=== PATIENT | female | born 1955 | race Caucasian/White ===

== ENCOUNTER → 2016-12-10 | Outpatient (CLI) | payer OTHER ==
--- NOTE | 2016-12-12 16:03 | SLEEPCENT ---
DATE OF PROCEDURE: 12/10/2016 REFERRING PHYSICIAN: Corey Brown MD Nocturnal polysomnography was performed for the titration of pressure therapy in this patient with a clinical diagnosis of obstructive sleep apnea syndrome confirmed by home testing which revealed a respiratory event index of 27. For testing, the patient was fit with a ResMed Quattro full face mask of extra-small size. 4 cm of water pressure were applied to the circuit and the lights were extinguished. 7 hours and 46 minutes of data were reviewed. There were 285 minutes of sleep identified. Sleep latency was prolonged at 58 minutes. Rapid eye movement (REM) sleep was prolonged at 164 minutes. Sleep architecture improved late in the study. There were two REM periods appreciated. Overall sleep efficiency was 63%. EKG showed a sinus rhythm with an average heart rate of 58 beats per minute. EEG showed normal waveforms for awake and sleep. Respiratory events were fully palliated with CPAP at a pressure of +7. There was, however, some persistent limb activity and limb movement arousal index was 10.9. IMPRESSION: Obstructive sleep apnea syndrome (G47.33). Periodic limb movement disorder (G47.61). Limb movement arousal index 10.9. RECOMMENDATION: Nightly use of pressure therapy at 7 cm of water should be sufficient to address the patient's respiratory events. Interventions to reduce the frequency of arousals from limb activity may also be needed.
== END ==
LOC: M SLEEP 19:54
PROVIDERS: ATTEND Nurse Practitioner Adult Health
DX: G47.33 Obstructive sleep apnea (adult) (pediatric) (principal); G47.61 Periodic limb movement disorder

== ENCOUNTER → 2016-12-11 | Outpatient (CLI) | payer OTHER ==
--- NOTE | 2016-12-17 13:24 | RADONC ---
RADIATION ONCOLOGY FOLLOWUP NOTE DATE: 12/11/2016 CHART NUMBER: [id number] DIAGNOSIS: Left breast cancer. STAGE: IA, [id number]. ECOG PERFORMANCE STATUS: 0 FOLLOWUP NOTE: Ms. Castellanos is a very pleasant 61-year-old white female with the diagnosis of a stage IA A, [id number] well-differentiated invasive ductal carcinoma of the left breast who is presenting to us today for routine followup visit 8 months post completion of external beam radiation therapy. The patient presents today reporting that she is doing quite well with no complaints at this time related to her radiation therapy or disease. She has no breast or bone pain. REVIEW OF SYSTEMS: The patient's review of systems is noncontributory. She denies nausea, vomiting, fevers, chills, night sweats, diplopia, headaches, anxiety or depression, anorexia, weight loss, visual disturbances, chest pain, urinary or bowel difficulties, bone pain, or neurological problems. PHYSICAL EXAMINATION: The patient is a well-developed, well-nourished white female in no acute distress. HEENT exam is normocephalic, atraumatic. Extraocular movements are intact. There is no palpable cervical, supraclavicular, infraclavicular, axillary, or inguinal lymphadenopathy present. Lungs are clear to auscultation and percussion. Heart has a regular rate and rhythm. Abdomen is benign with no hepatosplenomegaly, masses, or tenderness. Breast examination reveals no masses or discharge bilaterally. Skeletal examination reveals no tenderness to pressure or percussion of the bony skeleton. Extremities reveal no clubbing, cyanosis, or edema. Neurologic exam is grossly intact, as is the remainder of the physical examination. ASSESSMENT: The patient is clinically KARINA at this time and will be seen by us again in 6 months for further followup. She will also continue be followed by her other physicians as well. cc: Corey Brown MD *Dr. Chang *Marta Daniels MD *Sol Vinson NP *Jarod Zuleta MD
== END ==
LOC: M ONCR 15:04
PROVIDERS: ATTEND Radiology Radiation Oncology
DX: C50.412 Malignant neoplasm of upper-outer quadrant of left female breast (principal)

== ENCOUNTER → 2016-12-24 | Outpatient (CLI) | payer OTHER | LOC: M WUC 10:51 | PROVIDERS: ATTEND Family Medicine | DX: D50.9 Iron deficiency anemia, unspecified (principal); E78.5 Hyperlipidemia, unspecified; E11.9 Type 2 diabetes mellitus without complications ==

== ENCOUNTER → 2016-12-24 | Outpatient (REF) | payer OTHER ==
[2016-12-24 14:41] LABS: BASO % 0.4 % (0.0-1.0); EOS # 0.2 K/mm3 (0.0-0.50); EOS % 2.1 % (0.0-3.0); LARGE UNSTAINED CELL # 0.2 K/mm3 (0.0-0.4); LARGE UNSTAINED CELL % 1.9 % (0.0-4.0); LYMPH # 1.4 K/mm3 (1.5-4.5); MEAN CORPUSCULAR HEMOGLOBIN 30.1 pg (27.0-33.0); MEAN CORPUSCULAR HGB CONC 33.7 g/dl (32.0-36.5); MEAN CORPUSCULAR VOLUME 89.5 fl (80.0-96.0); MONO # 0.6 K/mm3 (0.0-0.8); MONO % 5.8 % (0.0-5.0); NEUTROPHILS # 7.7 K/mm3 (1.8-7.7); NEUTROPHILS % 77.8 % (36.0-66.0); PLATELET COUNT, AUTOMATED 324 k/mm3 (150-450); RED CELL DISTRIBUTION WIDTH 12.6 % (11.5-14.5); WHITE BLOOD COUNT 9.9 K/mm3 (4.0-10.0)
[2016-12-24 14:52] LABS: ALBUMIN 3.5 GM/DL (3.2-5.2); ALBUMIN/GLOBULIN RATIO 1.06 (1.00-1.93); ALKALINE PHOSPHATASE 51 U/L (45-117); ALT/SGPT 23 U/L (12-78); ANION GAP 8 MEQ/L (8-16); AST/SGOT 15 U/L (15-37); BILIRUBIN,TOTAL 0.7 MG/DL (0.2-1.0); BLOOD UREA NITROGEN 15 MG/DL (7-18); CALCIUM LEVEL 8.9 MG/DL (8.8-10.2); CARBON DIOXIDE LEVEL 33 MEQ/L (21-32); CHLORIDE LEVEL 100 MEQ/L (98-107); CHOLESTEROL LEVEL 139 MG/DL (<200); CREATININE FOR GFR 0.74 MG/DL (0.55-1.02); FERRITIN 21 NG/ML (8-252); GLOMERULAR FILTRATION RATE > 60.0 (>45); GLUCOSE, FASTING 112 MG/DL (80-110); PERCENT SATURATION 23.2 % (13.2-37.4); POTASSIUM SERUM 4.2 MEQ/L (3.5-5.1); SODIUM LEVEL 141 MEQ/L (136-145); TOTAL IRON BINDING CAPACITY 488 UG/DL (250-450); TOTAL PROTEIN 6.8 GM/DL (6.4-8.2); TRIGLYCERIDES LEVEL 347 MG/DL (<150)
== END ==
LOC: M SFHCPLAZ 10:31
PROVIDERS: ATTEND Family Medicine
DX: D50.9 Iron deficiency anemia, unspecified (principal); E78.5 Hyperlipidemia, unspecified; E11.9 Type 2 diabetes mellitus without complications

== ENCOUNTER → 2017-03-03 | Outpatient (REF) | payer OTHER ==
[2017-03-03 19:19] LABS: FREE T4 1.26 NG/DL (0.76-1.46); PERCENT SATURATION 17.3 % (13.2-37.4)
[2017-03-03 20:23] LABS: BASO % 0.6 % (0.0-1.0); EOS # 0.2 K/mm3 (0.0-0.50); EOS % 2.2 % (0.0-3.0); LARGE UNSTAINED CELL # 0.2 K/mm3 (0.0-0.4); LARGE UNSTAINED CELL % 2.5 % (0.0-4.0); LYMPH # 1.6 K/mm3 (1.5-4.5); LYMPH % 16.9 % (24.0-44.0); MEAN CORPUSCULAR HEMOGLOBIN 30.1 pg (27.0-33.0); MEAN CORPUSCULAR HGB CONC 33.8 g/dl (32.0-36.5); MEAN CORPUSCULAR VOLUME 89.1 fl (80.0-96.0); MONO # 0.6 K/mm3 (0.0-0.8); NEUTROPHILS # 5.9 K/mm3 (1.8-7.7); NEUTROPHILS % 70.8 % (36.0-66.0); PLATELET COUNT, AUTOMATED 354 k/mm3 (150-450); RED CELL DISTRIBUTION WIDTH 12.4 % (11.5-14.5); WHITE BLOOD COUNT 8.3 K/mm3 (4.0-10.0)
== END ==
LOC: M SFHCPLAZ 15:34
PROVIDERS: ATTEND Family Medicine
DX: R53.83 Other fatigue (principal); D50.9 Iron deficiency anemia, unspecified; E55.9 Vitamin D deficiency, unspecified

== ENCOUNTER → 2017-05-13 | Outpatient (REF) | payer OTHER ==
[2017-05-13 13:39] LABS: BASO % 0.5 % (0.0-1.0); EOS # 0.2 10^3/uL (0.0-0.50); EOS % 2.5 % (0.0-3.0); IMMATURE GRANULOCYTE % 0.6 % (0-0); LYMPH # 1.5 10^3/uL (1.5-4.5); LYMPH % 17.6 % (24.0-44.0); MEAN CORPUSCULAR HEMOGLOBIN 29.6 pg (27.0-33.0); MEAN CORPUSCULAR HGB CONC 32.9 g/dl (32.0-36.5); MEAN CORPUSCULAR VOLUME 89.8 fl (80.0-96.0); MONO # 0.7 10^3/uL (0.0-0.8); MONO % 8.8 % (0.0-5.0); NEUTROPHILS # 5.8 10^3/uL (1.8-7.7); PLATELET COUNT, AUTOMATED 295 10^3/uL (150-450); RED CELL DISTRIBUTION WIDTH 12.6 % (11.5-14.5); WHITE BLOOD COUNT 8.3 10^3/uL (4.0-10.0)
[2017-05-13 14:01] LABS: ALBUMIN 3.3 GM/DL (3.2-5.2); ALBUMIN/GLOBULIN RATIO 0.97 (1.00-1.93); ALKALINE PHOSPHATASE 57 U/L (45-117); ALT/SGPT 21 U/L (12-78); ANION GAP 9 MEQ/L (8-16); AST/SGOT 13 U/L (15-37); BILIRUBIN,TOTAL 0.6 MG/DL (0.2-1.0); BLOOD UREA NITROGEN 13 MG/DL (7-18); CALCIUM LEVEL 8.6 MG/DL (8.8-10.2); CARBON DIOXIDE LEVEL 32 MEQ/L (21-32); CHLORIDE LEVEL 101 MEQ/L (98-107); CREATININE FOR GFR 0.61 MG/DL (0.55-1.02); FERRITIN 21 NG/ML (8-252); GLOMERULAR FILTRATION RATE > 60.0 (>45); GLUCOSE, FASTING 93 MG/DL (80-110); POTASSIUM SERUM 3.9 MEQ/L (3.5-5.1); SODIUM LEVEL 142 MEQ/L (136-145); TOTAL PROTEIN 6.7 GM/DL (6.4-8.2)
== END ==
LOC: M SFHCPLAZ 10:09
PROVIDERS: ATTEND Family Medicine
DX: D50.9 Iron deficiency anemia, unspecified (principal); E55.9 Vitamin D deficiency, unspecified; E11.9 Type 2 diabetes mellitus without complications

== ENCOUNTER → 2017-06-03 | Outpatient (REF) | payer OTHER | LOC: M LAB REF 16:59 | PROVIDERS: ATTEND Family Medicine | DX: D23.5 Other benign neoplasm of skin of trunk (principal) ==

== ENCOUNTER → 2017-08-20 | Outpatient (REF) | payer OTHER ==
[2017-08-20 15:29] LABS: HEMATOCRIT 41.6 % (36.0-47.0); MEAN CORPUSCULAR HEMOGLOBIN 29.9 pg (27.0-33.0); MEAN CORPUSCULAR HGB CONC 33.7 g/dl (32.0-36.5); MEAN CORPUSCULAR VOLUME 88.9 fl (80.0-96.0); PLATELET COUNT, AUTOMATED 371 10^3/uL (150-450); RED BLOOD COUNT 4.68 10^6/uL (4.00-5.40); RED CELL DISTRIBUTION WIDTH 12.2 % (11.5-14.5); WHITE BLOOD COUNT 13.6 10^3/uL (4.0-10.0)
[2017-08-20 15:59] LABS: FERRITIN 55 NG/ML (8-252); IRON (FE) 55 UG/DL (50-170); PERCENT SATURATION 13.5 % (13.2-45.0); TOTAL IRON BINDING CAPACITY 407 UG/DL (250-450)
== END ==
LOC: M SFHCPLAZ 14:21
DX: R31.9 Hematuria, unspecified (principal)

== ENCOUNTER → 2017-12-10 | Outpatient (CLI) | payer OTHER | LOC: M ONCR 14:11 | DX: C50.412 Malignant neoplasm of upper-outer quadrant of left female breast (principal) | CPT/HCPCS: G0463 ==

== ENCOUNTER → 2017-12-15 | Outpatient (REF) | payer OTHER ==
[2017-12-15 13:40] LABS: ALBUMIN 3.2 GM/DL (3.2-5.2); ALBUMIN/GLOBULIN RATIO 0.94 (1.00-1.93); ALKALINE PHOSPHATASE 59 U/L (45-117); ALT/SGPT 18 U/L (12-78); ANION GAP 9 MEQ/L (8-16); AST/SGOT 14 U/L (7-37); BILIRUBIN,TOTAL 0.4 MG/DL (0.2-1.0); BLOOD UREA NITROGEN 15 MG/DL (7-18); C REACTIVE PROTEIN QUANTITATIV < 0.30 MG/DL (0.00-0.30); CALCIUM LEVEL 8.1 MG/DL (8.8-10.2); CARBON DIOXIDE LEVEL 29 MEQ/L (21-32); CHLORIDE LEVEL 102 MEQ/L (98-107); CHOLESTEROL LEVEL 114 MG/DL (<200); CHOLESTEROL RISK RATIO 3.677 (<5); CPK CREATINE PHOSPHOKINASE 65 U/L (26-192); CREATININE FOR GFR 0.62 MG/DL (0.55-1.30); GLOMERULAR FILTRATION RATE > 60.0 (>45); GLUCOSE, FASTING 97 MG/DL (70-100); HDL CHOLESTEROL 31 MG/DL (>40); LDL CHOLESTEROL 22.8 MG/DL (<100); MAGNESIUM LEVEL 1.9 MG/DL (1.8-2.4); NON-HDL-C 83 MG/DL; POTASSIUM SERUM 3.6 MEQ/L (3.5-5.1); SODIUM LEVEL 140 MEQ/L (136-145); TOTAL PROTEIN 6.6 GM/DL (6.4-8.2); TRIGLYCERIDES LEVEL 301 MG/DL (<150)
[2017-12-15 13:44] LABS: TOTAL 25(OH) VITAMIN D 71.2 NG/ML (30.0-100.0)
[2017-12-15 13:45] LABS: ESTIMATED AVERAGE GLUCOSE 134 MG/DL (60-110); HEMOGLOBIN A1c 6.3 %; PTH INTACT 68.7 PG/ML (18.5-88.0); VITAMIN B12 LEVEL 1391 PG/ML (247-911)
[2017-12-18 00:07] LABS: BORDETELLA PARAPERTUSSIS PCR Negative (Negative); BORDETELLA PERTUSSIS BY PCR Negative (Negative); INSULIN LEVEL 27.5 uIU/mL (2.6-24.9)
== END ==
LOC: M SFHCPLAZ 10:04
DX: E78.5 Hyperlipidemia, unspecified (principal); E11.9 Type 2 diabetes mellitus without complications; I10 Essential (primary) hypertension; R05 Cough; E55.9 Vitamin D deficiency, unspecified; D50.9 Iron deficiency anemia, unspecified

== ENCOUNTER → 2018-01-13 | Outpatient (REF) | payer OTHER | LOC: M SFHCPLAZ 17:00 | DX: N30.01 Acute cystitis with hematuria (principal) | CPT/HCPCS: 87086 ==

== ENCOUNTER → 2018-04-30 | Outpatient (REF) | payer MEDICARE, OTHER, SELFPAY ==
[2018-04-30 15:12] LABS: BASO % 0.5 % (0.0-1.0); EOS # 0.2 10^3/uL (0.0-0.50); EOS % 2.7 % (0.0-3.0); HEMATOCRIT 42.6 % (36.0-47.0); HEMOGLOBIN 13.9 g/dl (12.0-15.5); IMMATURE GRANULOCYTE % 0.6 % (0-3.0); LYMPH # 1.5 10^3/uL (1.5-4.5); LYMPH % 17.3 % (24.0-44.0); MEAN CORPUSCULAR HEMOGLOBIN 29.4 pg (27.0-33.0); MEAN CORPUSCULAR HGB CONC 32.6 g/dl (32.0-36.5); MEAN CORPUSCULAR VOLUME 90.3 fl (80.0-96.0); MONO # 0.8 10^3/uL (0.0-0.8); MONO % 9.4 % (0.0-5.0); NEUTROPHILS # 5.9 10^3/uL (1.8-7.7); NEUTROPHILS % 69.5 % (36.0-66.0); PLATELET COUNT, AUTOMATED 312 10^3/uL (150-450); RED BLOOD COUNT 4.72 10^6/uL (4.00-5.40); RED CELL DISTRIBUTION WIDTH 12.4 % (11.5-14.5); RETIC HEMOGLOBIN EQUIVALENT 34.7 pg (24-36); RETICULOCYTE # 99.1 10^9/L (17-77); RETICULOCYTE % 2.1 % (0.5-1.5); WHITE BLOOD COUNT 8.5 10^3/uL (4.0-10.0)
[2018-04-30 15:26] LABS: ALBUMIN 3.5 GM/DL (3.2-5.2); ALBUMIN/GLOBULIN RATIO 1.09 (1.00-1.93); ALKALINE PHOSPHATASE 50 U/L (45-117); ALT/SGPT 20 U/L (12-78); ANION GAP 10 MEQ/L (8-16); AST/SGOT 14 U/L (7-37); BILIRUBIN,TOTAL 0.5 MG/DL (0.2-1.0); BLOOD UREA NITROGEN 17 MG/DL (7-18); CALCIUM LEVEL 8.8 MG/DL (8.8-10.2); CARBON DIOXIDE LEVEL 28 MEQ/L (21-32); CHLORIDE LEVEL 102 MEQ/L (98-107); CREATININE FOR GFR 0.74 MG/DL (0.55-1.30); GLOMERULAR FILTRATION RATE > 60.0 (>45); GLUCOSE, FASTING 112 MG/DL (70-100); POTASSIUM SERUM 3.9 MEQ/L (3.5-5.1); SODIUM LEVEL 140 MEQ/L (136-145); TOTAL PROTEIN 6.7 GM/DL (6.4-8.2)
[2018-04-30 15:43] LABS: ESTIMATED AVERAGE GLUCOSE 131 MG/DL (60-110); HEMOGLOBIN A1c 6.2 %
[2018-04-30 15:58] LABS: PTH INTACT 39.5 PG/ML (18.5-88.0); TOTAL 25(OH) VITAMIN D 90.8 NG/ML (30.0-100.0)
[2018-05-01 14:14] LABS: INSULIN LEVEL 25.8 uIU/mL (2.6-24.9)
== END ==
LOC: M SFHCPLAZ 10:26
DX: D50.9 Iron deficiency anemia, unspecified (principal); E55.9 Vitamin D deficiency, unspecified; E11.9 Type 2 diabetes mellitus without complications
CPT/HCPCS: 83525

== ENCOUNTER → 2018-12-24 | Outpatient (REF) | payer MEDICARE ==
[2018-12-24 13:27] LABS: BASO # 0.1 10^3/uL (0.0-0.2); BASO % 0.5 % (0.0-1.0); EOS # 0.2 10^3/uL (0.0-0.50); EOS % 2.6 % (0.0-3.0); HEMATOCRIT 41.6 % (36.0-47.0); HEMOGLOBIN 13.3 g/dl (12.0-15.5); LYMPH # 1.3 10^3/uL (1.5-4.5); LYMPH % 13.9 % (24.0-44.0); MEAN CORPUSCULAR HEMOGLOBIN 29.1 pg (27.0-33.0); MONO # 0.7 10^3/uL (0.0-0.8); MONO % 7.9 % (0.0-5.0); NEUTROPHILS # 6.8 10^3/uL (1.8-7.7); NEUTROPHILS % 74.8 % (36.0-66.0); PLATELET COUNT, AUTOMATED 336 10^3/uL (150-450); RED BLOOD COUNT 4.57 10^6/uL (4.00-5.40); WHITE BLOOD COUNT 9.1 10^3/uL (4.0-10.0)
[2018-12-24 14:46] LABS: HEMOGLOBIN A1c 6.4 %
== END ==
LOC: M SFHCPLAZ 09:43
PROVIDERS: ATTEND Family Medicine
DX: D50.9 Iron deficiency anemia, unspecified (principal); E11.9 Type 2 diabetes mellitus without complications

== ENCOUNTER → 2019-05-04 | Outpatient (REF) | payer MEDICARE ==
[2019-05-04 12:46] LABS: ALBUMIN 3.2 GM/DL (3.2-5.2); ALT/SGPT 17 U/L (12-78); BILIRUBIN,TOTAL 0.4 MG/DL (0.2-1.0); BLOOD UREA NITROGEN 14 MG/DL (7-18); CALCIUM LEVEL 8.8 MG/DL (8.8-10.2); CARBON DIOXIDE LEVEL 30 MEQ/L (21-32); CHLORIDE LEVEL 101 MEQ/L (98-107); CREATININE FOR GFR 0.55 MG/DL (0.55-1.30); GLOMERULAR FILTRATION RATE > 60.0 (>45); GLUCOSE, FASTING 95 MG/DL (70-100); MAGNESIUM LEVEL 1.7 MG/DL (1.8-2.4); NT-PRO BNP 47 PG/ML (<125); POTASSIUM SERUM 4.2 MEQ/L (3.5-5.1); SODIUM LEVEL 139 MEQ/L (136-145); TOTAL PROTEIN 6.4 GM/DL (6.4-8.2)
== END ==
LOC: M SFHCPLAZ 10:23
PROVIDERS: ATTEND Family Medicine
DX: I10 Essential (primary) hypertension (principal)

== ENCOUNTER → 2019-06-22 | Outpatient (REF) | payer MEDICARE ==
[2019-06-22 12:39] LABS: BASO % 0.3 % (0.0-1.0); EOS # 0.3 10^3/uL (0.0-0.5); HEMATOCRIT 40.8 % (36.0-47.0); HEMOGLOBIN 12.9 g/dl (12.0-15.5); LYMPH # 1.6 10^3/uL (1.5-5.0); LYMPH % 17.2 % (24.0-44.0); MEAN CORPUSCULAR HEMOGLOBIN 28.9 pg (27.0-33.0); MEAN CORPUSCULAR HGB CONC 31.6 g/dl (32.0-36.5); MEAN CORPUSCULAR VOLUME 91.3 fl (80.0-96.0); MONO # 0.9 10^3/uL (0.0-0.8); MONO % 9.7 % (0.0-5.0); NEUTROPHILS # 6.3 10^3/uL (1.5-8.5); NEUTROPHILS % 69.5 % (36.0-66.0); PLATELET COUNT, AUTOMATED 320 10^3/uL (150-450); RED BLOOD COUNT 4.47 10^6/uL (4.00-5.40)
[2019-06-22 12:49] LABS: ALBUMIN 3.4 GM/DL (3.2-5.2); ALT/SGPT 17 U/L (12-78); BILIRUBIN,TOTAL 0.5 MG/DL (0.2-1.0); BLOOD UREA NITROGEN 16 MG/DL (7-18); CARBON DIOXIDE LEVEL 31 MEQ/L (21-32); CHLORIDE LEVEL 100 MEQ/L (98-107); CHOLESTEROL LEVEL 130 MG/DL (<200); CHOLESTEROL RISK RATIO 2.954 (<5); CPK CREATINE PHOSPHOKINASE 85 U/L (26-192); CREATININE FOR GFR 0.65 MG/DL (0.55-1.30); FREE T4 1.19 NG/DL (0.76-1.46); GLOMERULAR FILTRATION RATE > 60.0 (>45); GLUCOSE, FASTING 94 MG/DL (70-100); HDL CHOLESTEROL 44 MG/DL (>40); LDL CHOLESTEROL 32 MG/DL (<100); NON-HDL-C 86 MG/DL; POTASSIUM SERUM 4.1 MEQ/L (3.5-5.1); SODIUM LEVEL 138 MEQ/L (136-145); TOTAL PROTEIN 6.8 GM/DL (6.4-8.2); TRIGLYCERIDES LEVEL 272 MG/DL (<150)
[2019-06-22 12:51] LABS: PTH INTACT 57.8 PG/ML (18.5-88.0); TOTAL 25(OH) VITAMIN D 72.7 NG/ML (30.0-100.0)
[2019-06-22 13:06] LABS: HEMOGLOBIN A1c 6.4 %
== END ==
LOC: M SFHCPLAZ 09:45
PROVIDERS: ATTEND Family Medicine
DX: E11.9 Type 2 diabetes mellitus without complications (principal); D50.9 Iron deficiency anemia, unspecified; E78.5 Hyperlipidemia, unspecified; E55.9 Vitamin D deficiency, unspecified

== ENCOUNTER → 2020-02-28 | Outpatient (CLI) | payer MEDICARE ==
[2020-02-28 11:53] LABS: BASO % 0.4 % (0.0-1.0); EOS # 0.3 10^3/uL (0.0-0.5); EOS % 3.4 % (0.0-3.0); HEMOGLOBIN 12.4 g/dl (12.0-15.5); LYMPH # 1.7 10^3/uL (1.5-5.0); LYMPH % 17.7 % (24.0-44.0); MEAN CORPUSCULAR HEMOGLOBIN 28.2 pg (27.0-33.0); MEAN CORPUSCULAR HGB CONC 31.8 g/dl (32.0-36.5); MEAN CORPUSCULAR VOLUME 88.6 fl (80.0-96.0); MONO # 0.9 10^3/uL (0.0-0.8); MONO % 9.7 % (0.0-5.0); NEUTROPHILS # 6.4 10^3/uL (1.5-8.5); NEUTROPHILS % 68.4 % (36.0-66.0); PLATELET COUNT, AUTOMATED 339 10^3/uL (150-450); WHITE BLOOD COUNT 9.3 10^3/uL (4.0-10.0)
[2020-02-28 12:38] LABS: ALBUMIN 3.2 GM/DL (3.2-5.2); ALT/SGPT 16 U/L (12-78); BILIRUBIN,TOTAL 0.3 MG/DL (0.2-1.0); BLOOD UREA NITROGEN 18 MG/DL (7-18); C REACTIVE PROTEIN QUANTITATIV < 0.30 MG/DL (0.00-0.30); CALCIUM LEVEL 8.4 MG/DL (8.8-10.2); CARBON DIOXIDE LEVEL 29 MEQ/L (21-32); CHLORIDE LEVEL 100 MEQ/L (98-107); CHOLESTEROL LEVEL 129 MG/DL (<200); CHOLESTEROL RISK RATIO 3.486 (<5); CPK CREATINE PHOSPHOKINASE 82 U/L (26-192); CREATININE FOR GFR 0.59 MG/DL (0.55-1.30); FREE T4 1.14 NG/DL (0.76-1.46); GLOMERULAR FILTRATION RATE > 60.0 (>45); GLUCOSE, FASTING 98 MG/DL (70-100); HDL CHOLESTEROL 37 MG/DL (>40); LDL CHOLESTEROL 32 MG/DL (<100); NON-HDL-C 92 MG/DL; POTASSIUM SERUM 3.8 MEQ/L (3.5-5.1); SODIUM LEVEL 139 MEQ/L (136-145); TOTAL PROTEIN 6.7 GM/DL (6.4-8.2); TRIGLYCERIDES LEVEL 298 MG/DL (<150)
[2020-02-28 13:10] LABS: VITAMIN B12 LEVEL 783 PG/ML (247-911)
[2020-02-28 16:13] LABS: HEMOGLOBIN A1c 5.9 %
== END ==
LOC: M WUC 09:44
PROVIDERS: ATTEND Family Medicine
DX: E78.5 Hyperlipidemia, unspecified (principal); D50.9 Iron deficiency anemia, unspecified; I10 Essential (primary) hypertension; E11.9 Type 2 diabetes mellitus without complications

== ENCOUNTER → 2020-07-17 | Outpatient (CLI) | payer MEDICARE ==
[2020-07-17 17:37] LABS: BASO % 0.4 % (0.0-1.0); EOS # 0.4 10^3/uL (0.0-0.5); EOS % 3.2 % (0.0-3.0); HEMATOCRIT 40.9 % (36.0-47.0); HEMOGLOBIN 12.5 g/dl (12.0-15.5); LYMPH # 1.3 10^3/uL (1.5-5.0); LYMPH % 12.1 % (24.0-44.0); MEAN CORPUSCULAR HEMOGLOBIN 27.7 pg (27.0-33.0); MEAN CORPUSCULAR HGB CONC 30.6 g/dl (32.0-36.5); MEAN CORPUSCULAR VOLUME 90.5 fl (80.0-96.0); NEUTROPHILS # 8.2 10^3/uL (1.5-8.5); NEUTROPHILS % 74.6 % (36.0-66.0); PLATELET COUNT, AUTOMATED 339 10^3/uL (150-450); RED BLOOD COUNT 4.52 10^6/uL (4.00-5.40)
[2020-07-17 17:39] LABS: AMORPHOUS SEDIMENT SMALL (NEGATIVE); APPEARANCE, URINE TURBID (CLEAR); BACTERIA, URINE AUTO 2+ (NEGATIVE); BILIRUBIN, URINE AUTO NEGATIVE (NEGATIVE); BLOOD, URINE BLOOD NEGATIVE (NEGATIVE); COLOR, URINE YELLOW (YELLOW); GLUCOSE, URINE (UA) AUTO NEGATIVE (NEGATIVE); KETONE, URINE AUTO NEGATIVE (NEGATIVE); LEUKOCYTE ESTERASE, URINE AUTO TRACE (NEGATIVE); NITRITE, URINE AUTO NEGATIVE (NEGATIVE); PROTEIN, URINE AUTO NEGATIVE (NEGATIVE); RBC, URINE AUTO 0 /HPF (0-3); SPECIFIC GRAVITY URINE AUTO 1.028 (1.002-1.035); SQUAMOUS EPITHELIAL CELL UR AU 4 /HPF (0-6); UROBILINOGEN, URINE AUTO 0.2 mg/dL (0.0-2.0); WBC, URINE AUTO 6 /HPF (0-3)
[2020-07-17 17:43] LABS: ALBUMIN 3.3 GM/DL (3.2-5.2); ALT/SGPT 14 U/L (12-78); BILIRUBIN,TOTAL 0.3 MG/DL (0.2-1.0); BLOOD UREA NITROGEN 19 MG/DL (7-18); CALCIUM LEVEL 8.8 MG/DL (8.8-10.2); CARBON DIOXIDE LEVEL 31 MEQ/L (21-32); CHLORIDE LEVEL 103 MEQ/L (98-107); CREATININE FOR GFR 0.64 MG/DL (0.55-1.30); GLOMERULAR FILTRATION RATE > 60.0 (>45); GLUCOSE, FASTING 101 MG/DL (70-100); POTASSIUM SERUM 4.1 MEQ/L (3.5-5.1); SODIUM LEVEL 139 MEQ/L (136-145); TOTAL PROTEIN 6.7 GM/DL (6.4-8.2)
[2020-07-17 17:50] LABS: TOTAL 25(OH) VITAMIN D 66.3 NG/ML (30.0-100.0)
[2020-07-17 17:51] LABS: PTH INTACT 59.6 PG/ML (18.5-88.0)
[2020-07-17 18:26] LABS: MALB URINE SIEMENS 20.6 MG/L; MAU/CREAT RATIO 9.8 MCG/MG (0.0-30.0)
== END ==
LOC: M WUC 10:26
PROVIDERS: ATTEND Family Medicine
DX: E78.5 Hyperlipidemia, unspecified (principal); E11.9 Type 2 diabetes mellitus without complications; D50.9 Iron deficiency anemia, unspecified; I10 Essential (primary) hypertension; E55.9 Vitamin D deficiency, unspecified

== ENCOUNTER → 2021-03-15 | Outpatient (CLI) | payer MEDICARE ==
[2021-03-15 16:22] LABS: C REACTIVE PROTEIN QUANTITATIV 0.55 MG/DL (0.00-0.30); CHOLESTEROL RISK RATIO 3.526 (<5)
[2021-03-15 16:32] LABS: BASO % 0.4 % (0.0-1.0); EOS # 0.3 10^3/uL (0.0-0.5); EOS % 2.4 % (0.0-3.0); HEMATOCRIT 40.5 % (36.0-47.0); HEMOGLOBIN 12.7 g/dl (12.0-15.5); LYMPH # 1.7 10^3/uL (1.5-5.0); LYMPH % 16.1 % (24.0-44.0); MEAN CORPUSCULAR HEMOGLOBIN 28.6 pg (27.0-33.0); MEAN CORPUSCULAR HGB CONC 31.4 g/dl (32.0-36.5); MEAN CORPUSCULAR VOLUME 91.2 fl (80.0-96.0); MONO # 0.9 10^3/uL (0.0-0.8); MONO % 7.8 % (2.0-8.0); NEUTROPHILS # 7.9 10^3/uL (1.5-8.5); NEUTROPHILS % 72.8 % (36.0-66.0); PLATELET COUNT, AUTOMATED 323 10^3/uL (150-450); RED BLOOD COUNT 4.44 10^6/uL (4.00-5.40); WHITE BLOOD COUNT 10.8 10^3/uL (4.0-10.0)
[2021-03-15 18:44] LABS: ERYTHROCYTE SEDIMENTATION RATE 12 mm/hr (0-30)
== END ==
LOC: M WUC 10:35
PROVIDERS: ATTEND Family Medicine
DX: M79.10 Myalgia, unspecified site (principal)

== ENCOUNTER → 2021-04-25 | Outpatient (CLI) | payer MEDICARE ==
[~2021-04-25] MED LIST: ISOVUE-370 76% 100ML VIAL As Ordered ONE
[2021-04-25 15:58] LABS: BASO # 0.1 10^3/uL (0.0-0.2); BASO % 0.5 % (0.0-1.0); EOS # 0.3 10^3/uL (0.0-0.5); EOS % 2.5 % (0.0-3.0); HEMATOCRIT 38.4 % (36.0-47.0); HEMOGLOBIN 12.5 g/dl (12.0-15.5); LYMPH # 1.8 10^3/uL (1.5-5.0); MEAN CORPUSCULAR HEMOGLOBIN 28.2 pg (27.0-33.0); MEAN CORPUSCULAR HGB CONC 32.6 g/dl (32.0-36.5); MEAN CORPUSCULAR VOLUME 86.5 fl (80.0-96.0); MONO # 0.9 10^3/uL (0.0-0.8); MONO % 9.4 % (2.0-8.0); NEUTROPHILS # 6.8 10^3/uL (1.5-8.5); PLATELET COUNT, AUTOMATED 351 10^3/uL (150-450); RED BLOOD COUNT 4.44 10^6/uL (4.00-5.40); WHITE BLOOD COUNT 9.9 10^3/uL (4.0-10.0)
[2021-04-25 16:28] LABS: ALT/SGPT 20 U/L (12-78); BILIRUBIN,TOTAL 0.3 MG/DL (0.2-1.0); BLOOD UREA NITROGEN 14 MG/DL (7-18); CALCIUM LEVEL 8.6 MG/DL (8.8-10.2); CARBON DIOXIDE LEVEL 28 MEQ/L (21-32); CHLORIDE LEVEL 104 MEQ/L (98-107); CREATININE FOR GFR 0.71 MG/DL (0.55-1.30); FERRITIN 15 NG/ML (8-252); GLOMERULAR FILTRATION RATE > 60.0 (>45); GLUCOSE, FASTING 122 MG/DL (70-100); POTASSIUM SERUM 3.8 MEQ/L (3.5-5.1); SODIUM LEVEL 139 MEQ/L (136-145); TOTAL PROTEIN 6.8 GM/DL (6.4-8.2)
[2021-04-25 16:47] LABS: APPEARANCE, URINE CLEAR (CLEAR); BACTERIA, URINE AUTO NEGATIVE (NEGATIVE); BILIRUBIN, URINE AUTO NEGATIVE (NEGATIVE); BLOOD, URINE BLOOD NEGATIVE (NEGATIVE); COLOR, URINE YELLOW (YELLOW); GLUCOSE, URINE (UA) AUTO NEGATIVE (NEGATIVE); KETONE, URINE AUTO NEGATIVE (NEGATIVE); LEUKOCYTE ESTERASE, URINE AUTO 1+ (NEGATIVE); NITRITE, URINE AUTO NEGATIVE (NEGATIVE); PROTEIN, URINE AUTO NEGATIVE (NEGATIVE); RBC, URINE AUTO 0 /HPF (0-3); SPECIFIC GRAVITY URINE AUTO 1.019 (1.002-1.035); SQUAMOUS EPITHELIAL CELL UR AU 1 /HPF (0-6); UROBILINOGEN, URINE AUTO 0.2 mg/dL (0.0-2.0); WBC, URINE AUTO 13 /HPF (0-3)
--- NOTE | 2021-04-25 18:36 | REPVR ---
PROCEDURE INFORMATION: Exam: CT Abdomen And Pelvis Without And With Contrast Exam date and time: 04/25/2021 5:23 PM Age: 66 years old Clinical indication: Other: Hematuria TECHNIQUE: Imaging protocol: Computed tomography of the abdomen and pelvis without and with contrast. Radiation optimization: All CT scans at this facility use at least one of these dose optimization techniques: automated exposure control; mA and/or kV adjustment per patient size (includes targeted exams where dose is matched to clinical indication); or iterative reconstruction. Contrast material: ISOVUE 370; Contrast volume: 100 ml; Contrast route: INTRAVENOUS (IV); COMPARISON: CT ABD PELVIS WITH CONTRAST 07/13/2014 2:02 PM FINDINGS: Lungs: The lung bases are unremarkable. Liver: There are no focal liver lesions other than 2 adjacent probable cysts the larger of the 2 measures 9 mm unchanged in appearance in comparison to the 07/13/2014 CT. Gallbladder and bile ducts: The gallbladder is unremarkable. Pancreas: The pancreas is normal. Spleen: The spleen is unremarkable. Adrenal glands: The adrenal glands are unremarkable. Kidneys and ureters: No renal calculi or hydronephrosis. No renal mass. Two probable left renal cortical cysts larger measuring 1.5 cm. These were also present on the 07/13/2014 CT. No follow-up required. Stomach and bowel: There is no evidence of intestinal obstruction. There are diverticula in the sigmoid colon with some stranding in the adjacent soft tissues series 301, images 111-116. There is no adjacent abscess or evidence of localized perforation. There is also soft tissue stranding surrounding the distal descending colon series 402 images 44-46. Appendix: No evidence of appendicitis. Intraperitoneal space: Unremarkable. No free air. No significant fluid collection. Vasculature: There is no evidence of an infrarenal abdominal aortic aneurysm. There is mild atherosclerotic calcification. Lymph nodes: Unremarkable. No enlarged lymph nodes. Urinary bladder: The urinary bladder is decompressed and therefore not well assessed. It appears to contain an air bubble likely due to recent instrumentation. No obvious mass on the delayed images. Reproductive: Unremarkable as visualized. Bones/joints: Skeletal degeneration with a grade 1 anterior spondylolisthesis of L4 on L5 with likely spinal canal stenosis which may affect the L4 and L5 nerve roots. This was also present on the prior CT but degeneration has progressed. Soft tissues: There is a fat-containing umbilical hernia. There surgical clips along the peritoneal margin anteriorly and in both inguinal regions. There appears to be a fat containing left inguinal hernia. IMPRESSION: Probable acute sigmoid and descending colonic diverticulitis without evidence of perforation or abscess. COMMENTS: Consistent with the [employer]'s Incidental Findings Committee white paper (J Am Leona Radiol 2018): Any incidental renal lesion less than 1 cm or classified as too small to characterize, or any incidental cystic renal lesion characterized as simple-appearing, is likely benign. No follow-up imaging is recommended for these lesions per consensus recommendations based on imaging criteria. Electronically signed by: Dilcia Hendrix On 04/25/2021 18:35:32 PM
== END ==
LOC: M RAD 14:57
PROVIDERS: ATTEND Family Medicine
DX: R31.9 Hematuria, unspecified (principal); D50.9 Iron deficiency anemia, unspecified
CPT/HCPCS: 36415; 74178; 80053; 81001; 82728; 85025; 87086; Q9967

== ENCOUNTER → 2021-04-25 | Outpatient (REF) | payer MEDICARE ==
[~2021-04-25] MED LIST changes: +AMBI5TAB PO; +ASPI81TA26 PO; +BIOT2500 PO; +BUSP10TA PO; +CARV3.12 PO; +CLAR10CA3 PO; +CYAN500T14 PO; +D31000TA2 PO; +DICL20GE TOP; -ISOVUE-370 76% 100ML VIAL As Ordered ONE; +LASI20TA3 PO; +LIPI20TA PO; +MAGN400C2 PO; +METF-838 PO; +MIDN1CHW PO; +OCUV1CAP4 PO; +OMEP40CA4 PO; +PROBCAP14 PO; +TAMO20TA8 PO; +TELM1TAB33 PO; +TRIA37.53 PO; +TUMS500C PO; +VITA-36 PO
[2021-04-25 12:17] LABS: APPEARANCE, URINE CLEAR (CLEAR); BACTERIA, URINE AUTO NEGATIVE (NEGATIVE); BILIRUBIN, URINE AUTO NEGATIVE (NEGATIVE); BLOOD, URINE BLOOD 3+ (NEGATIVE); COLOR, URINE STRAW (YELLOW); GLUCOSE, URINE (UA) AUTO NEGATIVE (NEGATIVE); KETONE, URINE AUTO NEGATIVE (NEGATIVE); LEUKOCYTE ESTERASE, URINE AUTO 1+ (NEGATIVE); NITRITE, URINE AUTO NEGATIVE (NEGATIVE); PROTEIN, URINE AUTO NEGATIVE (NEGATIVE); RBC, URINE AUTO 0 /HPF (0-3); SPECIFIC GRAVITY URINE AUTO 1.003 (1.002-1.035); SQUAMOUS EPITHELIAL CELL UR AU 0 /HPF (0-6); UROBILINOGEN, URINE AUTO 0.2 mg/dL (0.0-2.0); WBC, URINE AUTO 2 /HPF (0-3)
== END ==
LOC: M SFHCPLAZ 04-24 09:58
PROVIDERS: ATTEND Family Medicine
DX: R31.0 Gross hematuria (principal)

== ENCOUNTER → 2021-05-25 | Outpatient (CLI) | payer MEDICARE | LOC: M LABSMTC 09:47 | PROVIDERS: ATTEND Anesthesiology | DX: Z01.812 Encounter for preprocedural laboratory examination (principal); Z20.822 Contact with and (suspected) exposure to COVID-19 ==

== ENCOUNTER 2021-05-30 12:43 | Day surgery (SDC) | payer MEDICARE ==
[~2021-05-30] VITALS: Ht 154.9 cm; Wt 80.0 kg
[~2021-05-30 12:43] MED LIST changes: -CLAR10CA3 PO; +NS 1,000 ML IV ONE
--- OUTSIDE RECORDS SUMMARY | 2021-05-30 12:50 | CCD ---
Author Author [facility] Organization [facility] Address Unknown Phone Unavailable Care Team Providers Care Sanitarian Name Role Phone Corey Brown Unavailable PROBLEMS Type Condition ICD9-CM Code MLL59-LO Code Onset Dates Condition S tatus W/U Status Risk SNOMED Code Notes Problem Anxiety disorder F41.9 Active confirmed 197 643569 Problem Vitamin D deficiency E55.9 Active confirmed 20186227 Problem Peptic ulcer disease K27.9 Active confirmed 59435082 Problem Primary invasive malignant neoplasm of female breast C50.919 Active confirmed 859014478 Problem 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 Active confirmed 5582900 Problem Aphthous ulcer K12.0 Active confirmed 95418 7000 Problem Fe deficiency anemia D50.9 Active confirmed 20645737 Problem Venous insufficiency I87.2 Active confirmed 44692339 Problem Osteopenia M85.80 Active confirmed 751223410 Problem Hyperlipidemia E78.5 Active confirmed 87460 004 Problem Allergic rhinitis J30.9 Active confirmed 61 416916 Problem Insomnia G47.00 Active confirmed 276737377 Problem Sensorineural hearing loss (SNHL) of both ears H90 .3 Active confirmed 023467904 Problem THA (obstructive sleep apnea) G47.33 Active confirm ed 53957163 Problem Impingement syndrome of right shoulder M75.41 A ctive confirmed 259808273 Problem Acute cystitis with hematuria N30.01 Active confirm ed 66597921 Problem Constipation, chronic K59.09 Active confirmed 587159179 Problem Palpitations R00.2 Active confirmed 0839956 2 Problem Hypertension I10 Active confirmed 0611002 3 Problem Breast cancer screening Z12.39 Active confirmed 321138650 Problem Eczema of both external ears H60.543 Active confirm ed 78054671 Problem T2DM (type 2 diabetes mellitus) E11.9 Active confi rmed 49212470 Problem Primary osteoarthritis of both knees M17.0 Act rafy confirmed 408659323 Problem FH: colon cancer Z80.0 Active confirmed 312 749744 Problem JAYANT (generalized anxiety disorder) F41.1 Activ e confirmed 90397095 Problem Rosacea L71.9 Active confirmed 362031787 ALLERGIES Allergen (clinical drug ingredient) Drug/Non Drug Allergy do cumented on EMR Reaction Allergy Type Onset Date Status Compazine convulsion Drug Allergy Active Penicillin (For Allergies Use Only) patient unsure Drug Al lergy Active ENCOUNTERS from 1953 to 2021-04-26 Encounter Location Date Provider Diagnosis [place] [id number] [facility] [phone] [place] [address] 08 Apr, 2021 Corey Brown IMMUNIZATIONS Vaccine Route Administration Date Status Zoster 50mcg/0.5mL Shingrix IM Intramuscular January 25, 2019 Adm inistered Zoster 0.65mL Zostavax IM Intramuscular Jul 06, 2013 Administ ered Pneumococcal 0.5mL Prevnar 13 IM Intramuscular Jul 09, 2016 A dministered Influenza 6mo & up Fluzone IM Intramuscular Jun 20, 2016 Admi nistered Influenza 6mo & up Fluzone IM Intramuscular May 30, 2014 Admi nistered Influenza 6mo & up Fluzone IM Intramuscular Jul 06, 2013 Admi nistered Influenza 18 yrs & older Flublok IM Intramuscular Jun 09, 2018 Administered Influenza 6mo & up Fluzone IM Intramuscular Jun 26, 2012 Admi nistered COVID-19 dose #1 given elsewhere Unspecified IM Intramuscular Ja n 2020 Administered Influenza 6mo & up Fluzone IM Intramuscular Jul 26, 2011 Admi nistered COVID-19 dose #2 given elsewhere Unspecified IM Intramuscular Fe b 2020 Administered Influenza 6mo & up Fluzone IM Intramuscular Jul 02, 2010 Admi nistered SOCIAL HISTORY Tobacco Use: Social History Observation Description Date Details (start date - stop date) Former Smoker Sex Assigned At : Social History Observation Description Sex Assigned At Unknown Language: Question Answer Notes Languages spoken: Estonian Yarsani: Question Answer Notes Yarsani 21 [employer] Sexual Hx: Question Answer Notes Had sex in the last 12 months (vaginal, oral, or anal)? Yes Have you ever had an STD? No with Men only Use protection? No Alcohol Screening: Question Answer Notes Did you have a drink containing alcohol in the past year? Ye s Points 1 Interpretation Negative How often did you have six or more drinks on one occas ion in the past year? Never (0 points) How many drinks did you have on a typica l day when you were drinking in the past year? 1 or 2 (0 points) How often did you have a drink containing alcohol in t he past year? Monthly or less (1 point) BMI Care Goal Follow-Up Question Answer Notes Above Normal BMI Follow-Up Giving encouragement to exercise Tobacco Use: Question Answer Notes Are you a: former smoker How long has it been since you last smoked? > 10 years REASON FOR REFERRAL No Information VITAL SIGNS No information MEDICATIONS Medication SIG (Take, Route, Frequency, Duration) Notes Start Da te End Date Status Aspirin 81 81 MG 1 tablet Orally Once a day Active Furosemide 20 MG 1 tablet Orally every morning prn edema for 90 day(s ) Active OneTouch Verio - as directed In Vitro AC bid for 90 day(s) Active busPIRone HCl 10 mg 1 tablet Orally Twice a day for 90 day(s) Active Loratadine 10 MG 1 tablet Orally Once a day for 90 day(s) Active Calcium 1000 mcg 1 tablet with food Orally Once a day for 90 day(s) Active Lancets - as directed intradermally bid DX: E11.8 for 90 day(s) December, Active Dyazide 37.5-25 MG 1 tablet by mouth Once a day for 90 day(s) Active Docusate Sodium 100 MG 1 capsule as needed Orally Once a day Active Carvedilol 3.125 MG 1 tab Orally bid for 90 Active Atorvastatin Calcium 40 MG 1 tablet Orally Once a day for 90 day(s) Active Chlorhexidine Gluconate 0.12 % 15 ml Mouth/Throat swis h and spit BId for 90 day(s) Nov, Active Carvedilol 3.125 MG 1 tab Orally bid for 90 day(s) Active Triamcinolone Acetonide 0.1 % 1 application thin layer Mouth/Throat before bedtime for 30 day(s) Mar, Active Desonide 0.05 % 1 application to affected ar ea Externally Twice a day x 7 days c flares for 30 day(s) Active Acidophilus 2038254088 1 cap(s) Orally daily Active Voltaren 1 % 4 gm Transdermal four times daily to B knees for 30 day( s) Active Lutein 6 MG 2 capsules Orally Once a day Active Benzonatate 200 MG 1 capsule Orally bid prn for 30 day(s) Aug, Active Zolpidem Tartrate 10 MG 1 tab Orally at bedtime prn insomnia for 30 day(s) Mar, Active ALPRAZolam 0.5 MG 1 tablet Orally bid prn anxiety for 30 day(s) Mar, Active Minocycline HCl 100 MG 1 capsule dissolve in 6 oz w ater, rinse x 5 mins Orally every 12 hrs Nov, Active Telmisartan 20 MG 1 tablet Orally before bedtime Active Tamoxifen Citrate 20 MG 1 tablet Orally Once a day for 90 day(s) Active Telmisartan 20 1 tablet Orally at bedtime for 90 day(s) Active Cyanocobalamin 1000 MCG 1 tablet Orally Once a day for 30 day(s) Active Triamterene-HCTZ 37.5-25 MG TAKE ONE CAPSULE BY MOUTH EVERY MORNING Orally Once a day for 90 day(s) Active Vitamin D3 Super Strength 5000 unit 1 tablet Orally Once a day Active Calcium 500 MG 2 tablet with meals Orally Twice a day for 90 da y(s) Sep, Active Tums Ultra 1000 1000 MG 1 tablet Orally Once a day for 90 day(s) December, Active metFORMIN HCl ER 750 MG 1 tab Orally AC BID for 90 day(s) Active busPIRone HCl 10 mg 1 tablet Orally Twice a day for 90 day(s) Active Omeprazole 40 MG 1 capsule Orally AC dinner for 90 day(s) Active predniSONE 20 MG 1 tablet Orally BID x 3 days c apthous ulcers f or 30 day(s) Active Amoxicillin-Pot Clavulanate 875-125 MG 1 tablet Orally every 12 hrs for 10 day(s) Apr, Active Culturelle - 1 cap Orally bid for 10 day(s) Apr, Active PROCEDURES No Information RESULTS No Results REASON FOR VISIT No Information MEDICAL (GENERAL) HISTORY Type Description Date Medical History hypertension-05/2014 low risk RST-Anteco l Medical History hyperlipidemia 2B Medical History T2DM NID Medical History vitamin D deficiency Medical History GERD/hiatal hernia, gatric u lcer, acute/chronic esophagitis by biopsy by 03/2012 EGD-Khadra/06/2014 UGI bleed c 2 blood loss anemia 2 probable gastric ulcer 2 ibuprofen/aspirin-07/2014 EGD small HH, moderate gastritis , - antral biopsy/03/2019 EGD antral polypoid -benign bx-Canales Medical History chronic MDD/JAYANT/chronic insomnia, sleep- onset Medical History leukocytosis, thrombocytosis-mild Medical History 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 Angel Medical History invasive ductal carcinoma, n uclear grade 2 detected by 11/2015 mammogram/3 core biopsies at [facility] Medical History KNY-woqtda-53/2016 HST SYEDA 27 c SaO2 to 71% Surgical History colonoscopy-hemorrhoids and extensive sigmoid diverticulosis- Khadra (03/2012 negative random colonic biopsies) 12/2006, 03/2012, 07/2014 Surgical History bilateral breast reduction a nd abdominoplasty-Dr. Aiden Granados- [place], [place] June 2011 Hospitalization History as above Goals Section No Information Health Concerns No Information MEDICAL EQUIPMENT No Information MENTAL STATUS No Information FUNCTIONAL STATUS No Information ASSESSMENTS No Information PLAN OF TREATMENT Medication Medication Name Sig Start Date Stop Date Amoxicillin-Pot Clavulanate 875-125 MG 1 tablet Orally every 12 hrs for 10 day(s) Apr, Culturelle - 1 cap Orally bid for 10 day(s) Apr, predniSONE 20 MG 1 tablet Orally BID x 3 days c apthous ulcers f or 30 day(s) Omeprazole 40 MG 1 capsule Orally AC dinner for 90 day(s) Telmisartan 20 1 tablet Orally at bedtime for 90 day(s) Dyazide 37.5-25 MG 1 tablet by mouth Once a day for 90 day(s) Zolpidem Tartrate 10 MG 1 tab Orally at bedtime prn insomnia for 30 day(s) Mar, Atorvastatin Calcium 40 MG 1 tablet Orally Once a day for 90 day (s) Vitamin D3 Super Strength 5000 unit 1 tablet Orally Once a day Carvedilol 3.125 MG 1 tab Orally bid for 90 day(s) ALPRAZolam 0.5 MG 1 tablet Orally bid prn anxiety for 30 day(s) Mar, busPIRone HCl 10 mg 1 tablet Orally Twice a day for 90 day(s) Calcium 1000 mcg 1 tablet with food Orally Once a day for 90 da y(s) metFORMIN HCl ER 750 MG 1 tab Orally AC BID for 90 day(s) Tamoxifen Citrate 20 MG 1 tablet Orally Once a day for 90 day(s) Minocycline HCl 100 MG 1 capsule dissolve in 6 oz w ater, rinse x 5 mins Orally every 12 hrs Nov, Docusate Sodium 100 MG 1 capsule as needed Orally Once a day OneTouch Verio - as directed In Vitro AC bid for 90 day(s) Desonide 0.05 % 1 application to affected ar ea Externally Twice a day x 7 days c flares for 30 day(s) Triamcinolone Acetonide 0.1 % 1 application thin layer Mouth/Throat before bedtime for 30 day(s) Mar, busPIRone HCl 10 mg 1 tablet Orally Twice a day for 90 day(s) Voltaren 1 % 4 gm Transdermal four times daily to B knees for 30 day(s) Furosemide 20 MG 1 tablet Orally every morning prn edema for 90 day(s) Loratadine 10 MG 1 tablet Orally Once a day for 90 day(s) Next Appt Details Provider Name:Corey Brown, 2021-08-02 0 2:30:00 PM, [address] [facility], , [place], [address], Insurance Providers Payer Name Payer Address Payer Phone Insured Name Patient Relati onship to Insured Coverage Start Date Coverage End Date MEDICARE BLUE PPO [facility] [id number] [address] NATALIE CASTELLANOS self
--- OUTSIDE RECORDS SUMMARY | 2021-05-30 12:50 | CCD ---
Author Author [facility] Organization [facility] Address Unknown Phone Unavailable Care Team Providers Care Elevator Service Technician Name Role Phone Corey Brown Unavailable PROBLEMS Type Condition ICD9-CM Code VXS41-AU Code Onset Dates Condition S tatus W/U Status Risk SNOMED Code Notes Problem Anxiety disorder F41.9 Active confirmed 197 918331 Problem Vitamin D deficiency E55.9 Active confirmed 26644659 Problem Peptic ulcer disease K27.9 Active confirmed 95843249 Problem Primary invasive malignant neoplasm of female breast C50.919 Active confirmed 922616991 Problem 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 Active confirmed 4096012 Problem Aphthous ulcer K12.0 Active confirmed 45183 7000 Problem Fe deficiency anemia D50.9 Active confirmed 82066941 Problem Venous insufficiency I87.2 Active confirmed 41892296 Problem Osteopenia M85.80 Active confirmed 482365018 Problem Hyperlipidemia E78.5 Active confirmed 30596 004 Problem Allergic rhinitis J30.9 Active confirmed 61 805329 Problem Insomnia G47.00 Active confirmed 101737182 Problem Sensorineural hearing loss (SNHL) of both ears H90 .3 Active confirmed 823098885 Problem THA (obstructive sleep apnea) G47.33 Active confirm ed 56646038 Problem Impingement syndrome of right shoulder M75.41 A ctive confirmed 093824491 Problem Acute cystitis with hematuria N30.01 Active confirm ed 71035955 Problem Constipation, chronic K59.09 Active confirmed 834374571 Problem Palpitations R00.2 Active confirmed 1594635 2 Problem Hypertension I10 Active confirmed 8345357 3 Problem Breast cancer screening Z12.39 Active confirmed 978118186 Problem Eczema of both external ears H60.543 Active confirm ed 61141797 Problem T2DM (type 2 diabetes mellitus) E11.9 Active confi rmed 71018037 Problem Primary osteoarthritis of both knees M17.0 Act rafy confirmed 285151716 Problem FH: colon cancer Z80.0 Active confirmed 312 981341 Problem JAYANT (generalized anxiety disorder) F41.1 Activ e confirmed 52667904 Problem Rosacea L71.9 Active confirmed 778899183 ALLERGIES Allergen (clinical drug ingredient) Drug/Non Drug Allergy do cumented on EMR Reaction Allergy Type Onset Date Status Compazine convulsion Drug Allergy Active Penicillin (For Allergies Use Only) patient unsure Drug Al lergy Active ENCOUNTERS from 1953 to 2021-04-25 Encounter Location Date Provider Diagnosis [place] [id number] [facility] [phone] [place] [address] 08 Apr, 2021 Corey Kevin Gross hematuria R31.0 IMMUNIZATIONS Vaccine Route Administration Date Status Zoster [...] Unknown Language: Question Answer Notes Languages spoken: Samoan Congregational: Question Answer Notes Congregational 21 Shinto Sexual Hx: Question Answer Notes Had sex [...] c flares for 30 day(s) Active Acidophilus 5082019871 1 cap(s) Orally daily Active Voltaren 1 [...] detected by 11/2015 mammogram/3 core biopsies at [facility] Medical History YJM-aiddai-68/2016 HST SYEDA 27 c SaO2 to 71% Surgical History colonoscopy-hemorrhoids and extensive sigmoid diverticulosis- Khadra (03/2012 negative random colonic biopsies) 12/2006, 03/2012, 07/2014 Surgical History bilateral breast reduction a nd abdominoplasty-Dr. Aiden Granados- [place], [place] June 2011 Hospitalization History as above Goals Section No Information Health Concerns No Information MEDICAL EQUIPMENT No Information MENTAL STATUS No Information FUNCTIONAL STATUS No Information ASSESSMENTS Encounter Date Diagnosis Assessment Notes Treatment Notes Treatm ent Clinical Notes Apr, Gross hematuria (ICD-10 - R31.0) PLAN OF TREATMENT Medication Medication Name Sig [...] Orally Once a day for 90 day(s) Treatment Notes Test Name Order Date Comprehensive Metabolic Profile (CMP) 2021-04-25 CBC with Differential 2021-04-25 URINE CULTURE 2021-04-25 UA URINALYSIS 2021-04-25 FERRITIN 2021-04-25 CT ABD & Pelvis w/o FOL by WIT 2021-04-25 Next Appt Details Provider Name:Corey Brown, 2021-08-02 0 2:30:00 PM, [address] [facility], , [place], [address], Insurance Providers Payer Name Payer Address Payer Phone Insured Name Patient Relati onship to Insured Coverage Start Date Coverage End Date MEDICARE BLUE PPO [address] [facility] [place] [id number] NATALIE CASTELLANOS self
--- OUTSIDE RECORDS SUMMARY | 2021-05-30 12:50 | CCD ---
Author Author [facility] Organization [facility] Address Unknown Phone Unavailable Care Team Providers Care Padded Products Finisher Name Role Phone Corey Brown Unavailable PROBLEMS Type Condition ICD9-CM Code COH37-UT Code Onset Dates Condition S tatus W/U Status Risk SNOMED Code Notes Problem Anxiety disorder F41.9 Active confirmed 197 640588 Problem Vitamin D deficiency E55.9 Active confirmed 44157211 Problem Peptic ulcer disease K27.9 Active confirmed 99893259 Problem Primary invasive malignant neoplasm of female breast C50.919 Active confirmed 291854856 Problem 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 Active confirmed 2854226 Problem Aphthous ulcer K12.0 Active confirmed 42453 7000 Problem Fe deficiency anemia D50.9 Active confirmed 26468482 Problem Venous insufficiency I87.2 Active confirmed 85020510 Problem Osteopenia M85.80 Active confirmed 313457995 Problem Hyperlipidemia E78.5 Active confirmed 60935 004 Problem Allergic rhinitis J30.9 Active confirmed 61 969822 Problem Insomnia G47.00 Active confirmed 055021368 Problem Sensorineural hearing loss (SNHL) of both ears H90 .3 Active confirmed 320792612 Problem THA (obstructive sleep apnea) G47.33 Active confirm ed 60304256 Problem Impingement syndrome of right shoulder M75.41 A ctive confirmed 328792192 Problem Acute cystitis with hematuria N30.01 Active confirm ed 10995736 Problem Constipation, chronic K59.09 Active confirmed 026355224 Problem Palpitations R00.2 Active confirmed 0916974 2 Problem Hypertension I10 Active confirmed 7112736 3 Problem Breast cancer screening Z12.39 Active confirmed 632233195 Problem Eczema of both external ears H60.543 Active confirm ed 33681600 Problem T2DM (type 2 diabetes mellitus) E11.9 Active confi rmed 61526482 Problem Primary osteoarthritis of both knees M17.0 Act rafy confirmed 831828189 Problem FH: colon cancer Z80.0 Active confirmed 312 586187 Problem JAYANT (generalized anxiety disorder) F41.1 Activ e confirmed 78196079 Problem Rosacea L71.9 Active confirmed 572363847 ALLERGIES Allergen (clinical drug ingredient) Drug/Non Drug Allergy do cumented on EMR Reaction Allergy Type Onset Date Status Compazine convulsion Drug Allergy Active Penicillin (For Allergies Use Only) patient unsure Drug Al lergurwinder Active ENCOUNTERS from 1955 to 2021-03-27 Encounter Location Date Provider Diagnosis [place] [id number] [facility] [phone] [place] [address] Mar, Corey Brwon IMMUNIZATIONS Vaccine Route Administration Date Status Zoster [...] Unknown Language: Question Answer Notes Languages spoken: [place] Sabianism: Question Answer Notes Sabianism 21 Oriental Orthodox Sexual Hx: Question Answer Notes Had sex [...] Notes Start Da te End Date Status Lancets - as directed intradermally bid DX: [...] spit BId for 90 day(s) Nov, Active Cyanocobalamin 1000 MCG 1 tablet Orally Once a day for 30 day(s) Active Carvedilol 3.125 MG 1 tab Orally bid for 90 day(s) Active Triamcinolone Acetonide 0.1 % 1 application thin layer Mouth/Throat before bedtime for 30 day(s) Mar, Active Desonide 0.05 % 1 application to affected ar ea Externally Twice a day x 7 days c flares for 30 day(s) Active Acidophilus 5507170345 1 cap(s) Orally daily Active Voltaren 1 % 4 gm Transdermal four times daily to B knees for 30 day( s) Active Vitamin D3 Super Strength 5000 unit 1 tablet Orally Once a day Active Telmisartan 20 MG 1 tablet Orally before bedtime Active Lutein 6 MG 2 capsules Orally Once a day Active Calcium 1000 mcg 1 tablet with food Orally Once a day for 90 day(s) Active Minocycline HCl 100 MG 1 capsule dissolve in 6 oz w ater, rinse x 5 mins Orally every 12 hrs Nov, Active Telmisartan 20 1 tablet Orally at bedtime for 90 day(s) Active Tamoxifen Citrate 20 MG 1 tablet Orally Once a day for 90 day(s) Active busPIRone HCl 10 mg 1 tablet Orally Twice a day for 90 day(s) Active Loratadine 10 MG 1 tablet Orally Once a day for 90 day(s) Active Zolpidem Tartrate 10 MG 1 tab Orally at bedtime prn insomnia for 30 day(s) Mar, Active Tums Ultra 1000 1000 MG 1 tablet Orally Once a day for 90 day(s) December, Active Triamterene-HCTZ 37.5-25 MG TAKE ONE CAPSULE BY MOUTH EVERY MORNING Orally Once a day for 90 day(s) Active Furosemide 20 MG 1 tablet Orally every morning prn edema for 90 day(s ) Active OneTouch Verio - as directed In Vitro AC bid for 90 day(s) Active metFORMIN HCl ER 750 MG 1 tab Orally AC BID for 90 day(s) Active Aspirin 81 81 MG 1 tablet Orally Once a day Active Benzonatate 200 MG 1 capsule Orally bid prn for 30 day(s) Aug, Active Calcium 500 MG 2 tablet with meals Orally Twice a day for 90 da y(s) Sep, Active busPIRone HCl 10 mg 1 tablet Orally Twice a day for 90 day(s) Active ALPRAZolam 0.5 MG 1 tablet Orally bid prn anxiety for 30 day(s) Mar, Active predniSONE 20 MG 1 tablet Orally BID x 3 days c apthous ulcers f or 30 day(s) Active Omeprazole 40 MG 1 capsule Orally AC dinner for 90 day(s) Active PROCEDURES No Information RESULTS No Results [...] detected by 11/2015 mammogram/3 core biopsies at [facility] Medical History [id number]-53/2016 [facility] 27 c SaO2 to 71% Surgical History colonoscopy-hemorrhoids and extensive sigmoid diverticulosis- [facility] (03/2012 negative random colonic biopsies) 12/2006, 03/2012, 07/2014 Surgical History bilateral breast reduction a nd abdominoplasty-Dr. Aiden Granados- [place], [place] June 2011 Hospitalization History as above Goals Section No Information Health Concerns No Information MEDICAL EQUIPMENT No Information MENTAL STATUS No Information FUNCTIONAL STATUS No Information ASSESSMENTS No Information PLAN OF TREATMENT Medication Medication Name Sig Start Date Stop Date predniSONE 20 MG 1 tablet Orally BID x 3 days c apthous ulcers f or 30 day(s) Omeprazole 40 MG 1 capsule Orally AC dinner for 90 day(s) ALPRAZolam 0.5 MG 1 tablet Orally bid prn anxiety for 30 day(s) Mar, busPIRone HCl 10 mg 1 tablet Orally Twice a day for 90 day(s) busPIRone HCl 10 mg 1 tablet Orally Twice a day for 90 day(s) Vitamin D3 Super Strength 5000 unit 1 tablet Orally Once a day Minocycline HCl 100 MG 1 capsule dissolve in 6 oz w ater, rinse x 5 mins Orally every 12 hrs Nov, Carvedilol 3.125 MG 1 tab Orally bid for 90 day(s) OneTouch Verio - as directed In Vitro AC bid for 90 day(s) Calcium 1000 mcg 1 tablet with food Orally Once a day for 90 da y(s) metFORMIN HCl ER 750 MG 1 tab Orally AC BID for 90 day(s) Tamoxifen Citrate 20 MG 1 tablet Orally Once a day for 90 day(s) Docusate Sodium 100 MG 1 capsule as needed Orally Once a day Telmisartan 20 1 tablet Orally at bedtime for 90 day(s) Zolpidem Tartrate 10 MG 1 tab Orally at bedtime prn insomnia for 30 day(s) Mar, Desonide 0.05 % 1 application to affected ar ea Externally Twice a day x 7 days c flares for 30 day(s) Triamcinolone Acetonide 0.1 % 1 application thin layer Mouth/Throat before bedtime for 30 day(s) Mar, Voltaren 1 % 4 gm Transdermal four times daily to B knees for 30 day(s) Furosemide 20 MG 1 tablet Orally every morning prn edema for 90 day(s) Loratadine 10 MG 1 tablet Orally Once a day for 90 day(s) Dyazide 37.5-25 MG 1 tablet by mouth Once a day for 90 day(s) Atorvastatin Calcium 40 MG 1 tablet Orally Once a day for 90 day (s) Next Appt Details Provider Name:Corey Brown, 2021-08-02 0 2:30:00 PM, [address] [facility], , [place], [phone], Insurance Providers Payer Name Payer Address Payer Phone Insured Name Patient Relati onship to Insured Coverage Start Date Coverage End Date MEDICARE BLUE PPO [phone] [address] NATALIE CASTELLANOS self
--- OUTSIDE RECORDS SUMMARY | 2021-05-30 12:50 | CCD ---
Author Author [facility] Organization [facility] Address Unknown Phone Unavailable Care Team Providers Care As400 Programmer Name Role Phone Corey Brown Unavailable PROBLEMS Type Condition ICD9-CM Code SCY78-OO Code Onset Dates Condition S tatus W/U Status Risk SNOMED Code Notes Problem Anxiety disorder F41.9 Active confirmed 197 093441 Problem Vitamin D deficiency E55.9 Active confirmed 39878180 Problem Peptic ulcer disease K27.9 Active confirmed 87182560 Problem Primary invasive malignant neoplasm of female breast C50.919 Active confirmed 410711313 Problem 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 Active confirmed 6209212 Problem Aphthous ulcer K12.0 Active confirmed 21105 7000 Problem Fe deficiency anemia D50.9 Active confirmed 37478830 Problem Venous insufficiency I87.2 Active confirmed 38676417 Problem Osteopenia M85.80 Active confirmed 086157421 Problem Hyperlipidemia E78.5 Active confirmed 30262 004 Problem Allergic rhinitis J30.9 Active confirmed 61 144151 Problem Insomnia G47.00 Active confirmed 626122629 Problem Sensorineural hearing loss (SNHL) of both ears H90 .3 Active confirmed 099275853 Problem THA (obstructive sleep apnea) G47.33 Active confirm ed 02627556 Problem Impingement syndrome of right shoulder M75.41 A ctive confirmed 443346457 Problem Acute cystitis with hematuria N30.01 Active confirm ed 28800956 Problem Constipation, chronic K59.09 Active confirmed 928254909 Problem Palpitations R00.2 Active confirmed 8998491 2 Problem Hypertension I10 Active confirmed 4606254 3 Problem Breast cancer screening Z12.39 Active confirmed 460249403 Problem Eczema of both external ears H60.543 Active confirm ed 49640529 Problem T2DM (type 2 diabetes mellitus) E11.9 Active confi rmed 24318950 Problem Primary osteoarthritis of both knees M17.0 Act rafy confirmed 336327534 Problem FH: colon cancer Z80.0 Active confirmed 312 155732 Problem JAYANT (generalized anxiety disorder) F41.1 Activ e confirmed 31141082 Problem Rosacea L71.9 Active confirmed 971481147 ALLERGIES Allergen (clinical drug ingredient) Drug/Non Drug Allergy do cumented on EMR Reaction Allergy Type Onset Date Status Compazine convulsion Drug Allergy Active Penicillin (For Allergies Use Only) patient unsure Drug Al carlin Active ENCOUNTERS from 1955 to 2021-03-27 Encounter Location Date Provider Diagnosis [address] [phone] [place] [address] Mar, Corey Brown Osteopenia M85.80 ; Breast c ancer screening Z12.39 ; Palpitations R00.2 ; JAYANT (generalized anxiety disorder) F41.1 ; Hypertension I10 ; T2DM (type 2 diabetes mellitus) E11.9 ; Constipation, chronic K59.09 ; FH: colon cancer Z80.0 ; Aphthous ulcer K12.0 ; Fe deficiency anemia D50.9 ; THA (obstructive sleep apnea) G47.33 ; Anxiety disorder F41.9 ; Primary invasive malignant neoplasm of female breast C50.919 ; Peptic ulcer disease K27.9 ; Hyperlipidemia E78.5 ; Eczema of both external ears H60.543 ; Insomnia G47.00 ; Venous insufficiency I87.2 ; Vitamin D deficiency E55.9 ; Allergic rhinitis J30.9 ; Se nsorineural hearing loss (SNHL) of both ears H90.3 ; Primary osteoarthritis of both knees M17.0 and Rosacea L71.9 IMMUNIZATIONS Vaccine Route Administration Date Status Zoster [...] Language: Question Answer Notes Languages spoken: Estonian Latter Day: Question Answer Notes Latter Day 21 Sikh Sexual Hx: Question Answer Notes Had sex [...] REASON FOR REFERRAL No Information VITAL SIGNS Weight 178 lbs Mar, Weight-kg 80.74 kg Mar, Height 64 in Mar, BMI 30.55 kg/m2 Mar, Heart Rate 96 /min Mar, Respiratory Rate 20 /min Mar, Temperature 97.8 degrees Fahrenheit Mar, Oximetry 98% Mar, Blood pressure systolic 128 mm Hg Mar, Blood pressure diastolic 70 mm Hg Mar, MEDICATIONS Medication SIG (Take, Route, Frequency, Duration) [...] c flares for 30 day(s) Active Acidophilus 5031743796 1 cap(s) Orally daily Active Voltaren 1 [...] Information RESULTS No Results REASON FOR VISIT 6 month f/u MEDICAL (GENERAL) HISTORY Type Description Date Medical [...] detected by 11/2015 mammogram/3 core biopsies at [facility] Medical History ETJ-vakzgt-72/2016 HST SYEDA 27 c SaO2 to 71% Surgical History colonoscopy-hemorrhoids and extensive sigmoid diverticulosis- Khadra (03/2012 negative random colonic biopsies) 12/2006, 03/2012, 07/2014 Surgical History bilateral breast reduction a nd abdominoplasty-Dr. Aiden Granados- [place], [place] June 2011 Hospitalization History as above Goals Section No Information Health Concerns No Information MEDICAL EQUIPMENT No Information MENTAL STATUS No Information FUNCTIONAL STATUS No Information ASSESSMENTS Encounter Date Diagnosis Assessment Notes Treatment Notes Treatm ent Clinical Notes Mar, Osteopenia (ICD-10 - M85.80) 01/2023 repeat DXA avoid po bisphosphonates given h/o PUD 02/14/21 DXA ([facility]) -0.9.-1.2/1.8 06/2018 -0.7/-0.8/1 c 1/-3/1% change cw 12/2015; therefore, CCR 08/2016 started tamox 20 12/2015 BMD -0.8/-1.0/1.1 c 1.1/1.5/2.4% change c/w 05/2014; therefore, CCR 05/2014 BMD -0.9/-0.9/0.8 c -2.2/-4.9/1.3% change c/w 02/2009 BMD 0.3/0.1/0.7 c 3.5/-0.9/-2.2% change c/w 08/2002, therefore CCR Mar, Breast cancer screening (ICD-10 - Z12.39) 02/14/21 B C2 mammogram ([facility]) Mar, Palpitations (ICD-10 - R00.2) No recurrent symptoms with resolved stress re 's hip surgery 02/2020 Fa physician had recommended TTE, Holter given symptoms as "abnormal" EKG, but patient deferred having done Mar, JAYANT (generalized anxiety disorder) (ICD-10 - F41 .1) Stable on buspir 10 BID C: push buspir (never changed to escitalo) Mar, Hypertension (ICD-10 - I10) Stable on carve 3.125 BID, Dyazide 37.5/25 qAM, telmi 09/22/20 telmi 20 1/2 BID to 20 QHS for convenience 07/17/20 19/0.6, 4.1 04/2019 4.2, 1.7, 0.6 03/05/19 + telmi 10 BID 09/22/20 EKG NSR 88, diffuse RA similar to 02/27/2011 EKG Mar, T2DM (type 2 diabetes mellitus) (ICD-10 - E11.9) Contingency: push met XR 03/15/21 6.0 (28); ergo, met XR 1000 AC din to XR 750 BID 07/17/20 6.0 (101, 23) 12/2018 6.4; therefore, improve diet and medication compliance (missing ~2x qW) 04/2018 6.2 c EB-IR 7 (112, 26); therefore, improve diet/exercise and take met XR 1000 AC dinner 11/2017 6.3 c EB-IR (97, 28); therefore, metformin 500 AC dinner to 1000 XR AC dinner 01/2013 metformin 500 BID started 07/17/20 10 12/2011 SKIP/creatinine 6 Mar, Constipation, chronic (ICD-10 - K59.09) Stable on high fiber diet and doc 100 QD prn Contingency: PG Mar, FH: colon cancer (ICD-10 - Z80.0) 03/[address] colonography>repeat colon c W (who could get through her, she felt rushed c Parker) 03/2019 incomplete colon 2 tortuous; therefore, 04/03/19 CT colonography done c " circumferential prox sigmoid thickening seondary to incomplete distension, hypertrophy or neoplasm"-Parker stated it was "hypertrophy, nothing bad" Mar, Aphthous ulcer (ICD-10 - K12.0) recurrent c stress/URI-stable on min 100 BID 5D abortive Mar, Fe deficiency anemia (ICD-10 - D50.9) B12 as per Other 03/15/21 12.7, 91, alejandra 9, 07/17/20 12.5, 91, r33/2.1 12/2018 13.3, 91, r34/1.8 04/2018 13.9, 90, CHr 35 s supplement 08/2017 14.0, 89, 14%, 55 on 65; therefore, patient held 04/2017 13.3, 21; therefore, restarted FeSO4 325 QD 01/2016 13.4, 8%, 9; therefore, FeSO4 325 QD restarted and stopped vitamin D 1000 QD again 07/2015 14.3, 27%, 12 04/2015 14.3, 19%, 16 off Fe 09/15/2014 12.4, ferritin 18, normal FC, LDH 169, DARRIUS -, therefore decreased FeSO4 325/vit C to BID and held Carafate QID 08/08/14 9.2, ferritin 3, therefore increased to FeSO4 325 TID c vit C 250 TID to improve absorption, - H pylori Ab 07/13/[address] A/P c 07/12/14 9.1, 66, plt 476K, 3%, ferritin 3, retic count 3.1 (0.-1.5), CEA <0.5, CRP <0.3, HO stool + x 2; stopped aspirin 325 qd and iburprofen 600-800 qhs (has been using qhs since ~03/2014), increased Prilosec 40 BID, addedCarafate 1 gm AC/QHS as per PUD-favor source of bleeding peptic ulcer but checked CT A/P given patient s epigastric pain/dyspepsia/GERD/vomiting/anorexia 07/08/14 9.3, MCV 70, checked as "routine" BW, patient s symptoms 12/2011 14.2, MCV 91 08/2014 TTG - Mar, THA (obstructive sleep apnea) (ICD-10 - G47.33) Encouraged compliance c CPAP [address] Nicholas Mar, Anxiety disorder (ICD-10 - F41.9) 12/2015 attempt 12/25 given mild sedation x 1H p taking and Xanax 0.25/0.5 QD prn (félix before surgery) 04/2015 Buspar 10 BID started for solely anxiety symptoms citoprolam caused emotional blunting Mar, Primary invasive malignant n eoplasm of female breast (ICD-10 - C50.919) Patient remains KARINA 01/2020 B C1 mammo follows with [facility] Oncology-LV 01/22/18 ([facility]) 08/2016 started tamoxifen 20 QD 04/2016 stopped Arimidex p 1M 2 generalized myalgia/memory loss; changed to Aromasin which has not restarted 02/26/16 started XRT-Deblasio 12/2015 s/p lumpectomy (BCS)/SLB then XRT and referred for genetic testing 11/2015 detected by L abnormal mammogram then 3 core biopsies at [facility] Mar, Peptic ulcer disease (ICD-10 - K27.9) Stable on current regimen-favor lifelong PPI given recurrent episodes a/w blood loss anemia 05/2017 increased omeprazole 40 AC dinner 3x qW to QD given daily BENITO sx no aspirin/NSAID use given recurrent PUD 12/01/14 decreased to 40 qd 07/18/14 d/w Khadra, agrees with repeat EGD/colonoscopy Mar, Hyperlipidemia (ICD-10 - E78.5) 03/15/21 39/38/283, 80, 0.6 11/2017/301, 65, 0.3 on atorva 40 12/2016 34/36/347 on atorva 40 02/2017 1.7, 1.3 06/2016 1.1 05/2014 1.23 April 2011 TSH 1.0 Mar, Eczema of both external ears (ICD-10 - H60.543) Stable on desonide 0.5 ointment BID x 7D c flares Mar, Insomnia (ICD-10 - G47.00) Stable on when necessary zol 10 qhs Mar, Venous insufficiency (ICD-10 - I87.2) Stable on fur 20 QD prn edema Caution also on Dyazide Patient defers compression stockings Mar, Vitamin D deficiency (ICD-10 - E55.9) 2 servings dietary calcium daily 07/17/20 66, 8.8, 60 11/2017 71, 8.1, 69 on D3 5K; therefore, + Tums 1000 QD 01/2016 vitamin D 74, 8.6, PTH 59 on D3 5K Mar, Allergic rhinitis (ICD-10 - J30.9) Stable on june 10 Mar, Sensorineural hearing loss (SNHL) of both ears ( ICD-10 - H90.3) mild by 04/2017 [place] audiogram Mar, Primary osteoarthritis of both knees (ICD-10 - M 17.0) Stable on diclof top B knees prn Mar, Rosacea (ICD-10 - L71.9) Stable on doxy 100 QD x 10D c flares Mar, Other 03/15/21 931 on 1000 QOD 12/2018 866 on 1000 11/2017 1391; therefore, decreased 2000 to 1000 QD no documented h/o B12 deficiency-01/2014 B12 17410/21/2013 RBC folate 743 PLAN OF TREATMENT Medication Medication Name Sig [...] Once a day for 90 day (s) Treatment Notes Assessment Notes Clinical Notes Peptic ulcer disease Stable on current r egimen-favor lifelong PPI given recurrent episodes a/w blood loss siljen73/2017 increased omeprazole 40 AC dinner 3x qW to QD given daily BENITO sxno aspirin/NSAID use given recurrent PU 12/01/14 decreased to 40 qd07/18/14 d/w Khadra, agrees with repeat EGD/colonoscopy Osteopenia 01/2023 repeat DXAavo id po bisphosphonates given h/o PUD02/14/21 DXA ([facility]) -0.9.-1.2/1.8108/2017 -0.7/-0.8/1 c 1/-3/1% change cw 12/2015; therefore, CCR08/2016 started tamox BMD -0.8/-1.0/1.1 c 1.1/1.5/2.4% change c/w 05/2014; therefore, CCR05/2014 BMD -0.9/-0.9/0.8 c -2.2/-4.9/1.3% change c/w BMD 0.3/0.1/0.7 c 3.5/-0.9/-2.2% change c/w 08/2002, therefore CCR Primary invasive malignant neoplasm of female breast Patient remains NED01/2020 B C1 mammofollows with [facility] Oncology-LV 01/22/18 ([facility])08/2016 started tamoxifen 20 QD04/2016 stopped Arimidex p 1M 2 generalized myalgia/memory loss; changed to Aromasin which has not restarted02/26/16 started XRT- Deblasio12/2015 s/p lumpectomy (BCS)/SLB then XRT and referred for genetic testing11/2015 detected by L abnormal mammogram then 3 core biopsies at [facility] Breast cancer screening 02/14/21 B C2 zara mogram ([facility]) Eczema of both external ears Stable on d esonide 0.5 ointment BID x 7D c flares Palpitations No recurrent symptom s with resolved stress re 's hip surgery02/2020 Fa physician had recommended TTE, Holter given symptoms as "abnormal" EKG, but patient deferred having done Hyperlipidemia 03/15/21 39/38/283, 8 0, 0. 23/31/301, 65, 0.3 on atorva 405 34/36/347 on atorva 407/2016 1.7, 1.311/2016 1.110/2014 1.6September 2010 TSH 1.0 JAYANT (generalized anxiety disorder) Stabl e on buspir 10 BIDC: push buspir (never changed to escitalo) Venous insufficiency Stable on fur 20 QD prn edemaCaution also on DyazidePatient defers compression stockings Hypertension Stable on carve 3.12 5 BID, Dyazide 37.5/25 qAM, telmi09/22/20 telmi 20 1/2 BID to 20 QHS for ijikwmodgdl88/30/20 19/0.6, . 4.2, 1.7, 0.67/ + telmi 10 BID09/22/20 EKG NSR 88, diffuse RA similar to 02/27/2011 EKG Insomnia Stable on when neces sheridan zol 10 qhs T2DM (type 2 diabetes mellitus) Continge ncy: push met XR03/15/21 6.0 (28); ergo, met XR 1000 AC din to XR 750 BID07/17/20 6.0 (101, 23)12/2018 6.4; therefore, improve diet and medication compliance (missing ~2x qW)04/2018 6.2 c EB-IR 7 (112, 26); therefore, improve diet/exercise and take met XR 1000 AC dinner 11/2017 6.3 c EB-IR (97, 28); therefore, metformin 500 AC dinner to 1000 XR AC dinner01/2013 metformin 500 BID kormeto46/30/20 10 12/2011 SKIP/creatinine 6 Allergic rhinitis Stable on june 10 Constipation, chronic Stable on high fib er diet and doc 100 QD prnContingency: PG Vitamin D deficiency 2 servings dietary calcium daily07/17/20 66, 8.8, 604 71, 8.1, 69 on D3 5K; therefore, + Tums 1000 QD01/2016 vitamin D 74, 8.6, PTH 59 on D3 5K Sensorineural hearing loss (SNHL) of both ears mild by 04/2017 [place] audiogram Anxiety disorder 12/2015 attempt 12/25 given mild sedation x 1H p taking and Xanax 0.25/0.5 QD prn (félix before surgery)04/2015 Buspar 10 BID started for solely anxiety symptomscitoprolam caused emotional blunting Rosacea Stable on doxy 100 Q D x 10D c flares THA (obstructive sleep apnea) Encouraged compliance c CPAP 7follows with Dr. Nicholas Primary osteoarthritis of both knees Sta ble on diclof top B knees prn FH: colon cancer 03/[address]24 patient favor s repeat CT colonography>repeat colon c W (who could get through her, she felt rushed c Parker)03/2019 incomplete colon 2 tortuous; therefore, 04/03/19 CT colonography done c "circumferential prox sigmoid thickening seondary to incomplete distension, hypertrophy or neoplasm"- Parker stated it was "hypertrophy, nothing bad" Aphthous ulcer recurrent c stress/U RI-stable on min 100 BID 5D abortive Fe deficiency anemia B12 as per Other02/16 05/08 12.7, 91, alejandra 9,07/17/20 12.5, 91, r33/2. 13.3, 91, r34/1. 13.9, 90, CHr 35 s supplement08/2017 14.0, 89, 14%, 55 on 65; therefore, patient held04/2017 13.3, 21; therefore, restarted FeSO4 325 QD01/2016 13.4, 8%, 9; therefore, FeSO4 325 QD restarted and stopped vitamin D 1000 QD again07/2015 14.3, 27%, 129 14.3, 19%, 16 off Fe09/15/2014 12.4, ferritin 18, normal FC, LDH 169, DARRIUS -, therefore decreased FeSO4 325/vit C to BID and held Carafate QID110/09/13 9.2, ferritin 3, therefore increased to FeSO4 325 TID c vit C 250 TID to improve absorption, - H pylori Ab 07/13/[address] A/P 07/12/14 9.1, 66, plt 476K, 3%, ferritin 3, retic count 3.1 (0.-1.5), CEA <0.5, CRP <0.3, HO stool + x 2; stopped aspirin 325 qd and iburprofen 600-800 qhs (has been using qhs since ~03/2014), increased Prilosec 40 BID, addedCarafate 1 gm AC/QHS as per PUD-favor source of bleeding peptic ulcer but checked CT A/P given patient s epigastric pain/dyspepsia/GERD/vomiting/anore xia07/08/14 9.3, MCV 70, checked as "routine" BW, patient s symptoms12/2011 14.2, MCV 911/2014 TTG - Future Test Test Name Order Date HEMOGLOBIN A1c [id number] INSULIN LEVEL [id number] Comprehensive Metabolic Profile (CMP) [id number] CBC with Differential [id number] FERRITIN [id number] H PYLORI SERUM QUANT IgG MARIE [id number] VITAMIN D 25-HYDROXY [id number] PTH INTACT [id number] NT-PRO BNP [id number] LIPID PANEL (CARDIAC RISK) [id number] Next Appt Details 5M, BW 1W prior Reason: Provider Name:Corey Brown, 2021-08-02 0 2:30:00 PM, [address] [facility], , [place], [address], Insurance Providers Payer Name Payer Address Payer Phone Insured Name Patient Relati onship to Insured Coverage Start Date Coverage End Date MEDICARE BLUE PPO [address] [facility] BLUE [address] [facility] [id number] NATALIE CASTELLANOS self
--- OUTSIDE RECORDS SUMMARY | 2021-05-30 12:50 | CCD | Continuity of Care Document ---
Author Author Estela VERDIN Organization Unknown Address [address] [facility], [address] [place] [address] Phone [phone] Care Team Providers Care Farm Products Shipper Name Role Phone Corey Brown M.D. AUTM [phone] Problems Active Problems Provider Date Impacted cerumen Raffy Verdin II, PA-C Onset: 05/03/2013 Chronic rhinitis Raffy Verdin II PA-C Onset: 05/03/2013 Dysfunction of eustachian tube Raffy Verdin II, PA-C Onset: 05/03/2013 Acute otitis externa Jalen Durham MD Onset: 05/03/2013 Chronic otitis externa Raffy Verdin II, PA-C Onset: 07/22/20 14 Acute non-suppurative otitis media - serous Raffy Verdin II, PA-C Onset: 07/23/2016 Chronic serous otitis media Raffy Verdin II, PA-C Onset: 02/2017 Aphthous ulcer of mouth Raffy Verdin II, PA-C Onset: 017 Common cold Raffy Verdin II, PA-C Onset: 11/27/2017 Essential hypertension Jalen Durham MD Onset: 12/29/2018 Social History Type Date Description Comments Sex Unknown Tobacco Use Start: Unknown End: Unknown Quit ETOH Use 2 Per Month Recreational Drug Use Denies Drug Use Tobacco Use Start: Unknown Non Smoker Allergies, Adverse Reactions, Alerts Active Allergies Criticality Reaction | Severity Comments Date Compazine Unable to assess criticality 08/05/2012 Penicillin Unable to assess criticality 08/05/2012 Benzocaine Unable to assess criticality 11/27/2017 Medications Active Medications SIG Qnty Indications Ordering Provide r Date Ear Dry 95% Liquid use following water exposure 30ml H61.23 Jalen Durham MD 07/21/2019 Lipitor 40mg Tablets 1 by mouth every day Unknown Dyazide 37.5-25mg Capsules 1 po qd 90caps Unknown Vitamin D3 2000Unit Chewtabs Unknown Calcium 600 600mg Tablets 2 p o qd Unknown Vitamin B [address] 1 po qd 30caps Unknown Metformin HCL 500mg Tablets daily 60tabs Unknown Lutein-Zeaxanthin 20-0.8mg Capsule s 2 tabs daily Unknown Loratadine 10mg Tablets 1 by mouth every day Unknown Aspir-[address] clayton escobedo Unknown Tamoxifen Citrate 10mg Tablets daily Unknown Carvedilol 25mg Tablets 1 by mouth twice a day Unknown Furosemide 20mg Tablets Unknown Telmisartan 20mg Tablets Unknown Immunizations Description No Information Available Vital Signs Date Vital Result Comment 04/18/2021 1:42pm Height 61.50 inches 5'1.50" Weight 179.00 lb BMI (Body Mass Index) 33.3 kg/m2 [place] Body Weight 105 lb Weight 81.194 kg BSA (Body Surface Area) 1.81 m2 10/18/2020 1:25pm Height 61.50 inches 5'1.50" Weight 165.00 lb BMI (Body Mass Index) 30.7 kg/m2 M[place]ie Body Weight 105 lb Weight 74.844 kg BSA (Body Surface Area) 1.75 m2 Results Description No Information Available Procedures Date Code Description Status 04/18/2021 63182 Remove Impacted Cerumen Complete d Medical Devices Description No Information Available Encounters Description No Information Available Assessments Date Code Description Provider 04/18/2021 H61.23 Impacted cerumen, bilateral Andriy Verdin II, PA-C Plan of Treatment 04/18/2021 - Raffy Verdin II, PA-C* H61.23 Impacted cerumen, bilateral* Comments:* both of her canals were completely impacted. she was noticing a sense of fullness bilaterally, these were cleared without difficulty and she notes hearing returned to normal. Otherwise normal exam. She is doing well. * Follow up:* 6m Functional Status Description No Information Available Mental Status Description No Information Available Referrals Description No Information Available
--- OUTSIDE RECORDS SUMMARY | 2021-05-30 12:50 | CCD ---
Author Author [facility] Organization [facility] Address Unknown Phone Unavailable Care Team Providers Care Cook Roast Name Role Phone Corey Brown Unavailable PROBLEMS Type Condition ICD9-CM Code KNE21-SP Code Onset Dates Condition S tatus W/U Status Risk SNOMED Code Notes Problem Anxiety disorder F41.9 Active confirmed 197 120798 Problem Vitamin D deficiency E55.9 Active confirmed 46707968 Problem Peptic ulcer disease K27.9 Active confirmed 67771392 Problem Primary invasive malignant neoplasm of female breast C50.919 Active confirmed 772607923 Problem 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 Active confirmed 3702477 Problem Aphthous ulcer K12.0 Active confirmed 75049 7000 Problem Fe deficiency anemia D50.9 Active confirmed 98488761 Problem Venous insufficiency I87.2 Active confirmed 47754801 Problem Osteopenia M85.80 Active confirmed 808877598 Problem Hyperlipidemia E78.5 Active confirmed 49648 004 Problem Allergic rhinitis J30.9 Active confirmed 61 153431 Problem Insomnia G47.00 Active confirmed 936930760 Problem Sensorineural hearing loss (SNHL) of both ears H90 .3 Active confirmed 148294847 Problem THA (obstructive sleep apnea) G47.33 Active confirm ed 93064816 Problem Impingement syndrome of right shoulder M75.41 A ctive confirmed 729763098 Problem Acute cystitis with hematuria N30.01 Active confirm ed 93374726 Problem Constipation, chronic K59.09 Active confirmed 559709809 Problem Palpitations R00.2 Active confirmed 0496964 2 Problem Hypertension I10 Active confirmed 5649230 3 Problem Breast cancer screening Z12.39 Active confirmed 781815591 Problem Eczema of both external ears 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.543 Active confirm ed 69695379 Problem T2DM (type 2 diabetes mellitus) E11.9 Active confi rmed 01635310 Problem Primary osteoarthritis of both knees M17.0 Act rafy confirmed 722618880 Problem FH: colon cancer Z80.0 Active confirmed 312 654864 Problem JAYANT (generalized anxiety disorder) F41.1 Activ e confirmed 37777758 Problem Rosacea L71.9 Active confirmed 836882218 ALLERGIES Allergen (clinical drug ingredient) Drug/Non Drug Allergy do cumented on EMR Reaction Allergy Type Onset Date Status Compazine convulsion Drug Allergy Active Penicillin (For Allergies Use Only) patient unsure Drug Al lergurwinder Active ENCOUNTERS from 1955 to 2021-03-27 Encounter Location Date Provider Diagnosis [place] [address] [facility] [phone] [place] [address] 10 Mar, 2021 Corey Brown IMMUNIZATIONS Vaccine Route Administration [...] Unknown Language: Question Answer Notes Languages spoken: Haitian Protestant: Question Answer Notes Protestant 21 [employer] Sexual Hx: Question Answer Notes Had sex [...] c flares for 30 day(s) Active Acidophilus 4865082370 1 cap(s) Orally daily Active Voltaren 1 [...] detected by 11/2015 mammogram/3 core biopsies at [facility] Medical History JWO-hjmtam-16/2016 HST SYEDA 27 c SaO2 to 71% Surgical History colonoscopy-hemorrhoids and extensive sigmoid diverticulosis- Khadra (03/2012 negative random colonic biopsies) 12/2006, 03/2012, 07/2014 Surgical History bilateral breast reduction a nd abdominoplasty-Dr. Aiden Granados- [place], [place] June 2011 Hospitalization History as above [...] Name:Corey Brown, 2021-08-02 0 2:30:00 PM, [address] [facility], , [place], [address], Insurance Providers Payer Name Payer Address Payer Phone Insured Name Patient Relati onship to Insured Coverage Start Date Coverage End Date MEDICARE BLUE PPO [id number] [address] NATALIE CASTELLANOS self
--- OUTSIDE RECORDS SUMMARY | 2021-05-30 12:50 | CCD ---
Author Author [facility] Organization [facility] Address Unknown Phone Unavailable Care Team Providers Care Tool Supervisor Name Role Phone Corey Brown Unavailable PROBLEMS Type Condition ICD9-CM Code [id number] Code Onset Dates Condition S tatus W/U Status Risk SNOMED Code Notes Problem Anxiety disorder F41.9 Active confirmed 197 815495 Problem Vitamin D deficiency E55.9 Active confirmed 95516654 Problem Peptic ulcer disease K27.9 Active confirmed 48673891 Problem Primary invasive malignant neoplasm of female breast C50.919 Active confirmed 382809231 Problem 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 Active confirmed 4005258 Problem Aphthous ulcer K12.0 Active confirmed 31280 7000 Problem Fe deficiency anemia D50.9 Active confirmed 12500875 Problem Venous insufficiency I87.2 Active confirmed 46966991 Problem Osteopenia M85.80 Active confirmed 373707576 Problem Hyperlipidemia E78.5 Active confirmed 38807 004 Problem Allergic rhinitis J30.9 Active confirmed 61 793357 Problem Insomnia G47.00 Active confirmed 843894917 Problem Sensorineural hearing loss (SNHL) of both ears H90 .3 Active confirmed 934233311 Problem THA (obstructive sleep apnea) G47.33 Active confirm ed 74766720 Problem Impingement syndrome of right shoulder M75.41 A ctive confirmed 474180365 Problem Acute cystitis with hematuria N30.01 Active confirm ed 30537608 Problem Constipation, chronic K59.09 Active confirmed 243437784 Problem Palpitations R00.2 Active confirmed 4713536 2 Problem Hypertension I10 Active confirmed 3950941 3 Problem Breast cancer screening Z12.39 Active confirmed 271556217 Problem Eczema of both external ears H60.543 Active confirm ed 97710860 Problem T2DM (type 2 diabetes mellitus) E11.9 Active confi rmed 21184303 Problem Primary osteoarthritis of both knees M17.0 Act rafy confirmed 843146498 Problem FH: colon cancer Z80.0 Active confirmed 312 789005 Problem JAYANT (generalized anxiety disorder) F41.1 Activ e confirmed 19632893 Problem Rosacea L71.9 Active confirmed 266244556 ALLERGIES Allergen (clinical drug ingredient) Drug/Non Drug Allergy do cumented on EMR Reaction Allergy Type Onset Date Status Compazine convulsion Drug Allergy Active Penicillin (For Allergies Use Only) patient unsure Drug Al lergy Active ENCOUNTERS from 1955 to 2021-05-11 Encounter Location Date Provider Diagnosis [place] [id number] [facility] [phone] [place] [address] Apr, Corey Brown Fe deficiency anemia D50.9 a nd FH: colon cancer Z80.0 IMMUNIZATIONS Vaccine Route Administration Date Status Zoster [...] Unknown Language: Question Answer Notes Languages spoken: [place] Denominational: Question Answer Notes Denominational 21 Yazdanism Sexual Hx: Question Answer Notes Had sex [...] smoked? > 10 years REASON FOR REFERRAL from 1955 to 2021-05-11 Reason repeat colon Diagnosis 1 Fe deficiency anemia (D50.9) Diagnosis 2 Constipation, chronic (K59.0 9) Diagnosis 3 Fe deficiency anemia (D50.9) Referral Organization [facility] Referring Provider First Name Corey Referring Provider Last Name Kevin Referring Provider Specialty Family Medicine Referred Provider Unruly Gaviria Referred Provider Specialty Gastroenterology Referral Priority Routine General Notes Conchita Gregg 05/11/2021 12:57:26 PM > REferral faxed VITAL SIGNS No information MEDICATIONS Medication SIG [...] c flares for 30 day(s) Active Acidophilus 6719929134 1 cap(s) Orally daily Active Voltaren 1 [...] Information RESULTS No Results REASON FOR VISIT blood work MEDICAL (GENERAL) HISTORY Type Description Date Medical [...] detected by 11/2015 mammogram/3 core biopsies at [facility] Medical History CGM-fcvgvq-10/2016 [facility] 27 c SaO2 to 71% Surgical History colonoscopy-hemorrhoids and extensive sigmoid diverticulosis- Khadra (03/2012 negative random colonic biopsies) 12/2006, 03/2012, 07/2014 Surgical History bilateral breast reduction a nd abdominoplasty-Dr. Aiden Granados- [place], [place] June 2011 Hospitalization History as above Goals Section No Information Health Concerns No Information MEDICAL EQUIPMENT No Information MENTAL STATUS No Information FUNCTIONAL STATUS No Information ASSESSMENTS Encounter Date Diagnosis Assessment Notes Treatment Notes Treatm ent Clinical Notes Apr, Fe deficiency anemia (ICD-10 - D50.9) Apr, FH: colon cancer (ICD-10 - Z80.0) PLAN OF TREATMENT Medication Medication Name Sig [...] Orally Once a day for 90 day(s) Referrals Referral Date Details repeat Unruly florese in Next Appt Details Provider Name:Corey Brown, 2021-08-02 0 2:30:00 PM, [address] [facility], , [place], [address], Insurance Providers Payer Name Payer Address Payer Phone Insured Name Patient Relati onship to Insured Coverage Start Date Coverage End Date MEDICARE BLUE O [address] [address] NATALIE CASTELLANOS self
--- OUTSIDE RECORDS SUMMARY | 2021-05-30 12:50 | CCD ---
Author Author [facility] Organization [facility] Address Unknown Phone Unavailable Care Team Providers Care Shop Tech Name Role Phone Corey Brown Unavailable PROBLEMS Type Condition ICD9-CM Code [id number] Code Onset Dates Condition S tatus W/U Status Risk SNOMED Code Notes Problem Anxiety disorder F41.9 Active confirmed 197 552500 Problem Vitamin D deficiency E55.9 Active confirmed 81572346 Problem Peptic ulcer disease K27.9 Active confirmed 71678336 Problem Primary invasive malignant neoplasm of female breast C50.919 Active confirmed 227111904 Problem 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 Active confirmed 8315437 Problem Aphthous ulcer K12.0 Active confirmed 56783 7000 Problem Fe deficiency anemia D50.9 Active confirmed 17285219 Problem Venous insufficiency I87.2 Active confirmed 86016557 Problem Osteopenia M85.80 Active confirmed 160487444 Problem Hyperlipidemia E78.5 Active confirmed 01031 004 Problem Allergic rhinitis J30.9 Active confirmed 61 103219 Problem Insomnia G47.00 Active confirmed 629808118 Problem Sensorineural hearing loss (SNHL) of both ears H90 .3 Active confirmed 360176553 Problem THA (obstructive sleep apnea) G47.33 Active confirm ed 25972616 Problem Impingement syndrome of right shoulder M75.41 A ctive confirmed 371199265 Problem Acute cystitis with hematuria N30.01 Active confirm ed 44743736 Problem Constipation, chronic K59.09 Active confirmed 605150997 Problem Palpitations R00.2 Active confirmed 6150078 2 Problem Hypertension I10 Active confirmed 7235826 3 Problem Breast cancer screening Z12.39 Active confirmed 225951614 Problem Eczema of both external ears H60.543 Active confirm ed 74272058 Problem T2DM (type 2 diabetes mellitus) E11.9 Active confi rmed 01989964 Problem Primary osteoarthritis of both knees M17.0 Act rafy confirmed 363129712 Problem FH: colon cancer Z80.0 Active confirmed 312 886091 Problem JAYANT (generalized anxiety disorder) F41.1 Activ e confirmed 34939120 Problem Rosacea L71.9 Active confirmed 103596097 ALLERGIES Allergen (clinical drug ingredient) Drug/Non Drug Allergy do cumented on EMR Reaction Allergy Type Onset Date Status Compazine convulsion Drug Allergy Active Penicillin (For Allergies Use Only) patient unsure Drug Al lergy Active ENCOUNTERS from 1955 to 2021-05-23 Encounter Location Date Provider Diagnosis [place] [id number] [facility] [phone] [place] [address] 04 May, 2021 Corey Brown T2DM (type 2 diabetes [facility]) E11.9 IMMUNIZATIONS Vaccine Route Administration Date Status Zoster [...] Unknown Language: Question Answer Notes Languages spoken: [place] Islander Yarsani: Question Answer Notes Yarsani 21 Jehovah'S Witness Sexual Hx: Question Answer Notes Had sex [...] c flares for 30 day(s) Active Acidophilus 9564850118 1 cap(s) Orally daily Active Voltaren 1 [...] mins Orally every 12 hrs Nov, Active Triamterene-HCTZ 37.5-25 MG TAKE ONE CAPSULE BY MOUTH EVERY MORNING Orally Once a day for 90 day(s) Active Tamoxifen Citrate 20 MG 1 tablet Orally Once a day for 90 day(s) Active Telmisartan 20 1 tablet Orally at bedtime for 90 day(s) Active Cyanocobalamin 1000 MCG 1 tablet Orally Once a day for 30 day(s) Active Telmisartan 20 MG 1 tablet Orally before bedtime for 90 day(s) Active Vitamin D3 Super [...] Information RESULTS No Results REASON FOR VISIT metformin MEDICAL (GENERAL) HISTORY Type Description Date Medical [...] detected by 11/2015 mammogram/3 core biopsies at [facility] Medical History QDH-poqfdm-29/2016 H[facility] SYED[facility] 27 c SaO2 to 71% Surgical History colonoscopy-hemorrhoids and extensive sigmoid diverticulosis- Khadra (03/2012 negative random colonic biopsies) 12/2006, 03/2012, 07/2014 Surgical History bilateral breast reduction a nd abdominoplasty-Dr. Aiden Granados- [place], [place] June 2011 Hospitalization History as above Goals Section No Information Health Concerns No Information MEDICAL EQUIPMENT No Information MENTAL STATUS No Information FUNCTIONAL STATUS No Information ASSESSMENTS Encounter Date Diagnosis Assessment Notes Treatment Notes Treatm ent Clinical Notes May, T2DM (type 2 diabetes mellitus) (ICD-10 - E11.9) PLAN OF TREATMENT Medication Medication Name Sig Start Date Stop Date Atorvastatin Calcium 40 MG 1 tablet Orally Once a day for 90 day (s) Furosemide 20 MG 1 tablet Orally every morning prn edema for 90 day(s) Carvedilol 3.125 MG 1 tab Orally bid for 90 day(s) Dyazide 37.5-25 MG 1 tablet by mouth Once a day for 90 day(s) Vitamin D3 Super Strength 5000 unit 1 tablet Orally Once a day OneTouch Verio - as directed In Vitro AC bid for 90 day(s) Calcium 1000 mcg 1 tablet with food Orally Once a day for 90 da y(s) Voltaren 1 % 4 gm Transdermal four times daily to B knees for 30 day(s) Docusate Sodium 100 MG 1 capsule as needed Orally Once a day Triamcinolone Acetonide 0.1 % 1 application thin layer Mouth/Throat before bedtime for 30 day(s) Mar, Amoxicillin-Pot Clavulanate 875-125 MG 1 tablet Orally [...] bedtime prn insomnia for 30 day(s) Mar, ALPRAZolam 0.5 MG 1 tablet Orally bid prn anxiety for 30 day(s) Mar, busPIRone HCl 10 mg 1 tablet Orally Twice a day for 90 day(s) metFORMIN HCl ER 750 MG 1 tab Orally AC BID for 90 day(s) Tamoxifen Citrate 20 MG 1 tablet Orally Once a day for 90 day(s) Minocycline HCl 100 MG 1 capsule dissolve in 6 oz w ater, rinse x 5 mins Orally every 12 hrs Nov, Desonide 0.05 % 1 application to affected ar ea Externally Twice a day x 7 days c flares for 30 day(s) busPIRone HCl 10 mg 1 tablet Orally Twice a day for 90 day(s) Loratadine 10 MG 1 tablet Orally Once a day for 90 day(s) Telmisartan 20 MG 1 tablet Orally before bedtime for 90 day(s) Next Appt Details Provider Name:Corey Brown, 2021-08-02 0 2:30:00 PM, [address] [facility], , [place], [address], Insurance Providers Payer Name Payer Address Payer Phone Insured Name Patient Relati onship to Insured Coverage Start Date Coverage End Date MEDICARE BLUE PPO [address] [facility] [address] [place] [id number] NATALIE CASTELLANOS self
--- OUTSIDE RECORDS SUMMARY | 2021-05-30 12:50 | CCD | Continuity of Care Document ---
Author Author Estela GAVIRIA M.D. Organization Unknown Address [address] [place] [address] Phone [phone] Care Team Providers Care Public Service Director Name Role Phone Corey Brown MD [facility] [phone] Problems Active Problems Provider Date Diverticulitis Unruly Gaviria M.D. Onset: 05/22/20 21 Anemia Unruly Gaviria M.D. Onset: 07/21/20 14 Heartburn Unruly Gaviria M.D. Onset: 03/19/20 12 Hemorrhage of rectum and anus Unruly Gaviria M.D. Onset : 03/19/2012 Essential hypertension Unruly Gaviria M.D. Onset: 03/23 Social History Type Date Description Comments Sex Unknown ETOH Use Currently consumes alcohol Tobacco Use Start: Unknown Patient was a smoker, current st atus is unknown Allergies and adverse reactions Active Allergies Criticality Reaction | Severity Comments Date Compazine Unable to assess criticality 01/01/2012 Medications Active Medications SIG Qnty Indications Ordering Provide r Date Suprep Bowel Prep Kit 17.5-3.13-1.6GM/177ML Solution use as directed 354ml Unruly Gaviria M.D. 05/22/[address] 1 Cap By Mouth Twice A Day Before Breakfast And Dinner 180caps Unruly Gaviria M.D. 04/08/2012 Biotin 5000mcg Tablets Unknown Magnesium 300mg Capsules Unknown Loratadine 10mg Capsules Unknown Vitamin C 500mg Capsules Unknown Acidophilus Capsules Unknown Lutein 6mg Capsules Unknown Buspirone HCL 10mg Tablets Corey Brown MD Metformin HCL ER 500mg Tablets ER 24HR Corey Brown MD Carvedilol 3.125mg Tablets Corey Brown MD Atorvastatin Calcium 40mg Tablets Corey Brown MD Triamcinolone Acetonide Dental Paste 0.1% Paste Corey Brown MD Telmisartan 20mg Tablets Corey Brown MD Tamoxifen Citrate 20mg Tablets Corey Brown MD Ambien 10mg Tablets Unknown Lasix 40mg Tablets by mouth every day 30tabs Unknown Aspirin Low Dose 81mg Tablets Unknown Vitamin B-12 1000mcg Tablets Sub Unknown Vitamin D3 Super Strength 2000Unit Tablets Unknown Immunizations Description No Information Available Vital Signs Date Vital Result Comment 05/22/2021 1:36pm Height 61 inches 5'1" Weight 179.00 lb BP Systolic 121 mmHg BP Diastolic 83 mmHg Heart Rate 85 /min BMI (Body Mass Index) 33.8 kg/m2 Weight 81.194 kg Body Temperature 97.3 F 07/21/2014 3:30pm Height 61.5 inches 5'1.50" Weight 191.00 lb BP Systolic 132 mmHg BP Diastolic 90 mmHg Heart Rate 95 /min BMI (Body Mass Index) 35.5 kg/m2 Weight 86.638 kg Results Description No Information Available Procedures Date Code Description Status 05/22/2021 03522 Office/Outpatient New Low [facility] 30 -44 Minutes Completed Medical Devices Description No Information Available Encounters Type Date Location Provider Dx Diagnosis Office Visit 05/22/2021 1:15p Main Office Unruly Gaviria M.D. D 64.9 Anemia, unspecified Assessments Date Code Description Provider 05/22/2021 D64.9 Anemia Unruly cortez M.D. Plan of Treatment Future Appointment(s):* 05/28/2021 6:45 am - Pat-Remih at Main Office * 05/30/2021 12:00 pm - Unruly Gaviria M.D. at Main Office 05/22/2021 - Unruly Gaviria M.D.* D64.9 Anemia* Comments:* 66 yo wf who is referred for evaluation s/p diverticulitis. Last colonoscopy was incomplete in 2019, by [facility]. No weight loss. She had a gastric ulcer 2 yrs ago. Colonoscopy in 2011 was normal. She is here for anemia evaluation. Plan:1. C olonoscopy to cecum2. Informed consent. Functional Status Description No Information Available Mental Status Description No Information Available Referrals Description No Information Available
--- OUTSIDE RECORDS SUMMARY | 2021-05-30 12:50 | CCD ---
Author Author [facility] Organization [facility] Address Unknown Phone Unavailable Care Team Providers Care Mat Worker Name Role Phone Corey Brown Unavailable PROBLEMS Type Condition ICD9-CM Code WBS40-BU Code Onset Dates Condition S tatus W/U Status Risk SNOMED Code Notes Problem Vitamin D deficiency E55.9 Active confirmed 85161233 Problem Primary invasive malignant neoplasm of female breast C50.919 Active confirmed 493462526 Problem Anxiety disorder F41.9 Active confirmed 197 435113 Problem Aphthous ulcer K12.0 Active confirmed 94226 7000 Problem Sensorineural hearing loss (SNHL) of both ears H90 .3 Active confirmed 269456783 Problem Eczema of both external ears H60.543 Active confirm ed 60356155 Problem Peptic ulcer disease K27.9 Active confirmed 64136069 Problem Hyperlipidemia E78.5 Active confirmed 59523 004 Problem T2DM (type 2 diabetes mellitus) E11.9 Active confi rmed 56409478 Problem Insomnia G47.00 Active confirmed 832150654 Problem Osteopenia M85.80 Active confirmed 285736433 Problem THA (obstructive sleep apnea) G47.33 Active confirm ed 73148779 Problem Allergic rhinitis J30.9 Active confirmed 61 976311 Problem 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 Active confirmed 7269752 Problem Impingement syndrome of right shoulder M75.41 A ctive confirmed 432584235 Problem Acute cystitis with hematuria N30.01 Active confirm ed 24570777 Problem Rosacea L71.9 Active confirmed 134425566 Problem Venous insufficiency I87.2 Active confirmed 18193971 Problem Palpitations R00.2 Active confirmed 5756352 2 Problem Hypertension I10 Active confirmed 3820950 3 Problem Fe deficiency anemia D50.9 Active confirmed 99715811 Problem Constipation, chronic K59.09 Active confirmed 156873634 Problem Primary osteoarthritis of both knees M17.0 Act rafy confirmed 884323260 Problem FH: colon cancer Z80.0 Active confirmed 312 473796 Problem JAYANT (generalized anxiety disorder) F41.1 Activ e confirmed 62654716 ALLERGIES Allergen (clinical drug ingredient) Drug/Non Drug Allergy do cumented on EMR Reaction Allergy Type Onset Date Status Compazine convulsion Drug Allergy Active Penicillin (For Allergies Use Only) patient unsure Drug Al lergy Active ENCOUNTERS from 1955 to 2021-03-05 Encounter Location Date Provider Diagnosis [place] [id number] [facility] [phone] [place] [address] Feb, Corey Brown Myalgia M79.10 IMMUNIZATIONS Vaccine Route Administration Date Status Zoster [...] Unknown Language: Question Answer Notes Languages spoken: Cypriot Restorationist: Question Answer Notes Restorationist 21 Judaism Sexual Hx: Question Answer Notes Had sex [...] Notes Start Da te End Date Status Acidophilus 1085064593 1 cap(s) Orally daily Active busPIRone HCl 10 mg 1 tablet Orally Twice a day for 90 day(s) Active Vitamin D3 Super Strength 5000 unit 1 tablet Orally Once a day Active Desonide 0.05 % 1 application to affected ar ea Externally Twice a day x 7 days c flares for 30 day(s) Active Calcium 500 MG 2 tablet with meals Orally Twice a day for 90 da y(s) Sep, Active Tamoxifen Citrate 20 MG 1 tablet Orally Once a day for 90 day(s) Active Loratadine 10 MG 1 tablet Orally Once a day for 90 day(s) Active Loratadine 10 MG 1 tablet Orally Once a day for 90 Active Voltaren 1 % 4 gm Transdermal four times daily to B knees for 30 day( s) Active Furosemide 20 MG 1 tablet Orally every morning prn edema for 90 day(s ) Active Telmisartan 20 MG TAKE 1/2 TABLET BY MOUTH TWICE DAILY for 90 Active Carvedilol 3.125 MG 1 tab Orally bid for 90 Active Benzonatate 200 MG 1 capsule Orally bid prn for 30 day(s) Aug, Active OneTouch Verio - as directed In Vitro AC bid for 90 day(s) Active Docusate Sodium 100 MG 1 capsule as needed Orally Once a day Active Zolpidem Tartrate 10 MG 1 tab Orally at bedtime prn insomnia for 30 day(s) Active Furosemide 20 MG TAKE 1 TABLET BY MOUTH EVERY MORNING FOR EDEMA for 3 0 Active Omeprazole 40 MG 1 capsule Orally AC dinner for 90 day(s) Active Lutein 6 MG 2 capsules Orally Once a day Active Aspirin 81 81 MG 1 tablet Orally Once a day Active Dyazide 37.5-25 MG 1 tablet by mouth Once a day for 90 day(s) Active Chlorhexidine Gluconate 0.12 % 15 ml Mouth/Throat swis h and spit BId for 90 day(s) Nov, Active ALPRAZolam 0.5 MG 1 tablet Orally bid prn anxiety for 30 day(s) Active Atorvastatin Calcium 40 MG 1 tablet Orally Once a day for 90 day(s) Active metFORMIN HCl ER 500 MG 2 tablets Orally AC dinner for 90 day(s) Active Minocycline HCl 100 MG 1 capsule dissolve in 6 oz w ater, rinse x 5 mins Orally every 12 hrs for 5 day(s) Nov, Active Triamterene-HCTZ 37.5-25 MG TAKE ONE CAPSULE BY MOUTH EVERY MORNING Orally Once a day for 90 day(s) Active Triamcinolone Acetonide 0.1 % 1 application thin layer Mouth/Throat before bedtime for 30 day(s) Mar, Active Vitamin B-12 1000 MCG 1 tablet Orally Once a day Active Lancets - as directed intradermally bid DX: E11.8 for 90 day(s) December, Active Carvedilol 3.125 MG 1 tab Orally bid for 90 day(s) Active Tums Ultra 1000 1000 MG 1 tablet Orally Once a day for 90 day(s) December, Active predniSONE 20 MG 1 tablet Orally BID x 3 days c apthous ulcers f or 30 day(s) Active Telmisartan 20 1 tablet Orally at bedtime for 90 day(s) Active busPIRone HCl 10 mg 1 tablet Orally Twice a day for 90 day(s) Active PROCEDURES No Information RESULTS No Results REASON FOR VISIT blood work MEDICAL (GENERAL) HISTORY Type Description Date Medical History hypertension-05/2014 low risk RST-[facility] l Medical History hyperlipidemia 2B Medical History T2DM NID Medical History vitamin D deficiency Medical History insomnia Medical History GERD/hiatal hernia, gatric u lcer, acute/chronic esophagitis by biopsy by 03/2012 EGD-Khadra/06/2014 UGI bleed c 2 blood loss anemia 2 probable gastric ulcer 2 ibuprofen/aspirin-07/2014 EGD small HH, moderate gastritis , - antral biopsy/03/2019 EGD antral polypoid -benign bx-[facility] Medical History chronic MDD/JAYANT Medical History leukocytosis, thrombocytosis-mild Medical History cervical/lumbar [...] [facility] Medical History JLB-ftudau-39/2016 HST SYEDA 27 c SaO2 to 71% Surgical History colonoscopy-hemorrhoids and extensive sigmoid diverticulosis- Khadra (03/2012 negative random colonic biopsies) 12/2006, 03/2012, 07/2014 Surgical History bilateral breast reduction a nd abdominoplasty-Dr. Aiden Granados- [place], [place] June 2011 Hospitalization History as above Goals Section No Information Health Concerns No Information MEDICAL EQUIPMENT No Information MENTAL STATUS No Information FUNCTIONAL STATUS No Information ASSESSMENTS Encounter Date Diagnosis Assessment Notes Treatment Notes Treatm ent Clinical Notes Feb, Myalgia (ICD-10 - M79.10) PLAN OF TREATMENT Medication Medication Name Sig Start Date Stop Date Telmisartan 20 1 tablet Orally at bedtime for 90 day(s) busPIRone HCl 10 mg 1 tablet Orally Twice a day for 90 day(s) Carvedilol 3.125 MG 1 tab Orally bid for 90 day(s) predniSONE 20 MG 1 tablet Orally BID x 3 days c apthous ulcers f or 30 day(s) Furosemide 20 MG 1 tablet Orally every morning prn edema for 90 day(s) busPIRone HCl 10 mg 1 tablet Orally Twice a day for 90 day(s) Desonide 0.05 % 1 application to affected ar ea Externally Twice a day x 7 days c flares for 30 day(s) Calcium 500 MG 2 tablet with meals Orally Twice a day f or 90 day(s) Sep, Benzonatate 200 MG 1 capsule Orally bid prn for 30 day(s) Aug Docusate Sodium 100 MG 1 capsule as needed Orally Once a day Omeprazole 40 MG 1 capsule Orally AC dinner for 90 day(s) ALPRAZolam 0.5 MG 1 tablet Orally bid prn anxiety for 30 day(s) Tamoxifen Citrate 20 MG 1 tablet Orally Once a day for 90 day(s) Dyazide 37.5-25 MG 1 tablet by mouth Once a day for 90 day(s) Atorvastatin Calcium 40 MG 1 tablet Orally Once a day for 90 day (s) Loratadine 10 MG 1 tablet Orally Once a day for 90 day(s) Voltaren 1 % 4 gm Transdermal four times daily to B knees for 30 day(s) Vitamin D3 Super Strength 5000 unit 1 tablet Orally Once a day metFORMIN HCl ER 500 MG 2 tablets Orally AC dinner for 90 day(s) OneTouch Verio - as directed In Vitro AC bid for 90 day(s) Zolpidem Tartrate 10 MG 1 tab Orally at bedtime prn insomnia for 30 day(s) Minocycline HCl 100 MG 1 capsule dissolve in 6 oz w ater, rinse x 5 mins Orally every 12 hrs for 5 day(s) Nov, Chlorhexidine Gluconate 0.12 % 15 ml Mouth/Throat swis h and spit BId for 90 day(s) Nov, Treatment Notes Test Name Order Date VITAMIN B12 LEVEL 2021-03-05 C REACTIVE PROTEIN QUANTITATIV (At [facility]) 2021-03-05 CPK CREATINE PHOSPHOKINASE 2021-03-05 FERRITIN 2021-03-05 ERYTHROCYTE SEDIMENTATION RATE 2021-03-05 HEMOGLOBIN A1c 2021-03-05 LIPID PANEL (CARDIAC RISK) 2021-03-05 CBC with Differential 2021-03-05 INSULIN LEVEL 2021-03-05 Next Appt Details Provider Name:Corey Brown, 2021-03-26 0 4:00:00 PM, [address] [facility], , [place], [address], Insurance Providers Payer Name Payer Address Payer Phone Insured Name Patient Relati onship to Insured Coverage Start Date Coverage End Date MEDICARE BLUE PPO 306 [employer] [address] [address] NATALIE CASTELLANOS self
--- OUTSIDE RECORDS SUMMARY | 2021-05-30 12:50 | CCD | Continuity of Care Document ---
Author Author Estela VERDIN Organization Unknown Address [address] [facility], [address] [place] [address] Phone [phone] Care Team Providers Care Narrow Fabric Calenderer Name Role Phone Corey Brown M.D. AUTM [phone] Problems Active Problems Provider Date Impacted cerumen [...] lb BMI (Body Mass Index) 33.3 kg/m2 [place] Body Weight 105 lb Weight 81.194 kg BSA (Body Surface Area) 1.81 m2 10/18/2020 1:25pm Height 61.50 inches 5'1.50" Weight 165.00 lb BMI (Body Mass Index) 30.7 kg/m2 [place] Body Weight 105 lb Weight 74.844 kg BSA (Body Surface Area) 1.75 m2 Results Description No Information Available Procedures Date Code Description Status 10/18/2020 97092 Remove Impacted Cerumen Complete d Medical Devices Description No Information Available Encounters Description No Information Available Assessments Date Code Description Provider 04/18/2021 H61.23 Impacted cerumen, bilateral Andriy as Velvet FOLEY PA-C 10/18/2020 H61.23 Impacted cerumen, bilateral Andriy as Velvet FOLEY PA-C Plan of Treatment 04/18/2021 - Raffy Verdin II, PA-C* H61.23 Impacted cerumen, bilateral* Follow up:* 6m Functional Status Description No Information Available Mental Status Description No Information Available Referrals Description No Information Available
--- OUTSIDE RECORDS SUMMARY | 2021-05-30 12:50 | CCD ---
Author Author [facility] Organization [facility] Address Unknown Phone Unavailable Care Team Providers Care Bead Trimmer Name Role Phone Corey Brown Unavailable PROBLEMS Type Condition ICD9-CM Code [id number] Code Onset Dates Condition S tatus W/U Status Risk SNOMED Code Notes Problem Anxiety disorder F41.9 Active confirmed 197 091315 Problem Vitamin D deficiency E55.9 Active confirmed 72045493 Problem Peptic ulcer disease K27.9 Active confirmed 91500903 Problem Primary invasive malignant neoplasm of female breast C50.919 Active confirmed 031692676 Problem 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 Active confirmed 0175004 Problem Aphthous ulcer K12.0 Active confirmed 38147 7000 Problem Fe deficiency anemia D50.9 Active confirmed 55271313 Problem Venous insufficiency I87.2 Active confirmed 68747915 Problem Osteopenia M85.80 Active confirmed 369557317 Problem Hyperlipidemia E78.5 Active confirmed 05991 004 Problem Allergic rhinitis J30.9 Active confirmed 61 379247 Problem Insomnia G47.00 Active confirmed 882498004 Problem Sensorineural hearing loss (SNHL) of both ears H90 .3 Active confirmed 660677822 Problem THA (obstructive sleep apnea) G47.33 Active confirm ed 94503526 Problem Impingement syndrome of right shoulder M75.41 A ctive confirmed 091958901 Problem Acute cystitis with hematuria N30.01 Active confirm ed 43091538 Problem Constipation, chronic K59.09 Active confirmed 344276816 Problem Palpitations R00.2 Active confirmed 3889280 2 Problem Hypertension I10 Active confirmed 0867845 3 Problem Breast cancer screening Z12.39 Active confirmed 770318874 Problem Eczema of both external ears H60.543 Active confirm ed 35090083 Problem T2DM (type 2 diabetes mellitus) E11.9 Active confi rmed 48748963 Problem Primary osteoarthritis of both knees M17.0 Act rafy confirmed 617515210 Problem FH: colon cancer Z80.0 Active confirmed 312 685533 Problem JAYANT (generalized anxiety disorder) F41.1 Activ e confirmed 78294031 Problem Rosacea L71.9 Active confirmed 256557200 ALLERGIES Allergen (clinical drug ingredient) Drug/Non Drug Allergy do cumented on EMR Reaction Allergy Type Onset Date Status Compazine convulsion Drug Allergy Active Penicillin (For Allergies Use Only) patient unsure Drug Al lergy Active ENCOUNTERS from 1955 to 2021-04-25 Encounter Location Date Provider Diagnosis [place] [id number] [facility] [phone] [place] [address] 07 Apr, 2021 Corey Kevin Gross hematuria R31.0 [...] Question Answer Notes Languages spoken: [place] Islander Zoroastrianism: Question Answer Notes Zoroastrianism 21 Episcopal Sexual Hx: Question Answer Notes Had sex [...] c flares for 30 day(s) Active Acidophilus 8813751995 1 cap(s) Orally daily Active Voltaren 1 [...] Information RESULTS No Results REASON FOR VISIT urine culture MEDICAL (GENERAL) HISTORY Type Description Date Medical [...] detected by 11/2015 mammogram/[address] [facility] Medical History [id number] [facility] SYEDA 27 c SaO2 to 71% Surgical History colonoscopy-hemorrhoids and extensive sigmoid diverticulosis- Khadra (03/2012 negative random colonic biopsies) 12/2006, 03/2012, 07/2014 Surgical History bilateral breast reduction a nd abdominoplasty-Dr. 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 [employer] [id number] [id number] NAATLIE CASTELLANOS self
--- OUTSIDE RECORDS SUMMARY | 2021-05-30 12:50 | CCD ---
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 Unavailable [phone] Gordon IGLESIAS, Clarke Unavailable [phone] Yuridia IGLESIAS, FACS, Edward Shore Unavailable [phone] Jeremiah IGLESIAS, Marta Unavailable [phone] Kevin IGLESIAS, Corey PP [phone] Reason for Referral No Reason for Referral Recorded Problems Includes: Active, inactive, and resolved Problems All Visits Onset Date - Time Resolved Date - Time Provider Co ndition Status Posterior Vitreous Detachment Left Eye 04/20/2020 - 12:00AM Edward Berg MD, FACS Active Conjunctivitis Acute Atopic 03/17/2018 - 12:00AM 04/20/2020 - 8: 54AM Edward Shi MD, FACS Resolved Episcleritis Nodular 03/09/2018 - 12:00AM 04/20/2020 - 8:54AM Samy Berg MD, DEMI Resolved Epidermal Inclusion Cyst 03/09/2018 - 12:00AM Edward Shi MD, FACS Inactive Taking Medication For Diabetes Long-term Use of Oral H ypoglycemics 12/15/2017 - 12:00AM Edward Shi MD, FACS Active History of Nicotine Dependence 12/15/2017 - 12:00AM Edward Shi MD, FACS Active Retinopathy Hypertensive 12/15/2017 - 12:00AM Edward Shi MD, FACS Active Diabetes Mellitus Type 2 - Uncomplicated, Controlled 02/12/2016 - 12:00AM Edward Shi MD, FACS Active Essential Hypertension 02/12/2016 - 12:00AM Edward Farooq MD, FACS Active Retinopathy Hypertensive Both Eyes 02/12/2016 - 12:00AM Edward Shi MD, FACS Inactive Cataract Senile Nuclear 02/12/2016 - 12:00AM Edward Shi MD, FACS Active Dry Eye Syndrome 02/12/2016 - 12:00AM Edward lai MD, FACS Active Vitreous Disorders Degeneration 02/12/2016 - 12:00AM Edward Shi MD, FACS Active Plan of Treatment Future Appointments Date Time Location Provider 1 Year Follow-Up 06/26/2021 12:20PM Edward Shi MD [facility] Edward Shi MD, FACS Assessments Includes: Assessments for all patient encounters Findings Encounter Date Assessment of long-term use of oral hypoglycemics 1 Ye ar Follow-Up with Edward Shi MD, FACS 07/19/2020 Dry eye syndrome 1 Year Follow-Up with Edward campos MD, FACS 07/19/2020 Nuclear senile cataract 1 Year Follow-Up with Edward Arellano MD, FACS 07/19/2020 Type 2 diabetes mellitus - uncomplicated, controlled 1 Year Follow-Up with Edward Shi MD, FACS 07/19/2020 Posterior vitreous detachment in the left eye TRIAGE N ON URGENT with Edward Shi MD, FACS 04/20/2020 Assessment of long-term use of oral hypoglycemics 1 Ye ar Follow-Up with Edward Shi MD, FACS 12/17/2018 Essential hypertension 1 Year Follow-Up with Edward Berg MD, FACS 12/17/2018 Hypertensive retinopathy of both eyes 1 Year Follow-Up with Edward Shi MD, FACS 12/17/2018 Nuclear senile cataract 1 Year Follow-Up with Edward Arellano MD, FACS 12/17/2018 Type 2 diabetes mellitus - uncomplicated, controlled 1 Year Follow-Up with Edward Shi MD, FACS 12/17/2018 Acute atopic conjunctivitis 1 Week Follow-Up with Arash estes DO 03/17/2018 Nodular episcleritis 1 Week Follow-Up with Arash Gaviria DO 03/17/2018 Epidermal inclusion cyst TRIAGE NON URGENT with Edward Avendaño MD, FACS 03/09/2018 Nodular episcleritis TRIAGE NON URGENT with Edward lai MD, FACS 03/09/2018 Essential hypertension 9 Month Follow-Up with Edward Arellano MD, FACS 12/15/2017 History of nicotine dependence 9 Month Follow-Up with Edward Shi MD, FACS 12/15/2017 Hypertensive retinopathy 9 Month Follow-Up with Edward Avendaño MD, FACS 12/15/2017 Long-term use of oral hypoglycemics 9 Month Follow-Up with Edward Shi MD, FACS 12/15/2017 Nuclear senile cataract 9 Month Follow-Up with Edward Jeffrey MD, FACS 12/15/2017 Type 2 diabetes mellitus - uncomplicated, controlled 9 Month Follow-Up with Edward Shi MD, FACS 12/15/2017 Essential hypertension 1 Year Follow-Up with Edward Berg MD, FACS 02/24/2017 History of nicotine dependence 1 Year Follow-Up with Dayana Shi MD, FACS 02/24/2017 Hypertensive retinopathy of both eyes 1 Year Follow-Up with Edward Shi MD, FACS 02/24/2017 Long-term use of oral hypoglycemics 1 Year Follow-Up w jennifer Shi MD, FACS 02/24/2017 Nuclear senile cataract 1 Year Follow-Up with Edward Arellano MD, FACS 02/24/2017 Type 2 diabetes mellitus - uncomplicated, controlled 1 Year Follow-Up with Edward Shi MD, FACS 02/24/2017 Arcus senilis was observed both eyes NEW PATIENT WITH REFERRAL with Edward Shi MD, FACS 02/12/2016 Dry eye syndrome NEW PATIENT WITH REFERRAL with Edward Shi MD, FACS 02/12/2016 Essential hypertension NEW PATIENT WITH REFERRAL [facility] Edward Shi MD, FACS 02/12/2016 History of nicotine dependence NEW PATIENT WITH REFERR AL with Edward Berg MD, FACS 02/12/2016 Hypertensive retinopathy of both eyes NEW PATIENT WITH REFERRAL with Edward Shi MD, FACS 02/12/2016 Nuclear senile cataract NEW PATIENT WITH REFERRAL [facility] Edward Shi MD, FACS 02/12/2016 Type 2 diabetes mellitus - uncomplicated, controlled N EW PATIENT WITH REFERRAL with Edward Shi MD, FACS 02/12/2016 Vitreous degeneration NEW PATIENT WITH REFERRAL wi Edward Shi MD, FACS 02/12/2016 Age-related macular degeneration OCT RETINA Technical Component with Edward Sih MD, FACS 07/20/2014 Instructions Instructions not supported for this document typeNo Instructions Recorded Medical Equipment - Implanted Devices Includes: Current and historical DevicesNo Medical Equipment Recorded Medications Includes: Current and historical Medications Current Medications (continue as prescribed) Olopatadine HCl 0.2% Ophthalmic Solution 12/17/2018 Provider: Edward Shi MD, FACS Diagnosis: Acute atopic conjunc tivitis, left eye One drop twice a day in both eyes HM Loratadine 10MG Oral Tablet 02/24/2017 Provider: Diagnosis: Tamoxifen Citrate 20MG Oral Tablet 02/24/2017 Provi glenn: Diagnosis: Biotin 5000MCG Oral Tablet 02/24/2017 Provider: Diagnosis: Lutein 10MG Oral Tablet 02/24/2017 Provider: Diagnosis: Magnesium 500MG Oral Tablet 02/24/2017 Provider: Diagnosis: BusPIRone HCl 10 MG Tablet 02/12/2016 Provider: Diagnosis: MetFORMIN HCl 500 MG Tablet 02/12/2016 Provider: Diagnosis: CVS D3 5000 UNIT Capsule 02/12/2016 Provider: Diagnosis: Aspirin 81 MG Tablet Delayed Release 02/12/2016 Pro vider: Diagnosis: Ambien 5 MG Tablet 02/12/2016 Provider: Diagnosis: Atenolol 25 MG Tablet 02/12/2016 Provider: Diagnosis: Lipitor 40 MG Tablet 02/12/2016 Provider: Diagnosis: Triamterene-HCTZ 37.5-25 MG Capsule 02/12/2016 Prov ider: Diagnosis: Past Medications on file Olopatadine HCl 0.2% Ophthalmic Solution 03/18/2018 - 2019 Provider: Arash Gaviria DO Diagnosis: Other chronic allerg ic conjunctivitis One drop twice a day in both eyes Pazeo 0.7% Ophthalmic Solution 03/17/2018 - 04/20/2020 Provi glenn: Arash Gaviria DO Diagnosis: Acute atopic conjunc tivitis, left eye One drop in each eye in the morning Pred Forte 1% Ophthalmic Suspension 03/17/2018 - 04/20/2020 Provider: Arash Khadra DO Diagnosis: Nodular episcleritis , left eye one drop to left eye four times a day Pred Forte 1% Ophthalmic Suspension 03/09/2018 - 03/17/2018 Provider: Edward Shi MD, FACS Diagnosis: Nodular episcleritis , left eye one drop to left eye 6 times a day Medications Administered Includes: Administered Medications in patient's chartNo Administered Medications Recorded Vital Signs Includes: Vital Signs from 05/09/2020 through 05/09/2021No Vital Signs Recorded For Specified Dates Results Includes: Results from 05/09/2020 through 05/09/2021No Results Recorded For Specified Dates History of Present Illness History of Present Illness not supported for this document typeNo History of Present Illness Recorded Social History Description Last Updated Not using drugs 07/19/2020 Smoking status : Former smoker 07/19/2020 No tobacco use 07/19/2020 Alcohol 04/20/2020 Alcohol use once a month 04/20/2020 Previous smoking history for 20 years 04/20/2020 Procedures and Surgical History Includes: Procedures from 05/09/2020 through 05/09/2021 Procedures Code Diagnosis Performing Provider Service Location Service Date Intermediate Eye Exam Established Patient [address] Type 2 diabetes mellitus without complications, manager long term care (current) use of oral hypoglycemic drugs, Dry eye syndrome of bilateral lacrimal glands, Age-related nuclear cataract, bilateral Edward Shi MD, FACS Edward Shi MD [facility] 07/19/2020 Surgical History Last Updated Surgical / procedural history Breast bi opsy 2015, Lumpectomy of right breast with radiation 04/20/2020 Medical History Includes: Medical History in patient's chart Description Last Updated History of diabetes mellitus Type 2 Dx: 2012 A1C: unsure with Dr. Brown in June FBS: does not check 07/19/2020 History of the retina was abnormal 12/17/2018 0 Currently wearing eyeglasses 04/20/2020 History of hyperlipidemia 04/20/2020 History of hypertension 04/20/2020 No recent change in medical history 04/20/2020 Reported medical history Right breast cancer 2016 10/2019 Family History Includes: Family History in patient's chart Description Last Updated Fraternal history of diabetes mellitus 07/19/2020 Fraternal history of hypertension 07/19/2020 Maternal history of family history of cancer 0 Maternal history of hypertension 07/19/2020 Paternal history of diabetes mellitus 07/19/2020 Paternal history of family history of cancer 0 Paternal history of hypertension 07/19/2020 Review of Systems Review of Systems not supported for this document typeNo Review of Systems Recorded Mental Status Mental Status not supported for this document type Description Oriented to time, place, and person Functional Status Functional Status not supported for this document typeNo Functional Status Recorded Physical Exam Physical Exam not supported for this document typeNo Physical Exam Recorded Immunizations Includes: Immunizations in patient's chartNo Immunizations Recorded Allergies Includes: Active, inactive, and resolved Allergies Substance Type Reaction Onset Date - Time Resolved Date - Ti me Status Penicillin G Benzathine Allergy 02/12/2016 - 12:00AM Active GNP Pain Relief/Benzocaine Allergy 12/17/2018 - 12:00AM Active Compazene Allergy 02/12/2016 - 12:00AM Acti ve Encounters Includes: Encounters from 05/09/2020 through 05/09/2021 Encounter Provider Location Date Check-In Time Check-Out Time D iagnosis 1 Year Follow-Up Edward Shi MD, FACS Edward Anne [facility] 07/19/2020 2:10PM 3:47PM Diabetes Mellitus Ty pe 2 - Uncomplicated, Controlled, Assessment of Taking Medication For Diabetes Long-term Use of Oral Hypoglycemics, Dry Eye Syndrome, Cataract Senile Nuclear Insurance Includes: Active Insurance Policies Plan Name Member ID Group # Subscriber Relationship Effective Da michael 1 - [employer]/BS [id number] Estela Castellanos Self Advance Directives Includes: Current Advance DirectivesNo Advance Directives Recorded Health Concerns Includes: Active Health ConcernsNo Active Health Concerns Recorded Goals Includes: Active GoalsNo Active Goals Recorded Interventions Includes: Interventions for active GoalsNo Interventions Recorded Evaluations & Outcomes Includes: Evaluations & Outcomes for active GoalsNo Outcomes Recorded
--- OUTSIDE RECORDS SUMMARY | 2021-05-30 12:51 | CCD ---
Author Author [facility] Organization [facility] Address Unknown Phone Unavailable Care Team Providers Care Career Placement Services Counselor Name Role Phone Ramiro Gaviria MD Unavailable Unavailable Ramiro Gaviria MD Unavailable Unavailable Ramiro Gaviria MD Unavailable Unavailable Ramiro Gaviria MD Unavailable Unavailable Ramiro Gaviria MD Unavailable Unavailable Ramiro Gaviria MD Unavailable Unavailable Ramiro Gaviria MD Unavailable Unavailable Ramiro Gaviria MD Unavailable Unavailable Ramiro Gaviria MD Unavailable Unavailable Ramiro Gaviria MD Unavailable Unavailable Ramiro Gaviria MD Unavailable Unavailable Ramiro Gaviria MD Unavailable Unavailable Ramiro Gaviria MD Unavailable Unavailable Ramiro Gaviria MD Unavailable Unavailable Ramiro Gaviria MD Unavailable Unavailable Ramiro Gaviria MD Unavailable Unavailable Ramiro Gaviria MD Unavailable Unavailable Ramiro Gaviria MD Unavailable Unavailable Ramiro Gaviria MD Unavailable Unavailable Ramiro Gaviria MD Unavailable Unavailable Ramiro Gaviria MD Unavailable Unavailable Ramiro Gaviria MD Unavailable Unavailable Ramiro Gaviria MD Unavailable Unavailable Ramiro Gaviria MD Unavailable Unavailable Ramiro Gaviria MD Unavailable Unavailable Ramiro Gaviria MD Unavailable Unavailable Ramiro Gaviria MD Unavailable Unavailable Ramiro Gaviria MD Unavailable Unavailable Khadra, S Unruly MD Unavailable Unavailable Khadra, S Unruly MD Unavailable Unavailable Khadra, S Unruly MD Unavailable Unavailable Khadra, S Unruly MD Unavailable Unavailable Khadra, S Unruly MD Unavailable Unavailable Khadra, S Unruly MD Unavailable Unavailable Khadra, S Unruly MD Unavailable Unavailable Khadra, S Unruly MD Unavailable Unavailable Khadra, S Unruly MD Unavailable Unavailable Khadra, S Unruly MD Unavailable Unavailable Khadra, S Unruly MD Unavailable Unavailable Khadra, S Unruly MD Unavailable Unavailable Khadra, S Unruly MD Unavailable Unavailable Khadra, S Unruly MD Unavailable Unavailable Khadra, S Unruly MD Unavailable Unavailable Khadra, S Unruly MD Unavailable Unavailable Khadra, S Unruly MD Unavailable Unavailable Khadra, S Unruly MD Unavailable Unavailable Khadra, S Unruly MD Unavailable Unavailable Khadra, S Unruly MD Unavailable Unavailable Khadra, S Unruly MD Unavailable Unavailable Khadra, S Unruly MD Unavailable Unavailable KORT, C BRIE MD Unavailable Unavailable KORT, C BRIE MD Unavailable Unavailable KORT, C BRIE MD Unavailable Unavailable KORT, C BRIE MD Unavailable Unavailable KORT, C BRIE MD Unavailable Unavailable KORT, C BRIE MD Unavailable Unavailable KORT, C BRIE MD Unavailable Unavailable KORT, C BRIE MD Unavailable Unavailable KORT, C BRIE MD Unavailable Unavailable KORT, C BRIE MD Unavailable Unavailable KORT, C BRIE MD Unavailable Unavailable KORT, C BRIE MD Unavailable Unavailable KORT, C BRIE MD Unavailable Unavailable KORT, C BRIE MD Unavailable Unavailable KORT, C BRIE MD Unavailable Unavailable KORT, C RBIE MD Unavailable Unavailable KORT, C BRIE MD Unavailable Unavailable KORT, C BRIE MD Unavailable Unavailable KORT, C BRIE MD Unavailable Unavailable KORT, C BRIE MD Unavailable Unavailable KORT, C BRIE MD Unavailable Unavailable KORT, C BRIE MD Unavailable Unavailable KORT, C BRIE MD Unavailable Unavailable KORT, C BRIE MD Unavailable Unavailable KORT, C BRIE MD Unavailable Unavailable KORT, C BRIE MD Unavailable Unavailable KORT, C BRIE MD Unavailable Unavailable KORT, C BRIE MD Unavailable Unavailable KORT, C BRIE MD Unavailable Unavailable KORT, C BRIE MD Unavailable Unavailable KORT, C BRIE MD Unavailable Unavailable KORT, C BRIE MD Unavailable Unavailable KORT, C BRIE MD Unavailable Unavailable KORT, C BRIE MD Unavailable Unavailable KORT, C BRIE MD Unavailable Unavailable KORT, C BRIE MD Unavailable Unavailable KORT, C BRIE MD Unavailable Unavailable KORT, C BRIE MD Unavailable Unavailable KORT, C BRIE MD Unavailable Unavailable KORT, C BRIE MD Unavailable Unavailable KORT, C BRIE MD Unavailable Unavailable KORT, C BRIE MD Unavailable Unavailable KORT, C BRIE MD Unavailable Unavailable KORT, C BRIE MD Unavailable Unavailable KORT, C BRIE MD Unavailable Unavailable KORT, C BRIE MD Unavailable Unavailable KORT, C BRIE MD Unavailable Unavailable KORT, C BRIE MD Unavailable Unavailable KORT, C BRIE MD Unavailable Unavailable KORT, C BRIE MD Unavailable Unavailable KORT, C BRIE MD Unavailable Unavailable KORT, C BRIE MD Unavailable Unavailable KORT, C BRIE MD Unavailable Unavailable KORT, C BRIE MD Unavailable Unavailable KORT, C BRIE MD Unavailable Unavailable KORT, C BRIE MD Unavailable Unavailable KORT, C BRIE MD Unavailable Unavailable KORT, C BRIE MD Unavailable Unavailable KORT, C BRIE MD Unavailable Unavailable KORT, C BRIE MD Unavailable Unavailable KORT, C BRIE MD Unavailable Unavailable KORT, C BRIE MD Unavailable Unavailable KORT, C BRIE MD Unavailable Unavailable KORT, C BRIE MD Unavailable Unavailable KORT, C BRIE MD Unavailable Unavailable KORT, C BRIE MD Unavailable Unavailable KORT, C BRIE MD Unavailable Unavailable KORT, C BRIE MD Unavailable Unavailable KORT, C BRIE MD Unavailable Unavailable KORT, C BRIE MD Unavailable Unavailable KORT, C BRIE MD Unavailable Unavailable KORT, C BRIE MD Unavailable Unavailable KORT, C BRIE MD Unavailable Unavailable KORT, C BRIE MD Unavailable Unavailable KORT, C BRIE MD Unavailable Unavailable KORT, C BRIE MD Unavailable Unavailable KORT, C BRIE MD Unavailable Unavailable KORT, C BRIE MD Unavailable Unavailable KORT, C BRIE MD Unavailable Unavailable KORT, C BRIE MD Unavailable Unavailable KORT, C BRIE MD Unavailable Unavailable KORT, C BRIE MD Unavailable Unavailable KORT, C BRIE MD Unavailable Unavailable KORT, C BRIE MD Unavailable Unavailable KORT, C BRIE MD Unavailable Unavailable KORT, C BRIE MD Unavailable Unavailable KORT, C BRIE MD Unavailable Unavailable KORT, C BRIE MD Unavailable Unavailable KORT, C BRIE MD Unavailable Unavailable PAULIE C BRIE IGLESIAS Unavailable Unavailable KORT, C BRIE IGLESIAS Unavailable Unavailable KORT, C BRIE IGLESIAS Unavailable Unavailable KORT, C BRIE MD Unavailable Unavailable KORT, C BRIE MD Unavailable Unavailable KORT, C BRIE MD Unavailable Unavailable KORT, C BRIE Unavailable Unavailable MARLON, J FAITH MD Unavailable Unavailable MARLON, J FAITH MD Unavailable Unavailable MARLON, J FAITH MD Unavailable Unavailable MARLON, J FAITH MD Unavailable Unavailable MARLON, J FAITH MD Unavailable Unavailable MARLON, J FAITH MD Unavailable Unavailable MARLON, J FAITH MD Unavailable Unavailable MARLON, J FAITH MD Unavailable Unavailable MARLON, J FAITH MD Unavailable Unavailable MAROLN, J FAITH MD Unavailable Unavailable MARLON, J FAITH MD Unavailable Unavailable MARLON, J FAITH MD Unavailable Unavailable MARLON, J FAITH MD Unavailable Unavailable MARLON, J FAITH MD Unavailable Unavailable MARLON, J FAITH MD Unavailable Unavailable AMRLON, J FAITH MD Unavailable Unavailable MARLON, J FAITH MD Unavailable Unavailable MARLON, J FAITH MD Unavailable Unavailable MARLON, J FAITH MD Unavailable Unavailable MARLON, J FAITH MD Unavailable Unavailable MARLON, J FAITH MD Unavailable Unavailable MARLON, J FAITH MD Unavailable Unavailable MARLON, J FAITH MD Unavailable Unavailable MARLON, J FAITH MD Unavailable Unavailable MARLON, J FAITH MD Unavailable Unavailable MARLON, J FAITH MD Unavailable Unavailable MARLON, J FAITH MD Unavailable Unavailable MARLON, J FAITH MD Unavailable Unavailable MARLON, J FAITH MD Unavailable Unavailable MARLON, J FAITH MD Unavailable Unavailable MARLON, J FAITH MD Unavailable Unavailable MARLON, J FAITH MD Unavailable Unavailable MARLON, J FAITH MD Unavailable Unavailable MARLON, J FAITH MD Unavailable Unavailable MARLON, J FAITH MD Unavailable Unavailable MARLON, J FAITH MD Unavailable Unavailable MARLON, J FAITH MD Unavailable Unavailable MARLON, J FAITH MD Unavailable Unavailable MARLON, J FAITH MD Unavailable Unavailable MARLON, J FAITH MD Unavailable Unavailable MARLON, J FAITH MD Unavailable Unavailable MARLON, J FAITH MD Unavailable Unavailable MARLON, J FAITH MD Unavailable Unavailable MARLON, J FAITH MD Unavailable Unavailable MARLON, J FAITH MD Unavailable Unavailable MARLON, J FAITH MD Unavailable Unavailable MARLON, J FAITH MD Unavailable Unavailable MARLON, J FAITH MD Unavailable Unavailable MARLON, J FAITH MD Unavailable Unavailable MARLON, J FAITH MD Unavailable Unavailable MARLON, J FAITH MD Unavailable Unavailable MARLON, J FAITH MD Unavailable Unavailable MARLON, J FAITH MD Unavailable Unavailable MARLON, J FAITH MD Unavailable Unavailable MARLON, J FAITH MD Unavailable Unavailable MARLON, J FAITH MD Unavailable Unavailable MARLON, J FAITH MD Unavailable Unavailable MARLON, J FAITH MD Unavailable Unavailable MARLON, J FAITH MD Unavailable Unavailable MARLON, J FAITH MD Unavailable Unavailable MARLON, J FAITH MD Unavailable Unavailable MARLON, J FAITH MD Unavailable Unavailable MARLON, J FAITH MD Unavailable Unavailable MARLON, J FAITH MD Unavailable Unavailable MARLON, J FAITH MD Unavailable Unavailable MARLON, J FAITH MD Unavailable Unavailable MARLON, J FAITH MD Unavailable Unavailable MARLON, J FAITH MD Unavailable Unavailable MARLON, J FAITH MD Unavailable Unavailable MARLON, J FATIH MD Unavailable Unavailable MARLON, J FAITH MD Unavailable Unavailable MARLON, J FAITH MD Unavailable Unavailable MARLON, J FAIHT MD Unavailable Unavailable MARLON, J FAITH MD Unavailable Unavailable MARLON, J FAITH MD Unavailable Unavailable MARLON, J FAITH MD Unavailable Unavailable MARLON, J FAITH MD Unavailable Unavailable MARLON, J FAITH MD Unavailable Unavailable MARLON, J FAITH MD Unavailable Unavailable MARLON, J FAITH MD Unavailable Unavailable MARLON, J FAITH MD Unavailable Unavailable MARLON, J FAITH MD Unavailable Unavailable Harris Berg, Татьяна Leon MD, FACS Unavailable Unavailable Harris Berg, Татьяна Leon MD, FACS Unavailable Unavailable Harris Berg, Татьяна Leon MD, FACS Unavailable Unavailable Harris Berg, Татьяна Leon MD, FACS Unavailable Unavailable Harris Berg, Татьяна Leon MD, FACS Unavailable Unavailable Harris Berg, Татьяна Leon MD, FACS Unavailable Unavailable Harris Berg, Татьяна Leon MD, FACS Unavailable Unavailable Harris Berg, Татьяна Leon MD, FACS Unavailable Unavailable Harris Berg, Татьяна Leon MD, FACS Unavailable Unavailable Harris Berg, Татьяна Leon MD, FACS Unavailable Unavailable Harris Berg, Татьяна Leon MD, FACS Unavailable Unavailable Harris Berg, Татьяна Leon MD, FACS Unavailable Unavailable Harris Berg, Татьяна Leon MD, FACS Unavailable Unavailable Harris Berg, Татьяна Leon MD, FACS Unavailable Unavailable Harris Berg, Татьяна Leon MD, FACS Unavailable Unavailable Harris Berg, Татьяна Leon MD, FACS Unavailable Unavailable Harris Berg, Татьяна Leon MD, FACS Unavailable Unavailable Harris Berg, Татьяна Leon MD, FACS Unavailable Unavailable Harris Berg, Татьяна Leon MD, FACS Unavailable Unavailable Harris Berg, Татьяна Leon MD, FACS Unavailable Unavailable Harris Berg, Татьяна Leon MD, FACS Unavailable Unavailable Harris Berg, Татьяна Leon MD, FACS Unavailable Unavailable Harris Berg, Татьяна Leon MD, FACS Unavailable Unavailable Harris Berg, Татьяна Leon MD, FACS Unavailable Unavailable Harris Begr, Татьяна Leon MD, FACS Unavailable Unavailable Harris Berg, Татьяна Leon MD, FACS Unavailable Unavailable Harris Berg, Татьяна Leon MD, FACS Unavailable Unavailable Harris Berg, Татьяна Leon MD, FACS Unavailable Unavailable Harris Berg, Татьяна Leon MD, FACS Unavailable Unavailable Harris Berg, Татьяна Leon MD, FACS Unavailable Unavailable Harris Berg, Татьяна Leon MD, FACS Unavailable Unavailable Harris Berg, Татьяна Leon MD, FACS Unavailable Unavailable Harris Berg, Татьяна Leon MD, FACS Unavailable Unavailable Harris Berg, Татьяна Leon MD, FACS Unavailable Unavailable Harris Berg, Татьяна Leon MD, FACS Unavailable Unavailable Harris Berg, Татьяна Leon MD, FACS Unavailable Unavailable Harris Berg, Татьяна Leon MD, FACS Unavailable Unavailable Harris Berg, Татьяна Leon MD, FACS Unavailable Unavailable Harris Berg, Татьяна Leon MD, FACS Unavailable Unavailable Re-disclosure Warning The records that you are about to access may contain information from federally-assisted alcohol or drug abuse programs. If such information is present, then the following federally mandated warning applies: This information has been disclosed to you from records protected by federal confidentiality rules (42 CFR part 2). The federal rules prohibit you from making any further disclosure of this information unless further disclosure is expressly permitted by the written consent of the person to whom it pertains or as otherwise permitted by 42 CFR part 2. A general authorization for the release of medical or other information is NOT sufficient for this purpose. The Federal rules restrict any use of the information to criminally investigate or prosecute any alcohol or drug abuse patient.The records that you are about to access may contain highly sensitive health information, the redisclosure of which is protected by Article 27-F of the [facility] Public Health law. If you continue you may have access to information: Regarding HIV / AIDS; Provided by facilities licensed or operated by the [facility] Office of Mental Health; or Provided by the [facility] Office for People With Developmental Disabilities. If such information is present, then the following [facility] mandated warning applies: This information has been disclosed to you from confidential records which are protected by state law. State law prohibits you from making any further disclosure of this information without the specific written consent of the person to whom it pertains, or as otherwise permitted by law. Any unauthorized further disclosure in violation of state law may result in a fine or assisted sentence or both. A general authorization for the release of medical or other information is NOT sufficient authorization for further disc losure. Family History Family Member Name Family Member Gender Family Member Status Date o f Status Description Data Source(s) Unknown Unknown Problem [facility] ([facility], ) Encounters Encounter Providers Location Date Indications Data Source(s ) Outpatient Attender: Unruly Gaviria MD Main Office 05/22/2021 01:15:00 PM EDT MEDENT ([facility]) Unknown [address] [facility] [address] 05/21/2021 12:00:00 AM EDT eCW1 ([facility]) Unknown [address] [facility] [address] 05/10/2021 12:00:00 AM EDT eCW1 ([facility]) Unknown [address] [facility] [id number] 04/25/2021 12:00:00 AM EDT eCW1 ([facility]) Unknown [address] [facility] [id number] 04/25/2021 12:00:00 AM EDT eCW1 ([facility]) Unknown [address] [facility] [address] 04/24/2021 12:00:00 AM EDT eCW1 ([facility]) Outpatient Attender: FAITH JONESeferrer: BRIE Anne _[id number] 04/04/2021 11:31:59 AM EDT [facility] Unknown [address] [facility] [address] 03/27/2021 12:00:00 AM EDT eCW1 ([facility]) Unknown [address] [facility] [address] 03/26/2021 12:00:00 AM EDT eCW1 ([facility]) Outpatient [address] [facility] [address] 03/26/2021 12:00:00 AM EDT [facility]1 ([facility]) [place] [address] [facility] [place] [address] 03/05/2021 12:00:00 AM EDT [facility]CW1 ([facility]) Unknown [address] [facility] [place] [address] 11/24/2020 12:00:00 AM EDT eCW1 ([facility]) Unknown [address] [facility] [place] [address] 11/24/2020 12:00:00 AM EDT [facility]CW1 ([facility]) Unknown [address] [facility] [place] [address] 09/25/2020 12:00:00 AM EST eCW1 ([facility]) Unknown [address] [facility] [place] [address] 09/25/2020 12:00:00 AM EST eCW1 ([facility]) Outpatient [address] [facility] [place] [address] 09/22/2020 12:00:00 AM EST eCW1 ([facility]) Outpatient Attender: FAITH JONESeferrer: BRIE Anne [id number] 09/08/2020 06:14:13 AM EST [facility] [place] Unknown [address] [facility] [place] [address] 09/05/2020 12:00:00 AM EST eCW1 ([facility]) Unknown [address] [facility] [place] [address] 07/31/2020 12:00:00 AM EST eCW1 ([facility]) Unknown [address] [facility] [place] [address] 07/28/2020 12:00:00 AM EST eCW1 ([facility]) Unknown [address] [facility] [place] [address] 07/27/2020 12:00:00 AM EST eCW1 ([facility]) <td ID="encounterTypeDescriptionID0">1 Y ear Follow-Up</td><td>Edward Berg MD, FACS</td><td>Edward Shi MD [facility]</td><td>07/19/2020</td><td>2:10PM</td><td>3:47PM</td><td><content ID="encounterDiagnosisID0-0">Diabetes Mellitus Type 2 - Uncomplicated, Controlled</content>, <content ID="encounterDiagnosisID0-1">Assessment of Taking Medication For Diabetes Long-term Use of Oral Hypoglycemics</content>, <content ID="encounterDiagnosisID0-2">Dry Eye Syndrome</content>, <content ID="encounterDiagnosisID0-3">Cataract Senile Nuclear</content></td>Outpatient Attender: Edward Berg MD, FACS Edward Shi MD [facility] 07/19/2020 02:10:0 0 PM EST - 07/19/2020 03:47:00 PM EST Assessment of Taking Medication For Diab etes Long-term Use of Oral HypoglycemicsCataract Senile NuclearDry Eye SyndromeDiabetes Mellitus Type 2 - Uncomplicated, Controlled HENRIETTE (Edward Berg MD [facility]) Assessment of Taking Medication For Diab etes Long-term Use of Oral Hypoglycemics Cataract Senile Nuclear Dry Eye Syndrome Diabetes Mellitus Type 2 - Uncomplicated , Controlled Unknown [address] [facility] [place] [address] 06/29/2020 12:00:00 AM EST eCW1 ([facility]) [place] [address] [facility] [place] [address] 06/20/2020 12:00:00 AM EST eCW1 ([facility]) Outpatient<td ID="encounterTypeDescripti onID0">TRIAGE NON URGENT</td><td>Edward Shi MD, FACS</td><td>Edward Shi MD [facility]</td><td>04/20/2020</td><td>8:45AM</td><td>9:27AM</td><td><content ID="encounterDiagnosisID0-0">Posterior Vitreous Detachment Left Eye</content></td> Attender: Edward Berg MD, FACS [facility] 04/20/2020 08:45:00 AM EDT - 04/20/2020 09:27:00 AM EDT Posterior Vitreous Detachment Left Eye MACIEL (Edward Berg MD [facility]) Posterior Vitreous Detachment Left Eye Immunizations Vaccine Date Status Description Data Source(s) COVID-19 dose #2 given elsewhere Unspecified 10/05/2020 10:0 9:00 AM EST completed eCW1 ([facility]) COVID-19 dose #2 given elsewhere Unspecified 10/05/2020 10:0 9:00 AM EST completed eCW1 ([facility]) COVID-19 dose #2 given elsewhere Unspecified 10/05/2020 10:0 9:00 AM EST completed eCW1 ([facility]) COVID-19 dose #2 given elsewhere Unspecified 10/05/2020 10:0 9:00 AM EST completed eCW1 ([facility]) COVID-19 dose #2 given elsewhere Unspecified 10/05/2020 10:0 9:00 AM EST completed eCW1 ([facility]) COVID-19 dose #2 given elsewhere Unspecified 10/05/2020 10:0 9:00 AM EST completed eCW1 ([facility]) COVID-19 dose #2 given elsewhere Unspecified 10/05/2020 10:0 9:00 AM EST completed eCW1 ([facility]) COVID-19 dose #2 given elsewhere Unspecified 10/05/2020 10:0 9:00 AM EST completed eCW1 ([facility]) COVID-19 dose #2 given elsewhere Unspecified 10/05/2020 10:0 9:00 AM EST completed eCW1 ([facility]) COVID-19 dose #2 given elsewhere Unspecified 10/05/2020 10:0 9:00 AM EST completed eCW1 ([facility]) COVID-19 VACCINE Pfizer 10/05/2020 12:00:00 AM EST completed [employer] Vaccine Series Complete: YESThis Data wa s Submitted to [facility] Via [employer]. COVID-19 dose #1 given elsewhere Unspecified 09/14/2020 02:5 9:00 PM EST completed eCW1 ([facility]) COVID-19 dose #1 given elsewhere Unspecified 09/14/2020 02:5 9:00 PM EST completed eCW1 ([facility]) COVID-19 dose #1 given elsewhere Unspecified 09/14/2020 02:5 9:00 PM EST completed eCW1 ([facility]) COVID-19 dose #1 given elsewhere Unspecified 09/14/2020 02:5 9:00 PM EST completed eCW1 ([facility]) COVID-19 dose #1 given elsewhere Unspecified 09/14/2020 02:5 9:00 PM EST completed eCW1 ([facility]) COVID-19 dose #1 given elsewhere Unspecified 09/14/2020 02:5 9:00 PM EST completed eCW1 ([facility]) COVID-19 dose #1 given elsewhere Unspecified 09/14/2020 02:5 9:00 PM EST completed eCW1 ([facility]) COVID-19 dose #1 given elsewhere Unspecified 09/14/2020 02:5 9:00 PM EST completed eCW1 ([facility]) COVID-19 dose #1 given elsewhere Unspecified 09/14/2020 02:5 9:00 PM EST completed eCW1 ([facility]) COVID-19 dose #1 given elsewhere Unspecified 09/14/2020 02:5 9:00 PM EST completed eCW1 ([facility]) COVID-19(given elsewhere) Unspecified 09/14/2020 02:59:00 PM EST co mpleted eCW1 ([facility]) COVID-19(given elsewhere) Unspecified 09/14/2020 02:59:00 PM EST co mpleted eCW1 ([facility]) COVID-19(given elsewhere) Unspecified 09/14/2020 02:59:00 PM EST co mpleted eCW1 ([facility]) COVID-19 dose #1 given elsewhere Unspecified 09/14/2020 02:5 9:00 PM EST completed eCW1 ([facility]) COVID-19 VACCINE Pfizer 09/14/2020 12:00:00 AM EST completed [employer] Vaccine Series Complete: NOThis Data was Submitted to [facility] Via [employer]. Medications Medication Brand Name Start Date Product Form Dose Route Admi nistrative Instructions Pharmacy Instructions Status Indications Reaction Description Data Source(s) Suprep Bowel Prep Kit Suprep Bowel Prep Kit 05/22/2021 12:00:00 AM EDT active MEDENT ([facility]) Amoxicillin 875 MG / Clavulanate 125 MG Oral Tablet Amoxicillin-Pot Clavulanate 875-125 MG Amoxicillin-Pot Clavulanate 875-125 MG 04/25/2021 12:00:00 AM ED T 1.0 {tablet} active Amoxicillin-Pot Cla vulanate 875-125 MG eCW1 ([facility]) Amoxicillin 875 MG / Clavulanate 125 MG Oral Tablet Amoxicillin-Pot Clavulanate 875-125 MG Amoxicillin-Pot Clavulanate 875-125 MG 04/25/2021 12:00:00 AM ED T 1.0 {tablet} active Amoxicillin-Pot Cla vulanate 875-125 MG eCW1 ([facility]) Inulin 200 MG / Lactobacillus rhamnosus GG [id number] UNT Oral Capsule Culturelle - [facility] - 04/25/2021 12:00:00 AM EDT active Culturelle - eCW1 ([facility]) Amoxicillin 875 MG / Clavulanate 125 MG Oral Tablet Amoxicillin-Pot Clavulanate 875-125 MG Amoxicillin-Pot Clavulanate 875-125 MG 04/25/2021 12:00:00 AM ED T 1.0 {tablet} active Amoxicillin-Pot Cla vulanate 875-125 MG eCW1 ([facility]) Amoxicillin 875 MG / Clavulanate 125 MG Oral Tablet Amoxicillin-Pot Clavulanate 875-125 MG Amoxicillin-Pot Clavulanate 875-125 MG 04/25/2021 12:00:00 AM ED T 1.0 {tablet} active Amoxicillin-Pot Cla vulanate 875-125 MG eCW1 ([facility]) Inulin 200 MG / Lactobacillus rhamnosus GG [id number] UNT Oral Capsule Culturelle - Culturelle - 04/25/2021 12:00:00 AM EDT active Culturelle - eCW1 ([facility]) Inulin 200 MG / Lactobacillus rhamnosus GG [id number] UNT Oral Capsule Culturelle - Culturelle - 04/25/2021 12:00:00 AM EDT active Culturelle - eCW1 ([facility]) Inulin 200 MG / Lactobacillus rhamnosus GG [id number] UNT Oral Capsule Culturelle - Culturelle - 04/25/2021 12:00:00 AM EDT active Culturelle - eCW1 ([facility]) Alprazolam 0.5 MG Oral Tablet ALPRAZolam 0.5 MG ALPRAZolam 0 .5 MG 03/26/2021 12:00:00 AM EDT 1.0 {tablet} active AL PRAZolam 0.5 MG eCW1 ([facility]) Alprazolam 0.5 MG Oral Tablet ALPRAZolam 0.5 MG ALPRAZolam 0 .5 MG 03/26/2021 12:00:00 AM EDT 1.0 {tablet} active AL PRAZolam 0.5 MG eCW1 ([facility]) Zolpidem tartrate 10 MG Oral Tablet Zolpidem Tartrate 10 MG Zolpidem Tartrate 10 MG 03/26/2021 12:00:00 AM EDT active Zolpidem Tartrate 10 MG eCW1 ([facility]) Alprazolam 0.5 MG Oral Tablet ALPRAZolam 0.5 MG ALPRAZolam 0 .5 MG 03/26/2021 12:00:00 AM EDT 1.0 {tablet} active AL PRAZolam 0.5 MG eCW1 ([facility]) Alprazolam 0.5 MG Oral Tablet ALPRAZolam 0.5 MG ALPRAZolam 0 .5 MG 03/26/2021 12:00:00 AM EDT 1.0 {tablet} active AL PRAZolam 0.5 MG eCW1 ([facility]) Zolpidem tartrate 10 MG Oral Tablet Zolpidem Tartrate 10 MG Zolpidem Tartrate 10 MG 03/26/2021 12:00:00 AM EDT active Zolpidem Tartrate 10 MG eCW1 ([facility]) Zolpidem tartrate 10 MG Oral Tablet Zolpidem Tartrate 10 MG Zolpidem Tartrate 10 MG 03/26/2021 12:00:00 AM EDT active Zolpidem Tartrate 10 MG eCW1 ([facility]) Zolpidem tartrate 10 MG Oral Tablet Zolpidem Tartrate 10 MG Zolpidem Tartrate 10 MG 03/26/2021 12:00:00 AM EDT active Zolpidem Tartrate 10 MG eCW1 ([facility]) Alprazolam 0.5 MG Oral Tablet ALPRAZolam 0.5 MG ALPRAZolam 0 .5 MG 03/26/2021 12:00:00 AM EDT 1.0 {tablet} active AL PRAZolam 0.5 MG eCW1 ([facility]) Zolpidem tartrate 10 MG Oral Tablet Zolpidem Tartrate 10 MG Zolpidem Tartrate 10 MG 03/26/2021 12:00:00 AM EDT active Zolpidem Tartrate 10 MG eCW1 ([facility]) Alprazolam 0.5 MG Oral Tablet ALPRAZolam 0.5 MG ALPRAZolam 0 .5 MG 03/26/2021 12:00:00 AM EDT 1.0 {tablet} active AL PRAZolam 0.5 MG eCW1 ([facility]) Alprazolam 0.5 MG Oral Tablet ALPRAZolam 0.5 MG ALPRAZolam 0 .5 MG 03/26/2021 12:00:00 AM EDT 1.0 {tablet} active AL PRAZolam 0.5 MG eCW1 ([facility]) Zolpidem tartrate 10 MG Oral Tablet Zolpidem Tartrate 10 MG Zolpidem Tartrate 10 MG 03/26/2021 12:00:00 AM EDT active Zolpidem Tartrate 10 MG eCW1 ([facility]) Zolpidem tartrate 10 MG Oral Tablet Zolpidem Tartrate 10 MG Zolpidem Tartrate 10 MG 03/26/2021 12:00:00 AM EDT active Zolpidem Tartrate 10 MG eCW1 ([facility]) Zolpidem tartrate 10 MG Oral Tablet Zolpidem Tartrate 10 MG Zolpidem Tartrate 10 MG 03/26/2021 12:00:00 AM EDT active Zolpidem Tartrate 10 MG eCW1 ([facility]) Alprazolam 0.5 MG Oral Tablet ALPRAZolam 0.5 MG ALPRAZolam 0 .5 MG 03/26/2021 12:00:00 AM EDT 1.0 {tablet} active AL PRAZolam 0.5 MG eCW1 ([facility]) chlorhexidine gluconate 1.2 MG/ML Mouthwash Chlorhexid ine Gluconate 0.12 % Chlorhexidine Gluconate 0.12 % 11/27/2020 12:00:00 AM EDT 15.0 {ml} active Chlorhexidine Gluconate 0.12 % e CW1 ([facility]) chlorhexidine gluconate 1.2 MG/ML Mouthwash Chlorhexid ine Gluconate 0.12 % Chlorhexidine Gluconate 0.12 % 11/27/2020 12:00:00 AM EDT 15.0 {ml} active Chlorhexidine Gluconate 0.12 % e CW1 ([facility]) chlorhexidine gluconate 1.2 MG/ML Mouthwash Chlorhexid ine Gluconate 0.12 % Chlorhexidine Gluconate 0.12 % 11/27/2020 12:00:00 AM EDT 15.0 {ml} active Chlorhexidine Gluconate 0.12 % e CW1 ([facility]) chlorhexidine gluconate 1.2 MG/ML Mouthwash Chlorhexid ine Gluconate 0.12 % Chlorhexidine Gluconate 0.12 % 11/27/2020 12:00:00 AM EDT 15.0 {ml} active Chlorhexidine Gluconate 0.12 % e CW1 ([facility]) chlorhexidine gluconate 1.2 MG/ML Mouthwash Chlorhexid ine Gluconate 0.12 % Chlorhexidine Gluconate 0.12 % 11/27/2020 12:00:00 AM EDT 15.0 {ml} active Chlorhexidine Gluconate 0.12 % e CW1 ([facility]) chlorhexidine gluconate 1.2 MG/ML Mouthwash Chlorhexid ine Gluconate 0.12 % Chlorhexidine Gluconate 0.12 % 11/27/2020 12:00:00 AM EDT 15.0 {ml} active Chlorhexidine Gluconate 0.12 % e CW1 ([facility]) chlorhexidine gluconate 1.2 MG/ML Mouthwash Chlorhexid ine Gluconate 0.12 % Chlorhexidine Gluconate 0.12 % 11/27/2020 12:00:00 AM EDT 15.0 {ml} active Chlorhexidine Gluconate 0.12 % e CW1 ([facility]) chlorhexidine gluconate 1.2 MG/ML Mouthwash Chlorhexid ine Gluconate 0.12 % Chlorhexidine Gluconate 0.12 % 11/27/2020 12:00:00 AM EDT 15.0 {ml} active Chlorhexidine Gluconate 0.12 % e CW1 ([facility]) chlorhexidine gluconate 1.2 MG/ML Mouthwash Chlorhexid ine Gluconate 0.12 % Chlorhexidine Gluconate 0.12 % 11/27/2020 12:00:00 AM EDT 15.0 {ml} active Chlorhexidine Gluconate 0.12 % e CW1 ([facility]) chlorhexidine gluconate 1.2 MG/ML Mouthwash Chlorhexid ine Gluconate 0.12 % Chlorhexidine Gluconate 0.12 % 11/27/2020 12:00:00 AM EDT 15.0 {ml} active Chlorhexidine Gluconate 0.12 % e CW1 ([facility]) Minocycline 100 MG Oral Capsule Minocycline HCl 100 MG Minoc ycline HCl 100 MG 11/24/2020 12:00:00 AM EDT active Minocycline HCl 100 MG eCW1 ([facility]) Minocycline 100 MG Oral Capsule Minocycline HCl 100 MG Minoc ycline HCl 100 MG 11/24/2020 12:00:00 AM EDT active Minocycline HCl 100 MG eCW1 ([facility]) Minocycline 100 MG Oral Capsule Minocycline HCl 100 MG Minoc ycline HCl 100 MG 11/24/2020 12:00:00 AM EDT active Minocycline HCl 100 MG eCW1 ([facility]) Minocycline 100 MG Oral Capsule Minocycline HCl 100 MG Minoc ycline HCl 100 MG 11/24/2020 12:00:00 AM EDT active Minocycline HCl 100 MG eCW1 ([facility]) Minocycline 100 MG Oral Capsule Minocycline HCl 100 MG Minoc ycline HCl 100 MG 11/24/2020 12:00:00 AM EDT active Minocycline HCl 100 MG eCW1 ([facility]) Minocycline 100 MG Oral Capsule Minocycline HCl 100 MG Minoc ycline HCl 100 MG 11/24/2020 12:00:00 AM EDT active Minocycline HCl 100 MG eCW1 ([facility]) Minocycline 100 MG Oral Capsule Minocycline HCl 100 MG Minoc ycline HCl 100 MG 11/24/2020 12:00:00 AM EDT active Minocycline HCl 100 MG eCW1 ([facility]) Minocycline 100 MG Oral Capsule Minocycline HCl 100 MG Minoc ycline HCl 100 MG 11/24/2020 12:00:00 AM EDT active Minocycline HCl 100 MG eCW1 ([facility]) Minocycline 100 MG Oral Capsule Minocycline HCl 100 MG Minoc ycline HCl 100 MG 11/24/2020 12:00:00 AM EDT active Minocycline HCl 100 MG eCW1 ([facility]) Minocycline 100 MG Oral Capsule Minocycline HCl 100 MG Minoc ycline HCl 100 MG 11/24/2020 12:00:00 AM EDT active Minocycline HCl 100 MG eCW1 ([facility]) Minocycline 100 MG Oral Capsule Minocycline HCl 100 MG Minoc ycline HCl 100 MG 11/24/2020 12:00:00 AM EDT active Minocycline HCl 100 MG eCW1 ([facility]) Calcium Carbonate 1250 MG Oral Tablet Calcium 500 MG Calcium 500 MG 09/25/2020 12:00:00 AM EST 2.0 {tablet_with_meals} active Calcium 500 MG eCW1 ([facility]) Calcium Carbonate 1250 MG Oral Tablet Calcium 500 MG Calcium 500 MG 09/25/2020 12:00:00 AM EST 2.0 {tablet_with_meals} active Calcium 500 MG eCW1 ([facility]) Calcium Carbonate 1250 MG Oral Tablet Calcium 500 MG Calcium 500 MG 09/25/2020 12:00:00 AM EST 2.0 {tablet_with_meals} active Calcium 500 MG eCW1 ([facility]) Calcium 500 MG Calcium 500 MG 09/25/2020 12:00:00 AM EST 2.0 {tablet_with_meals} active Calcium 500 MG eCW1 ([facility]) Calcium Carbonate 1250 MG Oral Tablet Calcium 500 MG Calcium 500 MG 09/25/2020 12:00:00 AM EST 2.0 {tablet_with_meals} active Calcium 500 MG eCW1 ([facility]) Calcium Carbonate 1250 MG Oral Tablet Calcium 500 MG Calcium 500 MG 09/25/2020 12:00:00 AM EST 2.0 {tablet_with_meals} active Calcium 500 MG eCW1 ([facility]) Calcium Carbonate 1250 MG Oral Tablet Calcium 500 MG Calcium 500 MG 09/25/2020 12:00:00 AM EST 2.0 {tablet_with_meals} active Calcium 500 MG eCW1 ([facility]) Calcium 500 MG Calcium 500 MG 09/25/2020 12:00:00 AM EST 2.0 {tablet_with_meals} active Calcium 500 MG eCW1 ([facility]) Calcium Carbonate 1250 MG Oral Tablet Calcium 500 MG Calcium 500 MG 09/25/2020 12:00:00 AM EST 2.0 {tablet_with_meals} active Calcium 500 MG eCW1 ([facility]) Calcium Carbonate 1250 MG Oral Tablet Calcium 500 MG Calcium 500 MG 09/25/2020 12:00:00 AM EST 2.0 {tablet_with_meals} active Calcium 500 MG eCW1 ([facility]) Calcium 500 MG Calcium 500 MG 09/25/2020 12:00:00 AM EST 2.0 {tablet_with_meals} active Calcium 500 MG eCW1 ([facility]) Calcium Carbonate 1250 MG Oral Tablet Calcium 500 MG Calcium 500 MG 09/25/2020 12:00:00 AM EST 2.0 {tablet_with_meals} active Calcium 500 MG eCW1 ([facility]) Calcium Carbonate 1250 MG Oral Tablet Calcium 500 MG Calcium 500 MG 09/25/2020 12:00:00 AM EST 2.0 {tablet_with_meals} active Calcium 500 MG eCW1 ([facility]) Calcium Carbonate 1250 MG Oral Tablet Calcium 500 MG Calcium 500 MG 09/25/2020 12:00:00 AM EST 2.0 {tablet_with_meals} active Calcium 500 MG eCW1 ([facility]) olopatadine 2 MG/ML Ophthalmic Solution Olopatadine HCl 0.2% Ophthalmic Solution Olopatadine HCl 0.2% Ophthalmic Solution 03/18/2018 12:00:00 AM EDT aborted olopatadine 2 MG/ML Ophthalmic S olution MACIEL ([facility]) olopatadine 7 MG/ML Ophthalmic Solution [Pazeo] Pazeo 0.7% Ophthalmic Solution Pazeo 0.7% Ophthalmic Solution 03/17/2018 12:00:00 AM EDT 1 aborted olopatadine 7 MG/ML Ophthalmic Solution [Pazeo] MACIEL (Edward Berg MD [facility]) prednisolone acetate 10 MG/ML Ophthalmic Suspension [Pred Forte] Pred Forte 1% Ophthalmic Suspension Pred Forte 1% Ophthalmic Suspension 03/17/2018 12:00:0 0 AM EDT aborted predniso lone acetate 10 MG/ML Ophthalmic Suspension [Pred Forte] MACIEL (Edward Berg MD [facility]) Insurance Providers Payer name Policy type / Coverage type Policy ID Covered green party ID Covered green party's relationship to ponce Policy Ponce Plan Information [facility] Healthcare F [id number] SELF [id number] P PREMIER EXCHANGE [id number] Hannah [id number] MVP PREMIER EXCHANGE [id number] Hannah [id number] MVP [id number] Hannah [id number] 600 [facility] [id number] 82 [id number] [facility] MEDICARE [id number] Hannah [id number] [facility] Health Maintenance Organization (HMO) [id number] Self [id number] [employer] MEDICARE [id number] Hannah [id number] MEDICARE [id number] Hannah [id number] C54 [employer] Health Maintenance Organization (HMO) [id number] Self [id number] [facility] [id number] Hannah [id number] [facility] Care Option [id number] 0 [id number] Medicare Part B [facility] [id number] 0 [id number] Medicare Blue Ppo Primary [id number] ANSI-Commercial [id number] ANSI-Medicare Part B [id number] ANSI-Commercial [id number]-[id number] 93a7fxka-[id number] ANSI-Medicare Part B [id number] ANSI-Commercial [id number] ANSI-Commercial [id number]-ll4k-[id number]-0488-rx6c-[id number] ANSI-Commercial [id number]-w18t-3ra7-3c7s-[id number] d87x6m61-b91c-5pa8-1z0o-[id number] ANSI-Medicare Part B [id number] ANSI-Commercial [id number]-[id number]-h2q3-8j03-[id number] ANSI-Commercial [id number]-[id number] d499p002-29c5-54lm-[id number] ANSI-Medicare Part B [id number] ANSI-Commercial [id number]-64uu-1762-[id number] 0h6z590m-98kh-8895-[id number] ANSI-Medicare Part B [id number]-[id number] ANSI-Commercial c51jhl71-32db-69t7-[id number] n82vuw94-48zx-75v2-[id number] ANSI-Medicare Part B [id number]-t2zz-3256-2a2d-[id number] ANSI-Medicare Part B [id number]-[id number] ANSI-Commercial 9832a75t-[id number] 9254k38t-vp75-11j8-82m2-73488187p47d ANSI-Commercial z6m91w5b-3592-0z22-9ey9-0l21ff65p6x8 d2m60t1g-0183-0y52-6ln0-0o55uj43w7c9 ANSI-Commercial 98p9h202-541k-40v6-7w44-93s11195304f 31j3b604-495s-46b7-6u01-04i03036496s ANSI-Commercial 37gz4akr-w97v-3960-7vj4-916vo98y88jg 81gv4ccp-t59f-0924-3pg1-727ri57e52dr ANSI-Medicare Part B [id number]-c30ykisiqjib [id number]-3078-ac14-w48ovyltaunv ANSI-Medicare Part B [id number] 68uba0t0-hce7-1jlq-m185-2jy1e5m183m7 ANSI-Commercial 7muoc883-w42v-0697-r240-08on7447v95m 8ogyg574-u77h-8194-s662-65vu7117r96e ANSI-Medicare Part B [id number]-[id number] ov893kja-a9fq-0jnq-37v6-74jibnc39uk4 ANSI-Commercial m416i46u-880t-3ak5-n3yj-05v407wm98n6 m405n67c-052h-0tb6-u7la-85e128lv83s9 ANSI-Medicare Part B [id number] i34ne829-v9us-2ybu-772d-0srx2o870412 ANSI-Commercial 034j665u-15w9-29c8-9379-79fhf823346l 450c166a-44e0-25s6-1430-70htz313614o ANSI-Commercial 3ub9m511-36wt-7p0v-bte9-53212x7wk3b7 0vm2a479-57bi-5e9d-ako7-74146a3zw0d7 ANSI-Commercial ezp47716-95k6-55hn-d06w-8ka16mj5g44t gpk29691-39p0-47xg-q59a-0gj73wa8q11i ANSI-Medicare Part B [id number]-jjp2-8q62w5us498e zr4ja5th-8824-46j1-udy2-3z68b8ln900i ANSI-Commercial 05j024yt-1g3p-664p-jz76-oh6345us809m 55i475dt-6l4d-795g-ls20-qa8707te578g ANSI-Commercial w96qoy0m-co44-4081-p6yk-46v75rj4o58p s21maq5m-ry56-9246-r3ye-03i82kh5m33l ANSI-Medicare Part B [id number]-e56c-scrnc89201fa l380q7m5-2b63-09kg-p74n-jeukk12974ef ANSI-Commercial 2s4ez596-25f9-41us-97i6-n4g071c9449w 2z1tx804-01b8-07lr-57f3-v1o749b8771t ANSI-Medicare Part B [id number]-wp30-5e0h-8508-1ds7rod8fy0h l7144395-zn16-6v3v-9982-9sr6jbn9we7t ANSI-Commercial 60j0oyp0-9xfc-42h1-zt80-1b11bq44730x 63o7yqu0-3bqz-23b2-ua17-3i72vu46750k ANSI-Medicare Part B [id number]-v6b8-q24z5luzh6y9 i23q26q2-3k99-9h10-d2z4-k06m0xrgj7j1 ANSI-Commercial 1272z8bk-824e-96x6-4022-s895926s9698 4442p2up-275x-79e4-4856-b240269c0968 ANSI-Commercial 831122d4-799d-8539-b93f-c02v9xt24jm6 815383y1-427r-4604-g24f-e48h6zh54en9 ANSI-Medicare Part B [id number]-h5g5-3101-sxt9-[id number] 3om6o2l9-v8s8-6039-wzj6-l0u699bt5s71 ANSI-Commercial 53qvc393-74qw-96yr-i6p1-g398g7069s7d 24kzn990-14uv-22vj-g7s9-e970c0375r1z ANSI-Medicare Part B 6381eq21-303x-76i2-8168-933i814b891k 2709kz77-454j-06r7-9624-640q547z821v ANSI-Commercial 4iyl978g-48kv-3d76-009t-jrza2a9pfrd8 3mjy820z-51mr-2o26-273j-kexf6b6cket7 [facility] Part B [id number] Self [id number] Medicare [facility] Medicare Primary [id number] Self [id number] ANSI-Commercial 132734d2-gb2k-8345-97ig-s568ztj0u14i 873118w3-ee4p-6908-77pr-b215cje0o98y ANSI-Medicare Part B [id number]-q4p0-ff3n8372btp5 78hoe153-447e-479r-k1p5-kz2l8588sqq1 ANSI-Commercial 20lnif26-aj30-3k40-x991-bl8zwaqz904a 92yhxi44-vd70-4l34-d209-ft2fkjxp166k ANSI-Commercial 385q696c-0d0b-4596-266o-tmd32k42w65x 571m621g-3l2m-8052-563t-sus52h11m48y ANSI-Commercial 00285093-69dr-118h-xb0o-5h7008wgb413 76883363-54sv-469v-rs4z-7w7344ztc428 ANSI-Medicare Part B [id number] 5168s160-3a54-7s60-tc03-8mq742303590 ANSI-Commercial xd9c4p9u-5n9x-6952-jcw1-s58re0444df8 nr6a1f4f-9j7h-3360-ywp2-e14hq7053mu3 ANSI-Medicare Part B [id number]-0842-hcy0uk5z1f6x 60573g83-1157-4g5r-1447-ksx3ig9v7e8k ANSI-Commercial a7913538-7gp5-7guu-o8tz-s8lc0h75d1h3 g4896781-2he4-2ubp-i1kf-f8uj7a52k6b0 ANSI-Medicare Part B [id number]-33t7-l9b8-so81w517h3f8 v188yh9y-c2uv-67g4-q5o5-hu00q331h4s0 ANSI-Commercial 450w718l-885x-0iy4-u82e-ek8a5p858i0g 558p053a-884o-4br5-a57k-yo3a8j509h8z ANSI-Commercial x73854as-t6vc-2vfh-s4x4-781gz479984b f10874ou-q1wb-1rhq-a6t6-076tb693704v MEDICARE BLUE PPO 306 [id number] SP [id number] [employer]BS B [id number] S [id number] ANSI-Commercial 83t3d444-tj4f-7z6l-g2as-u251n7xbgs3z 58j0r652-qb8c-7n8r-y4cl-i866u7ccdt2s ANSI-Commercial 67498rx1-egr3-2w5u-30k1-968u830w1uco 06773cs8-dwp7-8x5a-36y2-315h957x3bsi ANSI-Medicare Part B [id number]-[id number]-6211-2l080e793c95 MEDICARE [id number] SP [id number] SELF PAY ONLY SP P HEALTH CARE [id number] SP [id number] [facility] Health Maintenance Organization (HMO) [id number] 0 [id number] Self [id number] P Health Maintenance Organization (HMO) [id number] 1 [id number] Family Dependent [id number] P HEALTH CARE O [id number] S [id number] [facility] Health Maintenance Organization (HMO) [id number] 0 [id number] Self [id number] P HEALTH CARE [id number] SP [id number] P Health Maintenance Organization (HMO) [id number] 0 [id number] Self [id number] P Health Maintenance Organization (HMO) [id number] 0 [id number] Self [id number] [facility] Health Maintenance Organization (HMO) [id number] Se lf P Health Maintenance Organization (HMO) [id number] Fa roselia Dependent P HEALTH CARE [id number] SP [id number] P HEALTH CARE [id number] SP [id number] [facility] HEALTH CARE O [id number] S [id number] [facility] PREMIER EXCHANGE [id number] Hannah [id number] [facility] PHY [id number] SP [id number] [facility] PHY [id number] SP [id number] [facility] PHY [id number] SP [id number] MEDICARE BLUE PPO 306 [id number] SP [id number] 801 [employer] of [facility] [place] Other 0 [id number] Self 0 MEDICARE BLUE PPO [id number] SP [id number] [facility] HEALTH CARE OPTIONS [id number] SP [id number] MEDICARE [id number] SP [id number] BCBS of [facility] [place] Other 0 [id number] Self 0 Medicare Part B [facility] Other 0 [id number] Self 0 ANSI-Commercial 4gjl894c-132a-2a40-pf0x-7jbl98m4l717 5fid938h-876c-3f02-ul3b-8vjr82n6z769 ANSI-Commercial 40e0lprp-u3pa-56g7-tvip-70285dq2c7w8 02h1fqic-b9ia-88r1-beyr-38473xs0a3r4 ANSI-Medicare Part B [id number]-[id number] ANSI-Commercial 58x645q3-2s2t-7w8w-7e49-651k8v80861h 11n189b3-4j4e-1q1o-1t59-095g5p29430h ANSI-Medicare Part B [id number]-0537-u4mb-[id number] ANSI-Medicare Part B [id number] [employer] [id number] Problems, Conditions, and Diagnoses Code Display Name Description Problem Type Effective Dates Data Source(s) 777966629 Diverticulitis Diverticulitis Problem 05/22/2021 12:00: 00 AM EDT MEDENT ([facility]) Z12.39 Breast cancer screening Breast cancer screening [facility] 03/27/2021 12:00:00 AM EDT eCW1 ([facility]) L71.9 [id number] Rosacea Problem 09/22/2020 12:00:00 AM ES T eCW1 ([facility]) F41.1 [id number] JAYANT (generalized anxiety disorder) Proble 09/22/2020 12:00:00 AM EST eCW1 ([facility]) R00.2 15451608 Palpitations Problem 09/22/2020 12:00:00 AM EST eCW1 ([facility]) 3112480 Posterior Vitreous Detachment Left Eye P osterior Vitreous Detachment Left Eye Problem 04/20/2020 12:00:00 AM EDT MACIEL (Niranjan Berg MD [facility]) 3578016 Posterior Vitreous Detachment Left Eye P osterior Vitreous Detachment Left Eye Problem 04/20/2020 12:00:00 AM EDT MACIEL (Niranjan Berg MD [facility]) 372.05 Conjunctivitis Acute Atopic Conjunctivitis Acute Atopi c Problem 03/17/2018 12:00:00 AM EDT - 04/20/2020 12:00:00 AM EDT MACIEL (Edward Berg MD [facility]) 372.05 Conjunctivitis Acute Atopic Conjunctivitis Acute Atopi c Problem 03/17/2018 12:00:00 AM EDT - 04/20/2020 12:00:00 AM EDT MACIEL (Edward Berg MD [facility]) 379.02 Episcleritis Nodular Episcleritis Nodular Problem 03/09/2018 12:00:00 AM EDT - 04/20/2020 12:00:00 AM EDT MACIEL (Edward Berg MD [facility]) 379.02 Episcleritis Nodular Episcleritis Nodular Problem 03/09/2018 12:00:00 AM EDT - 04/20/2020 12:00:00 AM EDT MACIEL (Edward Berg MD [facility]) Surgeries/Procedures Procedure Description Date Indications Data Source(s) OFFICE OUTPATIENT NEW 30 MINUTES 05/22/2021 12:00:00 A M EDT [facility] ([facility]) Remove Impacted Cerumen 04/18/2021 12:00:00 AM EDT [facility] ([facility] ) Remove Impacted Cerumen 10/18/2020 12:00:00 AM EST [facility] ([facility]) ECG ROUTINE ECG W/LEAST 12 LDS W/I&R 09/22/2020 12:00: 00 AM EST eCW1 ([facility]) Intermediate Eye Exam Established Patient Intermediate Eye Exam Established Patient 07/19/2020 12:00:00 AM EST MACIEL (Niranjan mary grace Berg MD [facility]) Surgical / procedural history Breast bi opsy 2016, Lumpectomy of right breast with radiation Surgical / procedural history Breast bi opsy 2016, Lumpectomy of right breast with radiation 04/20/2020 12:00:[address] (Edward Berg MD [facility]) Intermediate Eye Exam Established Patient Intermediate Eye Exam Established Patient 04/20/2020 12:00:00 AM EDT MACIEL (Niranjan Berg MD [facility]) Results ID Date Data Source [id number] 04/09/2021 11:37:25 AM EDT [facility] Name Value Range Interpretation Code Description Data Linnea rce(s) Supporting Document(s) *Follow Up Visit LORETO v1 [facility] KLMBDc1tDdIKVyXsy1lpGOwhHJZka5QbHMi1NM0LC8ZzLAvxokLbCVQcxqYpI8SoWXWhNEGFMJedJMta FQz [file] 14Xv9+cN70JmcOGy/fire control assistant+5WOYnqHv7CdAAgiNRTCW4oNtrOdgsVgie0JUOpcET7z0RMBTmLq107QZE0Ap WKQD3ItbuyuJw2BDMd1sKyFuGZToZVVLS0V1gzfHti Botft8hOfYZTOVoe9VXyPkMWIPkEDlPPxzWNnLsCkOCrljJaBSqaD57Sw0VZgaY6YWuJRhjb4+CKg07I TpSxB25gDNMFMoIAfTCqjqKbAZoHN9WGLx9wgBWYA+SgWWTNImgWQSfkoFlkzeQeXHHQCTloVuzBVRNo ThLa0CBPQS2ngPZZI+IRNIusWQDNAuiEHDQLrFkAzQ [file] 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/liesr61OkTj9kSvl0fRh/vNTwxxZe/OKCpb+7zn [file] Procedure Social History Code Duration Value Status Description Data Source(s ) Smoking 05/09/2021 06:45:21 AM EDT Ex-smoker (finding) complet ed Ex-smoker (finding) MACIEL (Edward eBrg MD [facility]) Smoking 03/26/2021 12:00:00 AM EDT Former Smoker completed Former Smoker eCW1 ([facility]) Smoking 03/26/2021 12:00:00 AM EDT Former Smoker completed Former Smoker eCW1 ([facility]) Smoking 03/26/2021 12:00:00 AM EDT Former Smoker completed Former Smoker eCW1 ([facility]) Smoking 03/26/2021 12:00:00 AM EDT Former Smoker completed Former Smoker eCW1 ([facility]) Smoking 03/26/2021 12:00:00 AM EDT Former Smoker completed Former Smoker eCW1 ([facility]) Smoking 03/26/2021 12:00:00 AM EDT Former Smoker completed Former Smoker eCW1 ([facility]) Smoking 03/26/2021 12:00:00 AM EDT Former Smoker completed Former Smoker eCW1 ([facility]) Smoking 03/26/2021 12:00:00 AM EDT Former Smoker completed Former Smoker eCW1 ([facility]) Smoking 09/22/2020 12:00:00 AM EST Former Smoker completed Former Smoker eCW1 ([facility]) Smoking 09/22/2020 12:00:00 AM EST Former Smoker completed Former Smoker eCW1 ([facility]) Smoking 09/22/2020 12:00:00 AM EST Former Smoker completed Former Smoker eCW1 ([facility]) Smoking 09/22/2020 12:00:00 AM EST Former Smoker completed Former Smoker eCW1 ([facility]) Smoking 09/22/2020 12:00:00 AM EST Former Smoker completed Former Smoker eCW1 ([facility]) Smoking 09/22/2020 12:00:00 AM EST Former Smoker completed Former Smoker eCW1 ([facility]) Smoking 04/20/2020 09:53:26 AM EDT Ex-smoker (finding) complet ed Ex-smoker (finding) MACIEL ([facility]) Vital Signs ID Date Data Source UNK Name Value Range Interpretation Code Description Data Source(s) Body height 61 [in_i] 61 [in_i] [facility] Body weight 179.00 [lb_av] 179.00 [lb_av] MEDEN T ([facility]) Systolic blood pressure 121 mm[Hg] 121 mm[Hg] M EDENT ([facility]) Diastolic blood pressure 83 mm[Hg] 83 mm[Hg] MEDENT ([facility]) Heart rate 85 /min 85 /min [facility]) Body mass index (BMI) [Ratio] 33.8 kg/m2 33.8 k g/m2 MEDENT ([facility]) Body weight 81.194 kg 81.194 kg [facility] ([facility]) Body temperature 97.3 [degF] 97.3 [degF] MEDENT ([facility]) Body weight 81.194 kg 81.194 kg [facility] ([facility], ) Body surface area Derived from formula 1.81 m2 1.81 m2 [facility] ([facility], ) Body height 61.50 [in_i] 61.50 [in_i] MEDENT ([facility], ) 5'1.50" Body weight 179.00 [lb_av] 179.00 [lb_av] MEDEN T ([facility], ) Body mass index (BMI) [Ratio] 33.3 kg/m2 33.3 k g/m2 [facility] ([facility], ) [place] body weight 105 [lb_av] 105 [lb_av] MEDEN T ([facility], ) Body weight 178 [lb_av] 178 [lb_av] eCW1 ([facility]) Body weight 80.74 kg 80.74 kg eCW1 ([facility]) Body height 64 [in_i] 64 [in_i] eCW1 ([facility]) Body mass index (BMI) [Ratio] 30.55 kg/m2 30.55 kg/m2 eCW1 ([facility]) Heart rate 96 /min 96 /min eCW1 ([facility]) Respiratory rate 20 /min 20 /min eCW1 ([facility]) Body temperature 97.8 [degF] 97.8 [degF] eCW1 ( [facility]) Systolic blood pressure 128 mm[Hg] 128 mm[Hg] e CW1 ([facility]) Diastolic blood pressure 70 mm[Hg] 70 mm[Hg] eCW1 ([facility]) Body height 61.50 [in_i] 61.50 [in_i] [facility], [facility] 5'1.50" Body weight 165.00 [lb_av] 165.00 [lb_av] MEDEN T ([facility]) Body mass index (BMI) [Ratio] 30.7 kg/m2 30.7 k g/m2 [facility] ([facility]) [place] body weight 105 [lb_av] 105 [lb_av] MEDEN T ([facility], ) Body weight 74.844 kg 74.844 kg [facility] ([facility]) Body surface area Derived from formula 1.75 m2 1.75 m2 [facility] ([facility]) Body weight 176.8 [lb_av] 176.8 [lb_av] eCW1 ([facility]) Body height 64 [in_i] 64 [in_i] eCW1 ([facility]) Body mass index (BMI) [Ratio] 30.34 kg/m2 30.34 kg/m2 W1 ([facility]) Heart rate 109 /min 109 /min eCW1 ([facility]) Respiratory rate 18 /min 18 /min eCW1 ([facility]) Body temperature 98.9 [degF] 98.9 [degF] eCW1 ( [facility]) Systolic blood pressure 132 mm[Hg] 132 mm[Hg] e CW1 ([facility]) Diastolic blood pressure 88 mm[Hg] 88 mm[Hg] eCW1 ([facility]) Body height 61.50 [in_i] 61.50 [in_i] MEDENT ([facility], ) 5'1.50" Body weight 165.00 [lb_av] 165.00 [lb_av] MEDEN T ([facility], ) Body mass index (BMI) [Ratio] 30.7 kg/m2 30.7 k g/m2 [facility] ([facility], ) Body weight 74.844 kg 74.844 kg [facility] ([facility], ) Patient Treatment Plan of Care Planned Activity Planned Date Details Description Data Source (s) Inulin 200 MG / Lactobacillus rhamnosus GG [id number] UNT Oral Capsule 04/25/2021 12:00:00 AM EDT eCW1 ([facility]) Amoxicillin 875 MG / Clavulanate 125 MG Oral Tablet 04/25/20 21 12:00:00 AM EDT eCW1 ([facility]) Inulin 200 MG / Lactobacillus rhamnosus GG [id number] UNT Oral Capsule 04/25/2021 12:00:00 AM EDT eCW1 ([facility]) Amoxicillin 875 MG / Clavulanate 125 MG Oral Tablet 04/25/20 21 12:00:00 AM EDT eCW1 ([facility]) Inulin 200 MG / Lactobacillus rhamnosus GG [id number] UNT Oral Capsule 04/25/2021 12:00:00 AM EDT eCW1 ([facility]) Amoxicillin 875 MG / Clavulanate 125 MG Oral Tablet 04/25/20 12:00:00 AM EDT eCW1 ([facility]) Inulin 200 MG / Lactobacillus rhamnosus GG [id number] UNT Oral Capsule 04/25/2021 12:00:00 AM EDT eCW1 ([facility]) Amoxicillin 875 MG / Clavulanate 125 MG Oral Tablet 04/25/20 12:00:00 AM EDT eCW1 ([facility]) Alprazolam 0.5 MG Oral Tablet 03/26/2021 12:00:00 AM EDT eCW1 ([facility]) Zolpidem tartrate 10 MG Oral Tablet 03/26/2021 12:00:00 AM EDT eCW1 ([facility]) Alprazolam 0.5 MG Oral Tablet 03/26/2021 12:00:00 AM EDT eCW1 ([facility]) Zolpidem tartrate 10 MG Oral Tablet 03/26/2021 12:00:00 AM EDT eCW1 ([facility]) Alprazolam 0.5 MG Oral Tablet 03/26/2021 12:00:00 AM EDT eCW1 ([facility]) Zolpidem tartrate 10 MG Oral Tablet 03/26/2021 12:00:00 AM EDT eCW1 ([facility]) Alprazolam 0.5 MG Oral Tablet 03/26/2021 12:00:00 AM EDT eCW1 ([facility]) Zolpidem tartrate 10 MG Oral Tablet 03/26/2021 12:00:00 AM EDT eCW1 ([facility]) Zolpidem tartrate 10 MG Oral Tablet 03/26/2021 12:00:00 AM EDT eCW1 ([facility]) Alprazolam 0.5 MG Oral Tablet 03/26/2021 12:00:00 AM EDT eCW1 ([facility]) Zolpidem tartrate 10 MG Oral Tablet 03/26/2021 12:00:00 AM EDT eCW1 ([facility]) Alprazolam 0.5 MG Oral Tablet 03/26/2021 12:00:00 AM EDT eCW1 ([facility]) Zolpidem tartrate 10 MG Oral Tablet 03/26/2021 12:00:00 AM EDT eCW1 ([facility]) Alprazolam 0.5 MG Oral Tablet 03/26/2021 12:00:00 AM EDT eCW1 ([facility]) Zolpidem tartrate 10 MG Oral Tablet 03/26/2021 12:00:00 AM EDT eCW1 ([facility]) Alprazolam 0.5 MG Oral Tablet 03/26/2021 12:00:00 AM EDT eCW1 ([facility]) chlorhexidine gluconate 1.2 MG/ML Mouthwash 11/27/2020 12:00:00 AM EDT eCW1 ([facility]) chlorhexidine gluconate 1.2 MG/ML Mouthwash 11/27/2020 12:00:00 AM EDT eCW1 ([facility]) Minocycline 100 MG Oral Capsule 11/24/2020 12:00:00 AM EDT eCW1 ([facility]) Minocycline 100 MG Oral Capsule 11/24/2020 12:00:00 AM EDT eCW1 ([facility]) Minocycline 100 MG Oral Capsule 11/24/2020 12:00:00 AM EDT eCW1 ([facility]) Minocycline 100 MG Oral Capsule 11/24/2020 12:00:00 AM EDT eCW1 ([facility]) Minocycline 100 MG Oral Capsule 11/24/2020 12:00:00 AM EDT eCW1 ([facility]) Minocycline 100 MG Oral Capsule 11/24/2020 12:00:00 AM EDT eCW1 ([facility]) Minocycline 100 MG Oral Capsule 11/24/2020 12:00:00 AM EDT eCW1 ([facility]) Minocycline 100 MG Oral Capsule 11/24/2020 12:00:00 AM EDT eCW1 ([facility]) Minocycline 100 MG Oral Capsule 11/24/2020 12:00:00 AM EDT eCW1 ([facility]) Minocycline 100 MG Oral Capsule 11/24/2020 12:00:00 AM EDT eCW1 ([facility]) Minocycline 100 MG Oral Capsule 11/24/2020 12:00:00 AM EDT eCW1 ([facility]) Calcium Carbonate 1250 MG Oral Tablet 09/25/2020 12:00:00 AM EST eCW1 ([facility]) Calcium 500 MG 09/25/2020 12:00:00 AM EST eCW1 ([facility]) Calcium 500 MG 09/25/2020 12:00:00 AM EST eCW1 ([facility]) Calcium 500 MG 09/25/2020 12:00:00 AM EST eCW1 ([facility]) Calcium Carbonate 1250 MG Oral Tablet 09/25/2020 12:00:00 AM EST eCW1 ([facility]) Calcium Carbonate 1250 MG Oral Tablet 09/25/2020 12:00:00 AM EST eCW1 ([facility]) olopatadine 2 MG/ML Ophthalmic Solution 03/18/2018 12:00:00 AM EDT MACIEL ([facility]) prednisolone acetate 10 MG/ML Ophthalmic Suspension [P red Forte] 03/17/2018 12:00:00 AM EDT MACIEL ([facility]) olopatadine 7 MG/ML Ophthalmic Solution [Pazeo] 03/17/2018 12:00:00 AM EDT MACIEL ([facility])
[2021-05-30] MEDS ORDERED: LIDOCAINE 2% 100MG/5ML SDV (FOR ANES.) As Ordered ONE (13:32)
[2021-05-30] MEDS ORDERED: propofoL 200 MG/20 ML VIAL As Ordered ONE ×2 (13:32→14:56)
[2021-05-30] MEDS ORDERED: CLAR10CA3 PO (13:56)
--- NOTE | 2021-05-30 15:05 | ROOR ---
Patient Name: Estela Castellanos Procedure Date: 05/30/2021 2:32 PM Date of : 1955 Age: 66 Room: [facility] Gender: Female Note Status: Finalized Procedure: Total Colonoscopy to Cecum Indications: Unexplained iron deficiency anemia, Follow-up of diverticulitis Providers: Unruly Gaviria MD Referring MD: Corey Brown MD Requesting Provider: Medicines: Monitored Anesthesia Care Complications: No immediate complications. Procedure: Pre-Anesthesia Assessment: - The heart rate, respiratory rate, oxygen saturations, blood pressure, adequacy of pulmonary ventilation, and response to care were monitored throughout the procedure. The Colonoscope was introduced through the anus with the intention of advancing to the cecum. The scope was advanced to the sigmoid colon before the procedure was aborted. Medications were given. The Colonoscope was introduced through the anus and advanced to the cecum, identified by appendiceal orifice and ileocecal valve. The colonoscopy was performed without difficulty. The patient tolerated the procedure well. The quality of the bowel preparation was excellent. Findings: The perianal and digital rectal examinations were normal. Non-bleeding internal hemorrhoids were found during retroflexion. The hemorrhoids were small and Grade I (internal hemorrhoids that do not prolapse). Multiple small and large-mouthed diverticula were found in the recto-sigmoid colon, sigmoid colon and descending colon. A benign-appearing, intrinsic moderate stenosis was found at 25 cm proximal to the anus and was traversed. The exam was otherwise without abnormality on direct and retroflexion views. Impression: - Non-bleeding internal hemorrhoids. - Diverticulosis in the recto-sigmoid colon, in the sigmoid colon and in the descending colon. - Stricture at 25 cm proximal to the anus. - The examination was otherwise normal on direct and retroflexion views. - No specimens collected. - The exam was otherwise normal to the cecum. Recommendation: - Patient has a contact number available for emergencies. The signs and symptoms of potential delayed complications were discussed with the patient. Return to normal activities tomorrow. Written discharge instructions were provided to the patient. - High fiber diet. - Discharge patient to home. - Continue present medications. - Repeat colonoscopy in 5 years for surveillance. - Return to referring physician. - The findings and recommendations were discussed with the patient. Procedure Code(s): --- Professional --- 85491, 53, Colonoscopy, flexible; diagnostic, including collection of specimen(s) by brushing or washing, when performed (separate procedure) Diagnosis Code(s): --- Professional --- K64.0, First degree hemorrhoids K56.699, Other intestinal obstruction unspecified as to partial versus complete obstruction D50.9, Iron deficiency anemia, unspecified K57.32, Diverticulitis of large intestine without perforation or abscess without bleeding K57.30, Diverticulosis of large intestine without perforation or abscess without bleeding CPT copyright 2019 [employer]. All rights reserved. The codes documented in this report are preliminary and upon death surveys coder review may be revised to meet current compliance requirements. Unruly Gaviria MD Unruly Gaviria MD 05/30/2021 3:04:45 PM Electronically signed by Unruly Gaviria MD Number of Addenda: 0 Note Initiated On: 05/30/2021 2:32 PM Estimated Blood Loss: Estimated blood loss: none.
[2021-05-30 15:25] VITALS: BP 136/65
== END 2021-05-30 15:30 | disposition home or self-care (01) ==
LOC: M OPP 12:43
PROVIDERS: ATTEND Internal Medicine Gastroenterology
DX: K56.699 Other intestinal obstruction unspecified as to partial versus complete obstruction (principal); K57.32 Diverticulitis of large intestine without perforation or abscess without bleeding; K57.30 Diverticulosis of large intestine without perforation or abscess without bleeding; K64.0 First degree hemorrhoids; D50.9 Iron deficiency anemia, unspecified; Z79.899 Other long term (current) drug therapy; Z79.82 Long term (current) use of aspirin; Z87.891 Personal history of nicotine dependence

== ENCOUNTER → 2021-07-23 | Outpatient (CLI) | payer MEDICARE ==
[~2021-07-23] MED LIST changes: +CLAR10CA3 PO; -NS 1,000 ML IV ONE
[2021-07-23 11:22] LABS: BASO % 0.4 % (0.0-1.0); EOS # 0.4 10^3/uL (0.0-0.5); EOS % 3.6 % (0.0-3.0); HEMATOCRIT 38.9 % (36.0-47.0); HEMOGLOBIN 12.5 g/dl (12.0-15.5); LYMPH # 1.4 10^3/uL (1.5-5.0); LYMPH % 14.4 % (24.0-44.0); MEAN CORPUSCULAR HEMOGLOBIN 28.9 pg (27.0-33.0); MEAN CORPUSCULAR HGB CONC 32.1 g/dl (32.0-36.5); MEAN CORPUSCULAR VOLUME 89.8 fl (80.0-96.0); MONO # 0.9 10^3/uL (0.0-0.8); MONO % 9.6 % (2.0-8.0); NEUTROPHILS % 71.4 % (36.0-66.0); PLATELET COUNT, AUTOMATED 319 10^3/uL (150-450); RED BLOOD COUNT 4.33 10^6/uL (4.00-5.40); WHITE BLOOD COUNT 9.8 10^3/uL (4.0-10.0)
[2021-07-23 13:02] LABS: ALT/SGPT 17 U/L (12-78); BILIRUBIN,TOTAL 0.5 MG/DL (0.2-1.0); BLOOD UREA NITROGEN 16 MG/DL (7-18); CALCIUM LEVEL 8.6 MG/DL (8.8-10.2); CARBON DIOXIDE LEVEL 25 MEQ/L (21-32); CHLORIDE LEVEL 103 MEQ/L (98-107); CHOLESTEROL LEVEL 113 MG/DL (<200); CHOLESTEROL RISK RATIO 3.228 (<5); CREATININE FOR GFR 0.72 MG/DL (0.55-1.30); GLOMERULAR FILTRATION RATE > 60.0 (>45); GLUCOSE, FASTING 103 MG/DL (70-100); HDL CHOLESTEROL 35 MG/DL (>40); LDL CHOLESTEROL 24 MG/DL (<100); NON-HDL-C 78 MG/DL; NT-PRO BNP 79 PG/ML (<125); POTASSIUM SERUM 3.8 MEQ/L (3.5-5.1); PTH INTACT 35.5 PG/ML (18.5-88.0); SODIUM LEVEL 141 MEQ/L (136-145); TOTAL 25(OH) VITAMIN D 85.1 NG/ML (30.0-100.0); TOTAL PROTEIN 6.5 GM/DL (6.4-8.2); TRIGLYCERIDES LEVEL 268 MG/DL (<150)
[2021-07-23 13:03] LABS: FERRITIN 15 NG/ML (8-252)
[2021-07-23 13:58] LABS: HEMOGLOBIN A1c 5.9 %
[2021-07-24 08:10] LABS: H PYLORI SERUM QUANT IgG ABY 0.52 (0.00-0.79); INSULIN LEVEL 30.3 uIU/mL (2.6-24.9)
== END ==
LOC: M WUC 09:51
PROVIDERS: ATTEND Family Medicine
DX: E78.5 Hyperlipidemia, unspecified (principal); E11.9 Type 2 diabetes mellitus without complications; D50.9 Iron deficiency anemia, unspecified; K27.9 Peptic ulcer, site unspecified, unspecified as acute or chronic, without hemorrhage or perforation; E55.9 Vitamin D deficiency, unspecified; I10 Essential (primary) hypertension; Z79.899 Other long term (current) drug therapy

== ENCOUNTER → 2021-08-23 | Outpatient (REF) | payer MEDICARE ==
[2021-08-23 13:28] LABS: APPEARANCE, URINE CLOUDY (CLEAR); BACTERIA, URINE AUTO NEGATIVE (NEGATIVE); BILIRUBIN, URINE AUTO NEGATIVE (NEGATIVE); BLOOD, URINE BLOOD NEGATIVE (NEGATIVE); COLOR, URINE YELLOW (YELLOW); GLUCOSE, URINE (UA) AUTO NEGATIVE (NEGATIVE); KETONE, URINE AUTO TRACE mg/dL (NEGATIVE); LEUKOCYTE ESTERASE, URINE AUTO 1+ (NEGATIVE); MUCUS, URINE SMALL (NEGATIVE); NITRITE, URINE AUTO NEGATIVE (NEGATIVE); PROTEIN, URINE AUTO 1+ mg/dL (NEGATIVE); RBC, URINE AUTO 80 /HPF (0-3); SPECIFIC GRAVITY URINE AUTO 1.018 (1.002-1.035); SQUAMOUS EPITHELIAL CELL UR AU 2 /HPF (0-6); UROBILINOGEN, URINE AUTO 0.2 mg/dL (0.0-2.0); WBC, URINE AUTO 13 /HPF (0-3)
== END ==
LOC: M SFHCPLAZ 12:38
PROVIDERS: ATTEND Family Medicine
DX: R31.0 Gross hematuria (principal)

== ENCOUNTER → 2022-01-01 | Outpatient (CLI) | payer MEDICARE ==
[~2022-01-01] MED LIST changes: -D31000TA2 PO; +VITA100093 PO
[2022-01-01 11:41] LABS: BASO % 0.4 % (0.0-1.0); EOS # 0.3 10^3/uL (0.0-0.5); HEMATOCRIT 38.5 % (36.0-47.0); HEMOGLOBIN 12.3 g/dl (12.0-15.5); LYMPH # 1.5 10^3/uL (1.5-5.0); LYMPH % 15.8 % (24.0-44.0); MEAN CORPUSCULAR HEMOGLOBIN 28.7 pg (27.0-33.0); MEAN CORPUSCULAR HGB CONC 31.9 g/dl (32.0-36.5); MONO % 10.3 % (2.0-8.0); NEUTROPHILS # 6.5 10^3/uL (1.5-8.5); PLATELET COUNT, AUTOMATED 350 10^3/uL (150-450); RED BLOOD COUNT 4.28 10^6/uL (4.00-5.40); WHITE BLOOD COUNT 9.3 10^3/uL (4.0-10.0)
[2022-01-01 12:38] LABS: ALBUMIN 3.4 GM/DL (3.2-5.2); ALT/SGPT 29 U/L (12-78); BILIRUBIN,TOTAL 0.6 MG/DL (0.2-1.0); BLOOD UREA NITROGEN 16 MG/DL (7-18); CALCIUM LEVEL 9.3 MG/DL (8.8-10.2); CARBON DIOXIDE LEVEL 31 MEQ/L (21-32); CHLORIDE LEVEL 99 MEQ/L (98-107); CHOLESTEROL LEVEL 146 MG/DL (<200); CHOLESTEROL RISK RATIO 3.244 (<5); CREATININE FOR GFR 0.74 MG/DL (0.55-1.30); FERRITIN 12 NG/ML (8-252); GLOMERULAR FILTRATION RATE > 60.0 (>45); GLUCOSE, FASTING 118 MG/DL (70-100); HDL CHOLESTEROL 45 MG/DL (>40); LDL CHOLESTEROL 44 MG/DL (<100); NON-HDL-C 101 MG/DL; SODIUM LEVEL 139 MEQ/L (136-145); TOTAL PROTEIN 6.9 GM/DL (6.4-8.2); TRIGLYCERIDES LEVEL 284 MG/DL (<150)
[2022-01-03 02:07] LABS: INSULIN LEVEL 38.3 uIU/mL (2.6-24.9)
== END ==
LOC: M WUC 09:31
PROVIDERS: ATTEND Family Medicine
DX: E11.9 Type 2 diabetes mellitus without complications (principal); D50.9 Iron deficiency anemia, unspecified; E78.5 Hyperlipidemia, unspecified

== ENCOUNTER → 2022-01-25 | Outpatient (CLI) | payer MEDICARE ==
[~2022-01-25] MED LIST changes: -TRIA37.53 PO; +TRIA37.577 PO
[2022-01-25 17:08] LABS: CALCIUM LEVEL 8.5 MG/DL (8.8-10.2); CREATININE FOR GFR 1.05 MG/DL (0.55-1.30); GLOMERULAR FILTRATION RATE 55.5 (>45); POTASSIUM SERUM 3.7 MEQ/L (3.5-5.1)
== END ==
LOC: M WUC 13:27
PROVIDERS: ATTEND Internal Medicine Cardiovascular Disease
DX: I49.3 Ventricular premature depolarization (principal)

== ENCOUNTER → 2022-04-18 | Outpatient (CLI) | payer MEDICARE | LOC: M PLALAB 12:24 | PROVIDERS: ATTEND Family Medicine | DX: M47.812 Spondylosis without myelopathy or radiculopathy, cervical region (principal) ==

== ENCOUNTER → 2022-05-13 | Outpatient (REF) | payer MEDICARE | LOC: M SFHCPLAZ 14:58 | PROVIDERS: ATTEND Physician Assistant | DX: H57.89 Other specified disorders of eye and adnexa (principal) ==

== ENCOUNTER → 2022-06-11 | Outpatient (CLI) | payer MEDICARE ==
[2022-06-11 11:30] LABS: BASO % 0.4 % (0.0-1.0); EOS # 0.4 10^3/uL (0.0-0.5); EOS % 3.8 % (0.0-3.0); HEMATOCRIT 38.7 % (36.0-47.0); HEMOGLOBIN 12.4 g/dl (12.0-15.5); LYMPH # 1.8 10^3/uL (1.5-5.0); LYMPH % 19.3 % (24.0-44.0); MEAN CORPUSCULAR VOLUME 90.4 fl (80.0-96.0); MONO # 0.9 10^3/uL (0.0-0.8); MONO % 9.4 % (2.0-8.0); NEUTROPHILS % 65.8 % (36.0-66.0); PLATELET COUNT, AUTOMATED 340 10^3/uL (150-450); RED BLOOD COUNT 4.28 10^6/uL (4.00-5.40); WHITE BLOOD COUNT 9.2 10^3/uL (4.0-10.0)
[2022-06-11 11:39] LABS: INR 0.94; PROTHROMBIN TIME 12.8 SECONDS (12.5-14.5)
[2022-06-11 11:40] LABS: PARTIAL THROMBOPLASTIN TIME 29.2 SECONDS (24.8-34.2)
[2022-06-11 12:14] LABS: ALBUMIN 3.5 GM/DL (3.2-5.2); ALT/SGPT 22 U/L (12-78); BILIRUBIN,TOTAL 0.5 MG/DL (0.2-1.0); BLOOD UREA NITROGEN 13 MG/DL (7-18); CALCIUM LEVEL 9.4 MG/DL (8.8-10.2); CARBON DIOXIDE LEVEL 29 MEQ/L (21-32); CHLORIDE LEVEL 100 MEQ/L (98-107); CHOLESTEROL LEVEL 128 MG/DL (<200); CHOLESTEROL RISK RATIO 3.282 (<5); CREATININE FOR GFR 0.74 MG/DL (0.55-1.30); GLOMERULAR FILTRATION RATE > 60.0 (>45); GLUCOSE, FASTING 93 MG/DL (70-100); HDL CHOLESTEROL 39 MG/DL (>40); LDL CHOLESTEROL 35 MG/DL (<100); MAGNESIUM LEVEL 1.8 MG/DL (1.8-2.4); NON-HDL-C 89 MG/DL; NT-PRO BNP 27 PG/ML (<125); SODIUM LEVEL 135 MEQ/L (136-145); TRIGLYCERIDES LEVEL 269 MG/DL (<150)
[2022-06-11 12:42] LABS: PTH INTACT 23.7 PG/ML (18.5-88.0); TOTAL 25(OH) VITAMIN D 77.3 NG/ML (30.0-100.0)
== END ==
LOC: M LAB 10:04
PROVIDERS: ATTEND Family Medicine
DX: K76.0 Fatty (change of) liver, not elsewhere classified (principal); I10 Essential (primary) hypertension; E55.9 Vitamin D deficiency, unspecified; D50.9 Iron deficiency anemia, unspecified; E78.5 Hyperlipidemia, unspecified; Z79.899 Other long term (current) drug therapy

== ENCOUNTER → 2022-06-11 | Outpatient (CLI) | payer MEDICARE | LOC: M WUC 09:29 | PROVIDERS: ATTEND Family Medicine | DX: K76.0 Fatty (change of) liver, not elsewhere classified (principal); I10 Essential (primary) hypertension; E55.9 Vitamin D deficiency, unspecified; D50.9 Iron deficiency anemia, unspecified ==

== ENCOUNTER → 2022-08-30 | Outpatient (REF) | payer MEDICARE ==
[2022-08-30 18:44] LABS: APPEARANCE, URINE MANUAL CLOUDY (CLEAR); BILIRUBIN, URINE MANUAL NEGATIVE (NEGATIVE); BLOOD URINE MANUAL POSITIVE (NEGATIVE); COLOR, URINE MANUAL YELLOW (YELLOW); GLUCOSE, URINE (UA) MANUAL NEGATIVE (NEGATIVE); KETONE, URINE MANUAL NEGATIVE (NEGATIVE); LEUKOCYTE ESTERASE, URINE MAN TRACE (NEGATIVE); NITRITE, URINE MANUAL NEGATIVE (NEGATIVE); PROTEIN, URINE MANUAL NEGATIVE (NEGATIVE); SPECIFIC GRAVITY,URINE MANUAL 1.005 (1.002-1.035); UROBILINOGEN, URINE MANUAL NORMAL (NORMAL)
[2022-08-30 19:00] LABS: RBC, URINE TNTC /hpf (0-3); SQUAMOUS EPITHELIAL CELL URINE SMALL AMOUNT /hpf (SMALL AMT)
[2022-08-30 19:01] LABS: BACTERIA, URINE NONE SEEN; HYALINE CAST, URINE NONE SEEN /lpf (0-1); MUCUS, URINE SMALL AMOUNT (NEGATIVE)
== END ==
LOC: M SFHCPLAZ 17:02
PROVIDERS: ATTEND Physician Assistant
DX: R31.9 Hematuria, unspecified (principal)

== ENCOUNTER → 2022-11-29 | Outpatient (CLI) | payer MEDICARE ==
[2022-11-29 18:44] LABS: BASO # 0.1 10^3/uL (0.0-0.2); BASO % 0.4 % (0.0-1.0); EOS # 0.2 10^3/uL (0.0-0.5); EOS % 1.4 % (0.0-3.0); HEMATOCRIT 39.2 % (36.0-47.0); HEMOGLOBIN 12.3 g/dl (12.0-15.5); LYMPH # 2.2 10^3/uL (1.5-5.0); LYMPH % 16.1 % (24.0-44.0); MEAN CORPUSCULAR HEMOGLOBIN 29.1 pg (27.0-33.0); MEAN CORPUSCULAR HGB CONC 31.4 g/dl (32.0-36.5); MEAN CORPUSCULAR VOLUME 92.7 fl (80.0-96.0); MONO # 1.3 10^3/uL (0.0-0.8); MONO % 9.4 % (2.0-8.0); NEUTROPHILS # 9.8 10^3/uL (1.5-8.5); PLATELET COUNT, AUTOMATED 464 10^3/uL (150-450); RED BLOOD COUNT 4.23 10^6/uL (4.00-5.40); WHITE BLOOD COUNT 13.5 10^3/uL (4.0-10.0)
[2022-11-29 18:45] LABS: ALBUMIN 3.4 G/DL (3.2-5.2); ALKALINE PHOSPHATASE 68 U/L (46-116); ALT/SGPT 20 U/L (7.0-40); AST/SGOT 12 U/L (<34); BILIRUBIN,TOTAL 0.5 MG/DL (0.3-1.2); BLOOD UREA NITROGEN 23 MG/DL (9-23); CALCIUM LEVEL 8.7 MG/DL (8.3-10.6); CARBON DIOXIDE LEVEL 30 MMOL/L (20-31); CHLORIDE LEVEL 101 MMOL/L (98-107); CREATININE FOR GFR 0.72 MG/DL (0.55-1.30); GLOMERULAR FILTRATION RATE > 60.0 (>45); GLUCOSE, FASTING 83 MG/DL (74-106); POTASSIUM SERUM 4.2 MMOL/L (3.5-5.1); SODIUM LEVEL 138 MMOL/L (136-145); TOTAL PROTEIN 6.6 G/DL (5.7-8.2)
== END ==
LOC: M PLALAB 15:14
PROVIDERS: ATTEND Family Medicine
DX: Z01.810 Encounter for preprocedural cardiovascular examination (principal); Z79.899 Other long term (current) drug therapy

== ENCOUNTER → 2022-12-02 | Outpatient (CLI) | payer MEDICARE ==
[2022-12-02 14:10] LABS: BASO % 0.3 % (0.0-1.0); EOS # 0.2 10^3/uL (0.0-0.5); EOS % 1.3 % (0.0-3.0); HEMATOCRIT 39.3 % (36.0-47.0); HEMOGLOBIN 12.6 g/dl (12.0-15.5); LYMPH # 1.7 10^3/uL (1.5-5.0); LYMPH % 12.8 % (24.0-44.0); MEAN CORPUSCULAR HEMOGLOBIN 29.2 pg (27.0-33.0); MEAN CORPUSCULAR HGB CONC 32.1 g/dl (32.0-36.5); MEAN CORPUSCULAR VOLUME 91.2 fl (80.0-96.0); MONO # 1.2 10^3/uL (0.0-0.8); MONO % 9.3 % (2.0-8.0); NEUTROPHILS # 9.7 10^3/uL (1.5-8.5); NEUTROPHILS % 75.8 % (36.0-66.0); PLATELET COUNT, AUTOMATED 436 10^3/uL (150-450); RED BLOOD COUNT 4.31 10^6/uL (4.00-5.40); WHITE BLOOD COUNT 12.9 10^3/uL (4.0-10.0)
[2022-12-02 14:13] LABS: APPEARANCE, URINE CLEAR (CLEAR); BACTERIA, URINE AUTO NEGATIVE (NEGATIVE); BILIRUBIN, URINE AUTO NEGATIVE (NEGATIVE); BLOOD, URINE BLOOD 1+ (NEGATIVE); COLOR, URINE AMBER (YELLOW); GLUCOSE, URINE (UA) AUTO NEGATIVE (NEGATIVE); KETONE, URINE AUTO TRACE mg/dL (NEGATIVE); LEUKOCYTE ESTERASE, URINE AUTO TRACE (NEGATIVE); NITRITE, URINE AUTO POSITIVE (NEGATIVE); PROTEIN, URINE AUTO NEGATIVE (NEGATIVE); RBC, URINE AUTO 55 /HPF (0-3); SPECIFIC GRAVITY URINE AUTO 1.013 (1.002-1.035); SQUAMOUS EPITHELIAL CELL UR AU 1 /HPF (0-6); WBC, URINE AUTO 17 /HPF (0-3)
[2022-12-02 14:23] LABS: ERYTHROCYTE SEDIMENTATION RATE 26 mm/hr (0-30)
== END ==
LOC: M LAB 12:31
PROVIDERS: ATTEND Family Medicine
DX: D72.829 Elevated white blood cell count, unspecified (principal); Z79.899 Other long term (current) drug therapy

== ENCOUNTER → 2022-12-03 | Outpatient (CLI) | payer MEDICARE ==
[~2022-12-03] MED LIST changes: +ISOVUE-370 76% 100ML VIAL As Ordered ONE
== END ==
LOC: M RAD 09:14
PROVIDERS: ATTEND Family Medicine
DX: N39.0 Urinary tract infection, site not specified (principal); R31.0 Gross hematuria
CPT/HCPCS: 74178; Q9967

== ENCOUNTER → 2022-12-20 | Outpatient (CLI) | payer MEDICARE ==
[~2022-12-20] MED LIST changes: -ISOVUE-370 76% 100ML VIAL As Ordered ONE
[2022-12-20 13:46] LABS: BASO # 0.1 10^3/uL (0.0-0.2); BASO % 0.4 % (0.0-1.0); EOS # 0.2 10^3/uL (0.0-0.5); EOS % 1.6 % (0.0-3.0); HEMOGLOBIN 11.8 g/dl (12.0-15.5); LYMPH # 1.6 10^3/uL (1.5-5.0); LYMPH % 13.1 % (24.0-44.0); MEAN CORPUSCULAR HEMOGLOBIN 28.7 pg (27.0-33.0); MEAN CORPUSCULAR HGB CONC 31.1 g/dl (32.0-36.5); MEAN CORPUSCULAR VOLUME 92.5 fl (80.0-96.0); MONO # 0.9 10^3/uL (0.0-0.8); NEUTROPHILS # 9.4 10^3/uL (1.5-8.5); NEUTROPHILS % 77.1 % (36.0-66.0); PLATELET COUNT, AUTOMATED 422 10^3/uL (150-450); RED BLOOD COUNT 4.11 10^6/uL (4.00-5.40); WHITE BLOOD COUNT 12.3 10^3/uL (4.0-10.0)
[2022-12-20 14:04] LABS: ALBUMIN 3.4 G/DL (3.2-5.2); ALKALINE PHOSPHATASE 66 U/L (46-116); ALT/SGPT 18 U/L (7.0-40); AST/SGOT 12 U/L (<34); BILIRUBIN,TOTAL 0.6 MG/DL (0.3-1.2); BLOOD UREA NITROGEN 17 MG/DL (9-23); CALCIUM LEVEL 8.9 MG/DL (8.3-10.6); CARBON DIOXIDE LEVEL 31 MMOL/L (20-31); CHLORIDE LEVEL 99 MMOL/L (98-107); CHOLESTEROL LEVEL 136 MG/DL (<200); CHOLESTEROL RISK RATIO 2.71 (<5); CREATININE FOR GFR 0.59 MG/DL (0.55-1.30); GLOMERULAR FILTRATION RATE > 60.0 (>45); GLUCOSE, FASTING 91 MG/DL (74-106); HDL CHOLESTEROL 50.1 MG/DL (>40); LDL CHOLESTEROL 46.1 MG/DL (<100); NON-HDL-C 85.9 MG/DL; POTASSIUM SERUM 4.3 MMOL/L (3.5-5.1); SODIUM LEVEL 136 MMOL/L (136-145); TOTAL PROTEIN 6.3 G/DL (5.7-8.2); TRIGLYCERIDES LEVEL 199 MG/DL (<150)
[2022-12-20 14:06] LABS: FERRITIN 14.7 NG/ML (7.3-270.7); HEMOGLOBIN A1c 5.2 % (4.0-6.0)
== END ==
LOC: M PLALAB 10:10
PROVIDERS: ATTEND Family Medicine
DX: E11.9 Type 2 diabetes mellitus without complications (principal)

== ENCOUNTER → 2023-05-02 | Outpatient (CLI) | payer MEDICARE ==
[~2023-05-02] MED LIST changes: +ISOVUE-300 61% 100ML VIAL As Ordered ONE; +methylPREDNISolone 80MG/ML SUSP 1ML VIAL As Ordered ONE
== END ==
LOC: M RAD 14:36
PROVIDERS: ATTEND Physician Assistant
DX: M25.511 Pain in right shoulder (principal)
CPT/HCPCS: 20610; 77002; J0665; J1040; Q9967

== ENCOUNTER → 2023-05-05 | Outpatient (CLI) | payer MEDICARE ==
[~2023-05-05] MED LIST changes: -ISOVUE-300 61% 100ML VIAL As Ordered ONE; -methylPREDNISolone 80MG/ML SUSP 1ML VIAL As Ordered ONE
[2023-05-05 13:32] LABS: BASO # 0.1 10^3/uL (0.0-0.2); BASO % 0.4 % (0.0-1.0); EOS # 0.2 10^3/uL (0.0-0.5); EOS % 0.9 % (0.0-3.0); HEMATOCRIT 39.9 % (36.0-47.0); HEMOGLOBIN 12.2 g/dl (12.0-15.5); LYMPH # 2.7 10^3/uL (1.5-5.0); LYMPH % 16.5 % (24.0-44.0); MEAN CORPUSCULAR HEMOGLOBIN 27.5 pg (27.0-33.0); MEAN CORPUSCULAR HGB CONC 30.6 g/dl (32.0-36.5); MEAN CORPUSCULAR VOLUME 90.1 fl (80.0-96.0); MONO % 9.5 % (2.0-8.0); NEUTROPHILS # 11.7 10^3/uL (1.5-8.5); NEUTROPHILS % 71.9 % (36.0-66.0); PLATELET COUNT, AUTOMATED 429 10^3/uL (150-450); RED BLOOD COUNT 4.43 10^6/uL (4.00-5.40); WHITE BLOOD COUNT 16.3 10^3/uL (4.0-10.0)
[2023-05-05 13:41] LABS: HEMOGLOBIN A1c 5.3 % (4.0-6.0)
[2023-05-05 13:58] LABS: ALBUMIN 3.5 G/DL (3.2-5.2); ALKALINE PHOSPHATASE 73 U/L (46-116); ALT/SGPT 17 U/L (7.0-40); AST/SGOT 11 U/L (<34); BILIRUBIN,TOTAL 0.5 MG/DL (0.3-1.2); BLOOD UREA NITROGEN 27 MG/DL (9-23); CALCIUM LEVEL 8.9 MG/DL (8.3-10.6); CARBON DIOXIDE LEVEL 34 MMOL/L (20-31); CHLORIDE LEVEL 98 MMOL/L (98-107); GLOMERULAR FILTRATION RATE > 60.0 (>39); GLUCOSE, FASTING 91 MG/DL (74-106); POTASSIUM SERUM 3.8 MMOL/L (3.5-5.1); SODIUM LEVEL 139 MMOL/L (136-145); TOTAL PROTEIN 6.5 G/DL (5.7-8.2)
[2023-05-05 13:59] LABS: FERRITIN 10.4 NG/ML (7.3-270.7)
[2023-05-05 14:35] LABS: MONO # 1.6 10^3/uL (0.0-0.8)
[2023-05-06 14:08] LABS: H PYLORI SERUM QUANT IgG ABY 0.22 (0.00-0.79); INSULIN LEVEL 24.4 uIU/mL (2.6-24.9); TISSUE TRANSGLUTAMINASE IgA <2 U/mL (0-3)
== END ==
LOC: M WUC 09:23
PROVIDERS: ATTEND Family Medicine
DX: D50.9 Iron deficiency anemia, unspecified (principal); I10 Essential (primary) hypertension; E11.9 Type 2 diabetes mellitus without complications

== ENCOUNTER 2023-05-23 10:19 | Outpatient (CLI) | payer MEDICARE ==
[~2023-05-23] VITALS: Ht 152.4 cm; Wt 75.5 kg
[~2023-05-23 10:19] MED LIST changes: +ALBUTEROL SULFATE 2.5MG/0.5ML INH NEB SOLN INH PRN; +EPINEPHrine INJ 1 MG/ML 1ML AMP IM PRN; +NS 1,000 ML IV SCH; +diphenhydrAMINE 50MG/ML VIAL IV PRN; +methylPREDNISolone 125MG 2ML VIAL IV PRN
[2023-05-23 10:25] VITALS: BP 174/74; O2SAT 99
[2023-05-23] MEDS ORDERED: FERRIC CARBOXYMALTOSE INJ 750 MG in NS 250 ML (>50kg) IV ONE ×3 (10:35)
[2023-05-23 11:20] VITALS: BP 132/70; O2SAT 98
[2023-05-23 12:10] VITALS: BP 163/93; O2SAT 98
== END 2023-05-23 12:10 | disposition home or self-care (01) ==
LOC: M INFU 10:19
PROVIDERS: ATTEND Family Medicine
DX: D50.9 Iron deficiency anemia, unspecified (principal); Z88.1 Allergy status to other antibiotic agents; Z88.4 Allergy status to anesthetic agent; Z88.8 Allergy status to other drugs, medicaments and biological substances
CPT/HCPCS: 96365; J1439

== ENCOUNTER → 2023-06-20 | Outpatient (CLI) | payer MEDICARE ==
[~2023-06-20] MED LIST changes: -ALBUTEROL SULFATE 2.5MG/0.5ML INH NEB SOLN INH PRN; -EPINEPHrine INJ 1 MG/ML 1ML AMP IM PRN; -NS 1,000 ML IV SCH; -diphenhydrAMINE 50MG/ML VIAL IV PRN; -methylPREDNISolone 125MG 2ML VIAL IV PRN
== END ==
LOC: M PLARAD 15:36
PROVIDERS: ATTEND Family Medicine
DX: M75.101 Unspecified rotator cuff tear or rupture of right shoulder, not specified as traumatic (principal)

== ENCOUNTER → 2023-07-17 | Outpatient (REF) | payer MEDICARE ==
[2023-07-17 15:04] LABS: AMORPHOUS SEDIMENT MODERATE (NEGATIVE); APPEARANCE, URINE HAZY (CLEAR); BACTERIA, URINE AUTO 1+ (NEGATIVE); BILIRUBIN, URINE AUTO NEGATIVE (NEGATIVE); BLOOD, URINE BLOOD 1+ (NEGATIVE); COLOR, URINE RED (YELLOW); GLUCOSE, URINE (UA) AUTO NEGATIVE (NEGATIVE); KETONE, URINE AUTO NEGATIVE (NEGATIVE); LEUKOCYTE ESTERASE, URINE AUTO NEGATIVE (NEGATIVE); MUCUS, URINE LARGE (NEGATIVE); NITRITE, URINE AUTO POSITIVE (NEGATIVE); PROTEIN, URINE AUTO 1+ mg/dL (NEGATIVE); RBC, URINE AUTO 6 /HPF (0-3); SQUAMOUS EPITHELIAL CELL UR AU 1 /HPF (0-6); WBC, URINE AUTO 22 /HPF (0-3)
== END ==
LOC: M SMT 12:42
PROVIDERS: ATTEND Specialist
DX: R31.0 Gross hematuria (principal)

== ENCOUNTER → 2023-08-04 | Outpatient (CLI) | payer MEDICARE ==
[2023-08-04 17:01] LABS: BASO # 0.1 10^3/uL (0.0-0.2); BASO % 0.5 % (0.0-1.0); EOS # 0.2 10^3/uL (0.0-0.5); EOS % 2.3 % (0.0-3.0); HEMATOCRIT 40.9 % (36.0-47.0); HEMOGLOBIN 13.4 g/dl (12.0-15.5); LYMPH % 21.1 % (24.0-44.0); MEAN CORPUSCULAR HEMOGLOBIN 30.4 pg (27.0-33.0); MEAN CORPUSCULAR HGB CONC 32.8 g/dl (32.0-36.5); MEAN CORPUSCULAR VOLUME 92.7 fl (80.0-96.0); MONO # 0.8 10^3/uL (0.0-0.8); MONO % 8.1 % (2.0-8.0); NEUTROPHILS # 6.3 10^3/uL (1.5-8.5); NEUTROPHILS % 67.6 % (36.0-66.0); PLATELET COUNT, AUTOMATED 392 10^3/uL (150-450); RED BLOOD COUNT 4.41 10^6/uL (4.00-5.40); WHITE BLOOD COUNT 9.3 10^3/uL (4.0-10.0)
[2023-08-04 17:05] LABS: ALBUMIN 3.8 G/DL (3.2-5.2); ALKALINE PHOSPHATASE 60 U/L (46-116); ALT/SGPT 17 U/L (7.0-40); AST/SGOT 12 U/L (<34); BILIRUBIN,TOTAL 0.8 MG/DL (0.3-1.2); BLOOD UREA NITROGEN 19 MG/DL (9-23); CALCIUM LEVEL 9.5 MG/DL (8.3-10.6); CARBON DIOXIDE LEVEL 30 MMOL/L (20-31); CHLORIDE LEVEL 97 MMOL/L (98-107); CHOLESTEROL LEVEL 146 MG/DL (<200); CHOLESTEROL RISK RATIO 3.49 (<5); GLOMERULAR FILTRATION RATE > 60.0 (>39); GLUCOSE, FASTING 108 MG/DL (74-106); HDL CHOLESTEROL 41.8 MG/DL (>40); LDL CHOLESTEROL 36.8 MG/DL (<100); MAGNESIUM LEVEL 1.6 MG/DL (1.8-2.4); NON-HDL-C 104.2 MG/DL; POTASSIUM SERUM 4.4 MMOL/L (3.5-5.1); SODIUM LEVEL 133 MMOL/L (136-145); TOTAL PROTEIN 6.6 G/DL (5.7-8.2); TRIGLYCERIDES LEVEL 337 MG/DL (<150)
[2023-08-04 17:07] LABS: FERRITIN 76.3 NG/ML (7.3-270.7)
[2023-08-04 17:27] LABS: CREATININE, URINE 161.7 MG/DL; MAU/CREAT RATIO 6.1 MCG/MG (0.0-30.0)
[2023-08-04 17:31] LABS: HEMOGLOBIN A1c 5.5 % (4.0-6.0)
[2023-08-05 15:20] LABS: JAK2 MUTATIONS FOR PATH SENDOU See Pathology Report
== END ==
LOC: M WUC 10:15
PROVIDERS: ATTEND Family Medicine
DX: E11.9 Type 2 diabetes mellitus without complications (principal); I10 Essential (primary) hypertension; E78.5 Hyperlipidemia, unspecified; D50.9 Iron deficiency anemia, unspecified; D72.829 Elevated white blood cell count, unspecified; I50.32 Chronic diastolic (congestive) heart failure

== ENCOUNTER → 2023-08-14 | Outpatient (REF) | payer MEDICARE | LOC: M SFHCPLAZ 18:46 | PROVIDERS: ATTEND Student in an Organized Health Care Education/Training Program | DX: J02.9 Acute pharyngitis, unspecified (principal); R09.89 Other specified symptoms and signs involving the circulatory and respiratory systems ==

== ENCOUNTER → 2023-08-21 | Outpatient (REF) | payer MEDICARE ==
[2023-08-21 19:37] LABS: BLOOD UREA NITROGEN 16 MG/DL (9-23); CALCIUM LEVEL 9.1 MG/DL (8.3-10.6); CARBON DIOXIDE LEVEL 30 MMOL/L (20-31); CHLORIDE LEVEL 100 MMOL/L (98-107); CREATININE FOR GFR 0.54 MG/DL (0.55-1.30); GLOMERULAR FILTRATION RATE > 60.0 (>39); GLUCOSE, FASTING 100 MG/DL (74-106); POTASSIUM SERUM 4.7 MMOL/L (3.5-5.1); SODIUM LEVEL 136 MMOL/L (136-145)
== END ==
LOC: M LABWUC 18:03
PROVIDERS: ATTEND Student in an Organized Health Care Education/Training Program
DX: J02.9 Acute pharyngitis, unspecified (principal)

== ENCOUNTER → 2023-09-02 | Outpatient (REF) | payer MEDICARE ==
[2023-09-02 13:36] LABS: APPEARANCE, URINE CLEAR (CLEAR); BACTERIA, URINE AUTO NEGATIVE (NEGATIVE); BILIRUBIN, URINE AUTO NEGATIVE (NEGATIVE); BLOOD, URINE BLOOD NEGATIVE (NEGATIVE); COLOR, URINE STRAW (YELLOW); GLUCOSE, URINE (UA) AUTO NEGATIVE (NEGATIVE); KETONE, URINE AUTO NEGATIVE (NEGATIVE); LEUKOCYTE ESTERASE, URINE AUTO NEGATIVE (NEGATIVE); NITRITE, URINE AUTO NEGATIVE (NEGATIVE); PROTEIN, URINE AUTO NEGATIVE (NEGATIVE); RBC, URINE AUTO 0 /HPF (0-3); SPECIFIC GRAVITY URINE AUTO 1.005 (1.002-1.035); SQUAMOUS EPITHELIAL CELL UR AU 0 /HPF (0-6); UROBILINOGEN, URINE AUTO 0.2 mg/dL (0.0-2.0); WBC, URINE AUTO 2 /HPF (0-3)
== END ==
LOC: M SFHCPLAZ 13:06
PROVIDERS: ATTEND Family Medicine
DX: R30.0 Dysuria (principal)

== ENCOUNTER → 2023-12-31 | Outpatient (CLI) | payer MEDICARE ==
[2023-12-31 12:25] LABS: BASO # 0.1 10^3/uL (0.0-0.2); BASO % 0.7 % (0.0-1.0); EOS # 0.3 10^3/uL (0.0-0.5); EOS % 3.5 % (0.0-3.0); HEMATOCRIT 41.5 % (36.0-47.0); HEMOGLOBIN 13.5 g/dl (12.0-15.5); LYMPH # 1.9 10^3/uL (1.5-5.0); LYMPH % 21.9 % (24.0-44.0); MEAN CORPUSCULAR HEMOGLOBIN 29.6 pg (27.0-33.0); MEAN CORPUSCULAR HGB CONC 32.5 g/dl (32.0-36.5); MONO # 0.9 10^3/uL (0.0-0.8); MONO % 10.2 % (2.0-8.0); NEUTROPHILS # 5.4 10^3/uL (1.5-8.5); NEUTROPHILS % 63.2 % (36.0-66.0); PLATELET COUNT, AUTOMATED 320 10^3/uL (150-450); RED BLOOD COUNT 4.56 10^6/uL (4.00-5.40); WHITE BLOOD COUNT 8.5 10^3/uL (4.0-10.0)
[2023-12-31 12:49] LABS: C REACTIVE PROTEIN QUANTITATIV < 0.40 MG/DL (<1.0)
[2023-12-31 12:50] LABS: HEMOGLOBIN A1c 5.8 % (4.0-6.0)
[2023-12-31 12:51] LABS: ALBUMIN 3.6 G/DL (3.2-5.2); ALKALINE PHOSPHATASE 71 U/L (46-116); ALT/SGPT 19 U/L (7.0-40); AST/SGOT 16 U/L (<34); BILIRUBIN,TOTAL 0.6 MG/DL (0.3-1.2); BLOOD UREA NITROGEN 21 MG/DL (9-23); CALCIUM LEVEL 9.1 MG/DL (8.3-10.6); CARBON DIOXIDE LEVEL 29 MMOL/L (20-31); CHLORIDE LEVEL 100 MMOL/L (98-107); CHOLESTEROL LEVEL 156 MG/DL (<200); CHOLESTEROL RISK RATIO 3.48 (<5); CREATININE FOR GFR 0.68 MG/DL (0.55-1.30); FERRITIN 33.2 NG/ML (7.3-270.7); FREE T4 1.31 NG/DL (0.89-1.76); GLOMERULAR FILTRATION RATE > 60.0 (>39); GLUCOSE, FASTING 94 MG/DL (74-106); HDL CHOLESTEROL 44.8 MG/DL (>40); LDL CHOLESTEROL 63.4 MG/DL (<100); NON-HDL-C 111.2 MG/DL; SODIUM LEVEL 138 MMOL/L (136-145); THYROID STIMULATING HORMONE 1.613 uIU/ML (0.55-4.78); TOTAL PROTEIN 6.6 G/DL (5.7-8.2); TRIGLYCERIDES LEVEL 239 MG/DL (<150)
== END ==
LOC: M WUC 08:33
PROVIDERS: ATTEND Family Medicine
DX: E11.9 Type 2 diabetes mellitus without complications (principal); I10 Essential (primary) hypertension; D50.9 Iron deficiency anemia, unspecified; E78.5 Hyperlipidemia, unspecified; D72.829 Elevated white blood cell count, unspecified

== ENCOUNTER → 2024-01-08 | Outpatient (CLI) | payer MEDICARE | LOC: M WUC 09:18 | PROVIDERS: ATTEND Family Medicine | DX: M47.816 Spondylosis without myelopathy or radiculopathy, lumbar region (principal) ==

== ENCOUNTER → 2024-04-29 | Outpatient (CLI) | payer MEDICARE | LOC: M WHC 16:50 | PROVIDERS: ATTEND Student in an Organized Health Care Education/Training Program | DX: M85.80 Other specified disorders of bone density and structure, unspecified site (principal) ==

== ENCOUNTER → 2024-05-10 | Outpatient (REF) | payer MEDICARE | LOC: M SFHCPLAZ 12:07 | PROVIDERS: ATTEND Physician Assistant | DX: R19.7 Diarrhea, unspecified (principal) ==

== ENCOUNTER → 2024-05-13 | Outpatient (CLI) | payer MEDICARE | LOC: M WHC 13:47 | PROVIDERS: ATTEND Student in an Organized Health Care Education/Training Program | DX: M81.0 Age-related osteoporosis without current pathological fracture (principal) ==

== ENCOUNTER → 2024-05-13 | Outpatient (CLI) | payer MEDICARE ==
[2024-05-13 18:24] LABS: URIC ACID 6.4 MG/DL (3.1-7.8)
[2024-05-13 18:27] LABS: C REACTIVE PROTEIN QUANTITATIV < 0.40 MG/DL (<1.0)
[2024-05-13 18:28] LABS: RHEUMATOID FACTOR QUANT 13.6 IU/ML (<14)
== END ==
LOC: M PLALAB 14:41
PROVIDERS: ATTEND Student in an Organized Health Care Education/Training Program
DX: M47.812 Spondylosis without myelopathy or radiculopathy, cervical region (principal)

== ENCOUNTER → 2024-06-15 | Outpatient (CLI) | payer MEDICARE ==
[2024-06-15 10:50] LABS: BASO % 0.3 % (0.0-1.0); EOS # 0.2 10^3/uL (0.0-0.5); EOS % 1.9 % (0.0-3.0); HEMATOCRIT 41.4 % (36.0-47.0); LYMPH # 1.3 10^3/uL (1.5-5.0); LYMPH % 14.2 % (24.0-44.0); MEAN CORPUSCULAR HGB CONC 33.8 g/dl (32.0-36.5); MEAN CORPUSCULAR VOLUME 91.8 fl (80.0-96.0); MONO # 0.8 10^3/uL (0.0-0.8); MONO % 9.1 % (2.0-8.0); NEUTROPHILS # 6.7 10^3/uL (1.5-8.5); NEUTROPHILS % 74.2 % (36.0-66.0); PLATELET COUNT, AUTOMATED 396 10^3/uL (150-450); RED BLOOD COUNT 4.51 10^6/uL (4.00-5.40)
[2024-06-15 11:06] LABS: HEMOGLOBIN A1c 5.5 % (4.0-6.0)
[2024-06-15 11:21] LABS: CREATININE, URINE 191.4 MG/DL; MAU/CREAT RATIO 2.6 MCG/MG (0.0-30.0)
[2024-06-15 11:25] LABS: ALBUMIN 3.7 G/DL (3.2-5.2); ALKALINE PHOSPHATASE 66 U/L (35-104); ALT/SGPT 18 U/L (7.0-40); AST/SGOT 11 U/L (<34); BILIRUBIN,TOTAL 0.9 MG/DL (0.3-1.2); BLOOD UREA NITROGEN 18 MG/DL (9-23); CALCIUM LEVEL 9.2 MG/DL (8.3-10.6); CARBON DIOXIDE LEVEL 31 MMOL/L (20-31); CHLORIDE LEVEL 101 MMOL/L (98-107); CREATININE FOR GFR 0.64 MG/DL (0.55-1.30); FERRITIN 45.2 NG/ML (7.3-270.7); FREE T4 1.79 NG/DL (0.89-1.76); GLOMERULAR FILTRATION RATE > 60.0 (>39); GLUCOSE, FASTING 121 MG/DL (74-106); MAGNESIUM LEVEL 1.6 MG/DL (1.8-2.4); POTASSIUM SERUM 3.5 MMOL/L (3.5-5.1); SODIUM LEVEL 137 MMOL/L (136-145); TOTAL PROTEIN 6.7 G/DL (5.7-8.2)
[2024-06-15 11:26] LABS: TOTAL 25(OH) VITAMIN D 96.4 NG/ML (20.0-100.0)
[2024-06-15 11:47] LABS: THYROID STIMULATING HORMONE 1.353 uIU/ML (0.55-4.78)
== END ==
LOC: M WUC 08:13
PROVIDERS: ATTEND Family Medicine
DX: I10 Essential (primary) hypertension (principal); D50.9 Iron deficiency anemia, unspecified; E55.9 Vitamin D deficiency, unspecified; E11.9 Type 2 diabetes mellitus without complications; E78.5 Hyperlipidemia, unspecified

== ENCOUNTER → 2024-08-06 | Outpatient (REF) | payer MEDICARE | LOC: M SFHCPLAZ 09:45 | PROVIDERS: ATTEND Family Medicine | DX: K27.9 Peptic ulcer, site unspecified, unspecified as acute or chronic, without hemorrhage or perforation (principal) ==

== ENCOUNTER → 2024-08-09 | Outpatient (CLI) | payer MEDICARE ==
[~2024-08-09] MED LIST changes: +GASTROGRAFIN SOLUTION 30ML As Ordered ONE; +ISOVUE-370 76% 100ML VIAL As Ordered ONE
[2024-08-09 09:34] LABS: BASO % 0.3 % (0.0-1.0); EOS # 0.1 10^3/uL (0.0-0.5); EOS % 0.7 % (0.0-3.0); HEMATOCRIT 42.8 % (36.0-47.0); HEMOGLOBIN 14.8 g/dl (12.0-15.5); LYMPH # 1.2 10^3/uL (1.5-5.0); LYMPH % 12.5 % (24.0-44.0); MEAN CORPUSCULAR HEMOGLOBIN 30.5 pg (27.0-33.0); MEAN CORPUSCULAR HGB CONC 34.6 g/dl (32.0-36.5); MEAN CORPUSCULAR VOLUME 88.1 fl (80.0-96.0); MONO # 0.7 10^3/uL (0.0-0.8); MONO % 7.6 % (2.0-8.0); NEUTROPHILS # 7.4 10^3/uL (1.5-8.5); NEUTROPHILS % 78.5 % (36.0-66.0); PLATELET COUNT, AUTOMATED 430 10^3/uL (150-450); RED BLOOD COUNT 4.86 10^6/uL (4.00-5.40); WHITE BLOOD COUNT 9.4 10^3/uL (4.0-10.0)
[2024-08-09 10:10] LABS: C REACTIVE PROTEIN QUANTITATIV < 0.50 MG/DL (<1.0)
[2024-08-09 10:11] LABS: ALBUMIN 3.7 G/DL (3.2-5.2); ALKALINE PHOSPHATASE 60 U/L (35-104); ALT/SGPT 18 U/L (7.0-40); AST/SGOT 16 U/L (<34); BILIRUBIN,TOTAL 0.9 MG/DL (0.3-1.2); BLOOD UREA NITROGEN 14 MG/DL (9-23); CALCIUM LEVEL 9.8 MG/DL (8.3-10.6); CARBON DIOXIDE LEVEL 32 MMOL/L (20-31); CHLORIDE LEVEL 93 MMOL/L (98-107); CREATININE FOR GFR 0.56 MG/DL (0.55-1.30); ERYTHROCYTE SEDIMENTATION RATE 26 mm/hr (0-30); GLOMERULAR FILTRATION RATE > 60.0 (>39); GLUCOSE, FASTING 141 MG/DL (74-106); POTASSIUM SERUM 3.3 MMOL/L (3.5-5.1); SODIUM LEVEL 135 MMOL/L (136-145); TOTAL PROTEIN 7.4 G/DL (5.7-8.2)
[2024-08-09 10:12] LABS: CARCINOEMBRYONIC ANTIGEN < 2.0 NG/ML (<2.5); FERRITIN 56.2 NG/ML (7.3-270.7)
[2024-08-12 17:07] LABS: TISSUE TRANSGLUTAMINASE IgA < 1.0 U/mL (<15.0)
[2024-08-13 10:32] LABS: SOLUBLE TRANSFERRIN RECEPTOR 1.21 mg/L (0.76-1.76)
== END ==
LOC: M RAD 08:41
PROVIDERS: ATTEND Family Medicine
DX: K56.699 Other intestinal obstruction unspecified as to partial versus complete obstruction (principal); R19.7 Diarrhea, unspecified; K27.9 Peptic ulcer, site unspecified, unspecified as acute or chronic, without hemorrhage or perforation; K57.30 Diverticulosis of large intestine without perforation or abscess without bleeding; K76.0 Fatty (change of) liver, not elsewhere classified; R16.0 Hepatomegaly, not elsewhere classified; C50.919 Malignant neoplasm of unspecified site of unspecified female breast; R10.30 Lower abdominal pain, unspecified
CPT/HCPCS: 36415; 74177; 80053; 82378; 82653; 82728; 83993; 84238; 85025; 85652; 86140; 86304; 86364; 87507; Q9963; Q9967

== ENCOUNTER → 2024-09-22 | Outpatient (CLI) | payer MEDICARE ==
[~2024-09-22] MED LIST changes: -GASTROGRAFIN SOLUTION 30ML As Ordered ONE; -ISOVUE-370 76% 100ML VIAL As Ordered ONE
[2024-09-22 12:07] LABS: BASO % 0.2 % (0.0-1.0); EOS # 0.1 10^3/uL (0.0-0.5); EOS % 1.1 % (0.0-3.0); HEMATOCRIT 41.3 % (36.0-47.0); HEMOGLOBIN 13.7 g/dl (12.0-15.5); LYMPH # 1.2 10^3/uL (1.5-5.0); LYMPH % 11.9 % (24.0-44.0); MEAN CORPUSCULAR HEMOGLOBIN 30.8 pg (27.0-33.0); MEAN CORPUSCULAR HGB CONC 33.2 g/dl (32.0-36.5); MEAN CORPUSCULAR VOLUME 92.8 fl (80.0-96.0); MONO # 0.8 10^3/uL (0.0-0.8); MONO % 8.4 % (2.0-8.0); NEUTROPHILS # 7.6 10^3/uL (1.5-8.5); NEUTROPHILS % 78.1 % (36.0-66.0); PLATELET COUNT, AUTOMATED 403 10^3/uL (150-450); RED BLOOD COUNT 4.45 10^6/uL (4.00-5.40); WHITE BLOOD COUNT 9.8 10^3/uL (4.0-10.0)
[2024-09-22 12:18] LABS: ERYTHROCYTE SEDIMENTATION RATE 19 mm/hr (0-30)
[2024-09-22 12:46] LABS: C REACTIVE PROTEIN QUANTITATIV < 0.50 MG/DL (<1.0)
[2024-09-22 12:56] LABS: ALBUMIN 3.4 G/DL (3.2-5.2); ALKALINE PHOSPHATASE 75 U/L (35-104); ALT/SGPT 17 U/L (7.0-40); AST/SGOT 13 U/L (<34); BLOOD UREA NITROGEN 15 MG/DL (9-23); CALCIUM LEVEL 8.7 MG/DL (8.3-10.6); CARBON DIOXIDE LEVEL 31 MMOL/L (20-31); CHLORIDE LEVEL 96 MMOL/L (98-107); CREATININE FOR GFR 0.55 MG/DL (0.55-1.30); FERRITIN 34.2 NG/ML (7.3-270.7); GLOMERULAR FILTRATION RATE > 60.0 (>39); GLUCOSE, FASTING 94 MG/DL (74-106); POTASSIUM SERUM 3.9 MMOL/L (3.5-5.1); SODIUM LEVEL 137 MMOL/L (136-145); TOTAL PROTEIN 6.6 G/DL (5.7-8.2)
== END ==
LOC: M WUC 08:47
PROVIDERS: ATTEND Family Medicine
DX: K27.9 Peptic ulcer, site unspecified, unspecified as acute or chronic, without hemorrhage or perforation (principal); R19.7 Diarrhea, unspecified

== ENCOUNTER → 2024-10-28 | Outpatient (CLI) | payer MEDICARE ==
[~2024-10-28] MED LIST changes: +PROHANCE 279.3MG/ML 15ML VIAL ONE
== END ==
LOC: M PLAIMG 08:50
PROVIDERS: ATTEND Physician Assistant Medical
DX: H90.3 Sensorineural hearing loss, bilateral (principal)
CPT/HCPCS: 70553; A9576

== ENCOUNTER → 2024-12-28 | Outpatient (CLI) | payer MEDICARE ==
[~2024-12-28] MED LIST changes: -AMBI5TAB PO; -PROHANCE 279.3MG/ML 15ML VIAL ONE; +ZOLP-532 PO
[2024-12-28 13:30] LABS: BASO % 0.5 % (0.0-1.0); EOS # 0.2 10^3/uL (0.0-0.5); EOS % 3.2 % (0.0-3.0); HEMATOCRIT 41.7 % (36.0-47.0); HEMOGLOBIN 13.5 g/dl (12.0-15.5); LYMPH # 1.6 10^3/uL (1.5-5.0); LYMPH % 21.1 % (24.0-44.0); MEAN CORPUSCULAR HEMOGLOBIN 29.9 pg (27.0-33.0); MEAN CORPUSCULAR HGB CONC 32.4 g/dl (32.0-36.5); MEAN CORPUSCULAR VOLUME 92.5 fl (80.0-96.0); MONO # 0.8 10^3/uL (0.0-0.8); MONO % 10.8 % (2.0-8.0); NEUTROPHILS # 4.8 10^3/uL (1.5-8.5); PLATELET COUNT, AUTOMATED 323 10^3/uL (150-450); RED BLOOD COUNT 4.51 10^6/uL (4.00-5.40); WHITE BLOOD COUNT 7.6 10^3/uL (4.0-10.0)
[2024-12-28 13:56] LABS: ALBUMIN 3.4 G/DL (3.2-5.2); ALKALINE PHOSPHATASE 78 U/L (35-104); ALT/SGPT 18 U/L (7.0-40); AST/SGOT 13 U/L (<34); BILIRUBIN,TOTAL 0.6 MG/DL (0.3-1.2); BLOOD UREA NITROGEN 18 MG/DL (9-23); CALCIUM LEVEL 8.6 MG/DL (8.3-10.6); CARBON DIOXIDE LEVEL 29 MMOL/L (20-31); CHLORIDE LEVEL 102 MMOL/L (98-107); CHOLESTEROL LEVEL 140 MG/DL (<200); CREATININE FOR GFR 0.61 MG/DL (0.55-1.30); GLOMERULAR FILTRATION RATE > 90.0 (>39); GLUCOSE, FASTING 94 MG/DL (74-106); HDL CHOLESTEROL 49.9 MG/DL (>40); IRON (FE) 66 UG/DL (50-170); LDL CHOLESTEROL 50.5 MG/DL (<100); NON-HDL-C 90.1 MG/DL; PERCENT SATURATION 19.1 % (13.2-45.0); SODIUM LEVEL 137 MMOL/L (136-145); THYROID STIMULATING HORMONE 1.684 uIU/ML (0.55-4.78); TOTAL IRON BINDING CAPACITY 345 UG/DL (250-425); TOTAL PROTEIN 6.5 G/DL (5.7-8.2); TRIGLYCERIDES LEVEL 198 MG/DL (<150)
[2024-12-28 13:57] LABS: VITAMIN B12 LEVEL 374 PG/ML (211-911)
[2024-12-28 14:05] LABS: HEMOGLOBIN A1c 5.4 % (4.0-6.0)
== END ==
LOC: M WUC 08:37
PROVIDERS: ATTEND Family Medicine
DX: I10 Essential (primary) hypertension (principal); E11.9 Type 2 diabetes mellitus without complications; D50.9 Iron deficiency anemia, unspecified; E78.5 Hyperlipidemia, unspecified

== ENCOUNTER → 2025-03-16 | Outpatient (CLI) | payer MEDICARE | LOC: M PLAIMG 15:25 | PROVIDERS: ATTEND Family Medicine | DX: M47.816 Spondylosis without myelopathy or radiculopathy, lumbar region (principal); M48.061 Spinal stenosis, lumbar region without neurogenic claudication ==

== ENCOUNTER → 2025-05-17 | Outpatient (CLI) | payer MEDICARE ==
[2025-05-17 15:23] LABS: BASO # 0.1 10^3/uL (0.0-0.2); BASO % 0.5 % (0.0-1.0); EOS # 0.2 10^3/uL (0.0-0.5); EOS % 1.8 % (0.0-3.0); LYMPH # 2.8 10^3/uL (1.5-5.0); LYMPH % 26.1 % (24.0-44.0); MONO # 1.1 10^3/uL (0.0-0.8); MONO % 10.2 % (2.0-8.0); NEUTROPHILS # 6.4 10^3/uL (1.5-8.5); NEUTROPHILS % 60.7 % (36.0-66.0); PLATELET COUNT, AUTOMATED 354 10^3/uL (150-450)
[2025-05-17 15:55] LABS: ALT/SGPT 16.0 U/L (7.0-40); AST/SGOT 14.0 U/L (<34); CALCIUM LEVEL 8.8 MG/DL (8.3-10.6); CARBON DIOXIDE LEVEL 30.0 MMOL/L (20-31); CHLORIDE LEVEL 97.0 MMOL/L (98-107); CREATININE FOR GFR 0.77 MG/DL (0.55-1.30); GLOMERULAR FILTRATION RATE 81.9 (>39); MAGNESIUM LEVEL 1.9 MG/DL (1.8-2.4); POTASSIUM SERUM 3.8 MMOL/L (3.5-5.1); SODIUM LEVEL 137.0 MMOL/L (136-145)
[2025-05-17 16:18] LABS: ESTIMATED AVERAGE GLUCOSE 117.0 MG/DL (60-110)
[2025-05-19 10:02] LABS: INSULIN LEVEL 11.5 uIU/mL (<=18.4)
== END ==
LOC: M WUC 09:56
PROVIDERS: ATTEND Family Medicine
DX: I50.32 Chronic diastolic (congestive) heart failure (principal); D50.9 Iron deficiency anemia, unspecified; E11.9 Type 2 diabetes mellitus without complications; K76.0 Fatty (change of) liver, not elsewhere classified

== ENCOUNTER → 2025-05-31 | Outpatient (CLI) | payer MEDICARE | LOC: M PLALAB 14:56 | DX: K74.00 Hepatic fibrosis, unspecified (principal) ==